=== PATIENT | female | born 1940 | race Caucasian/White ===

== ENCOUNTER 2021-05-19 07:39 | Inpatient (IN) | payer MEDICARE ==
[~2021-05-19] VITALS: Ht 170 cm; Wt 86.3 kg
[2021-05-19] MEDS ORDERED: RT-ALBUTEROL HFA 8.5 GM INHALER IH PRN (07:45)
[2021-05-19] MEDS ORDERED: diphenhydrAMINE 25 MG TAB (BENADRYL) PO PRN (07:45)
[2021-05-19] MEDS ORDERED: LOPERAMIDE 2 MG (IMODIUM) TABLET PO PRN (07:45)
[2021-05-19] MEDS ORDERED: CALCIUM CARBONATE 500 MG (TUMS) TAB.CHEW PO PRN (07:45)
[2021-05-19] MEDS ORDERED: DOCUSATE SODIUM 100 MG (COLACE) CAP PO PRN (07:45)
[2021-05-19] MEDS ORDERED: ACETAMINOPHEN 500 MG TAB (TYLENOL) PO PRN (07:45)
[2021-05-19] MEDS ORDERED: FUROSEMIDE 40 MG/4 ML INJ (LASIX) IVP NR (07:45)
--- OUTSIDE RECORDS SUMMARY | 2021-05-19 11:06 | XMS REPORT ---
Author Anneliese Oro Organization [facility] Address [address] [place], [place] [id number] Care Team Providers Care Hydraulic Governor Assembler Name Role Phone Diane Osuna PCP Allergies and Adverse Reactions Name Reaction Notes Lidocaine Neosporin Contrast media allergy Plan of Treatment Planned Activity Comments Planned Date Planned Time Plan/Goal General health panel (comprehensive metabolic panel, CBC, TSH) 09/11/2018 12:00 AM HEMOGLOBIN A1C 09/11/2018 12:00 AM evaluation of worsening plaque psorasis [id number], PVD , worsening Plaque Psorasis, PVD and Venous statis of bilat lower leg s CBC W/ AUTO DIFF (RFLX MAN DIFF IF IND). 09/05/2019 12:00 AM CMP 09/05/2019 12:00 AM TSH 09/05/2019 12:00 AM T4 FREE 09/05/2019 12:00 AM B12 binding protein measurement 09/05/2019 12:00 AM VITAMIN D (25 HYDROXY) 09/05/2019 12:00 AM Mammogram, screening, digital with avery 01/23/2021 1 2:00 AM Medications Active Name Start Date Estimated Completion Date SIG Co mments Metamucil 3.4 gram/5.4 gram oral powder use as directed by oral route 2 times a day Stool Softener oral amlodipine 5 mg oral tablet take 1 tablet (5 mg) by oral route once daily losartan-hydrochlorothiazide 50-12.5 mg oral tablet take 1 tablet by oral route once daily Eliquis 5 mg oral tablet 01/27/2020 TAKE ONE/HALF TA BLET BY MOUTH TWICE DAILY amiodarone oral tablet 200 mg 12/06/2020 12/01/2021 TAKE 1 TABL ET ONCE DAILY rosuvastatin 20 mg oral tablet t penny 1 tablet (20 mg) by oral route once daily Tremfya 100 mg/mL subcutaneous auto-injector inject 1 milliliter (100 mg) by subcutaneous route every 4 weeks for 2 doses then every 8 weeks sertraline 50 mg oral tablet 03/14/2021 03/09/2022 bernabe e 1 tablet (50 mg) by oral route once daily for 90 days omeprazole 20 mg capsule,delayed release 04/09/2021 022 TAKE 1 CAPSULE DAILY Name Start Date Expiration Date SIG Comments furosemide 20 mg oral tablet 06/05/2019 01/01/2020 bernabe e 1 tablet (20 mg) by oral route once daily prn for 30 days Macrobid 100 mg oral capsule 09/05/2019 09/12/2019 bernabe e 1 capsule (100 mg) by oral route every 12 hours with food for 7 days Lipitor 40 mg oral tablet 09/19/2019 10/19/2019 take 1 tablet by oral route every other day for 30 days Keflex 500 mg oral capsule 09/29/2019 10/13/2019 take 2 capsules (1,000 mg) by oral route every 12 hours for 14 days Eliquis 5 mg oral tablet 01/27/2020 07/25/2020 2 times per day for 30 days as directed takes 1/2 tab to save $ and bleeding iss ues doxycycline hyclate 100 mg oral tablet 04/05/2020 0 take 1 tablet (100 mg) by oral route every 12 hours for 14 days mupirocin 2 % topical ointment 06/09/2020 08/18/2020 A PPLY A SMALL AMOUNT TO THE AFFECTED AREA BY TOPICAL ROUTE 3 TIMES PER DAY FOR 30 DAYS for 14 days losartan 50 mg tablet 10/25/2020 11/01/2020 TAKE 1 TABLET DAILY FOR 7 DAYS. Macrobid oral capsule 100 mg 10/28/2020 11/04/2020 bernabe e 1 capsule (100 mg) by oral route 2 times per day with food for 7 days Macrobid 100 mg oral capsule 02/20/2021 02/27/2021 bernabe e 1 capsule (100 mg) by oral route every 12 hours with food for 7 days Discontinued Name Start Date Discontinued Date SIG Comments tramadol 50 mg oral tablet 03/14/2021 take 1 tablet (50 mg) by oral route every 6 hours as needed prednisone 20 mg oral tablet 03/14/2021 bernabe e 1 tablet (20 mg) by oral route 2 times per day Xanax 0.25 mg oral tablet 02/20/2021 cephalexin 500 mg oral capsule 09/19/2019 take one t ab PO TID nystatin topical 03/14/2021 Humira 20 mg/0.4 mL subcutaneous syringe kit 03/14/2021 inject 1 milliliter by subcutaneous route every 2 weeks hydrocortisone 2.5 % topical cream 09/17/2019 03/14/2021 APPLY A THIN LAYER TO AFFECTED AREA(S) TWICE DAILY Zoloft 25 mg oral tablet 02/20/2021 02/28/2021 take 1 tablet (25 mg) by oral route once daily for 30 days alprazolam 0.25 mg oral tablet 02/20/2021 03/14/2021 t penny 1 tablet by oral route once a day (at bedtime) as needed for 30 days Problem List Description Status Onset CAD (coronary artery disease) Active Essential Hypertension Active History of SD (myocardial infarction) Active Pedal edema Active Situational anxiety Active PVD (peripheral vascular disease) Active Dysthymic syndrome Active Plaque psoriasis Active Situational depression Active Lower extremity venous stasis Active Atrial Fibrillation Active Mixed hyperlipidemia Active Chronic constipation Active GERD (gastroesophageal reflux disease) Active shelter use 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 Active Gait disturbance Active CVA, old, alterations of sensations Active Osteoarthritis knee Active Osteoarthritis of both hips Active Onychomycosis of toenail Active Polyarthralgia Active 03/15/2021 Vitamin B12 deficiency Active 03/15/2021 Vitamin D deficiency Active 03/15/2021 Iron deficiency anemia due to chronic blood loss Active 03/15/2021 Vital Signs Date Time BP-Sys(mm[Hg] BP-Karina(mm[Hg]) HR(bpm) RR(rpm) Temp WT HT HC BMI BSA BMI Percentile O2 Sat(%) 04/26/2021 9:57:00 AM 140 mm[Hg] 66 mm[Hg] 63 {beats}/min 20 rpm 98.1 F 197 lbs 67 in 30.8542 kg/m2 2.0553 m2 97 % 03/30/2021 9:17:00 AM 150 mm[Hg] 68 mm[Hg] 63 {beats}/min 20 rpm 97.2 F 197 lbs 67 in 30.85 kg/m2 2.06 m2 98 % 03/16/2021 8:51:00 AM 156 mm[Hg] 78 mm[Hg] 68 {beats}/min 20 rpm 97.3 F 196.312 lbs 67 in 30.7466 kg/m2 2.0517 m2 95 % 03/14/2021 9:12:00 AM 154 mm[Hg] 74 mm[Hg] 72 {beats}/min 18 rpm 97.3 F 196.312 lbs 67 in 30.75 kg/m2 2.05 m2 96 % 02/20/2021 9:19:00 AM 116 mm[Hg] 60 mm[Hg] 65 {beats}/min 18 rpm 97.9 F 67 in 95 % 01/25/2021 9:51:00 AM 128 mm[Hg] 80 mm[Hg] 101 {beats}/min 18 rpm 97.9 F 204 lbs 67 in 31.9506 kg/m2 2.0915 m2 97 % 12/06/2020 9:37:00 AM 140 mm[Hg] 60 mm[Hg] 57 {beats}/min 16 rpm 97.9 F 210 lbs 67 in 32.89 kg/m2 2.12 m2 96 % 11/29/2020 9:16:00 AM 124 mm[Hg] 66 mm[Hg] 63 {beats}/min 18 rpm 98.1 F 210 lbs 67 in 32.89 kg/m2 2.12 m2 97 % 10/28/2020 10:53:00 AM 104 mm[Hg] 70 mm[Hg] 113 {beats}/min 18 rpm 97.9 F 67 in 97 % 10/06/2020 8:59:00 AM 148 mm[Hg] 70 mm[Hg] 65 {beats}/min 24 rpm 97.7 F 215.312 lbs 67 in 33.7224 kg/m2 2.1487 m2 98 % 09/21/2020 9:30:00 AM 128 mm[Hg] 64 mm[Hg] 75 {beats}/min 18 rpm 98.6 F 217 lbs 67 in 33.99 kg/m2 2.16 m2 97 % 08/11/2020 1:13:00 PM 148 mm[Hg] 74 mm[Hg] 62 {beats}/min 18 rpm 97.2 F 209 lbs 67 in 32.7337 kg/m2 2.1169 m2 98 % 08/10/2020 3:33:00 PM 150 mm[Hg] 68 mm[Hg] 60 {beats}/min 06/16/2020 9:48:00 AM 130 mm[Hg] 70 mm[Hg] 118 {beats}/min 18 rpm 98.1 F 214.312 lbs 67 in 33.57 kg/m2 2.14 m2 98 % 03/24/2020 8:52:00 AM 142 mm[Hg] 66 mm[Hg] 66 {beats}/min 18 rpm 98.7 F 211 lbs 67 in 33.0469 kg/m2 2.1271 m2 97 % 09/18/2019 12:33:00 PM 100 mm[Hg] 78 mm[Hg] 63 {beats}/min 16 rpm 97.7 F 09/09/2019 4:20:00 PM 138 mm[Hg] 70 mm[Hg] 88 {beats}/min 16 rpm 07/20/2019 8:52:00 AM 140 mm[Hg] 64 mm[Hg] 76 {beats}/min 18 rpm 97.5 F 222 lbs 67 in 34.7698 kg/m2 2.1818 m2 98 % 07/04/2019 8:13:00 AM 150 mm[Hg] 60 mm[Hg] 84 {beats}/min 18 rpm 97.9 F 219.312 lbs 67 in 34.35 kg/m2 2.17 m2 98 % 06/12/2019 9:29:00 AM 140 mm[Hg] 68 mm[Hg] 69 {beats}/min 18 rpm 97.9 F 222 lbs 67 in 34.7698 kg/m2 2.1818 m2 96 % 03/30/2019 10:43:00 AM 150 mm[Hg] 64 mm[Hg] 62 {beats}/min 18 rpm 98.1 F 221 lbs 67 in 34.61 kg/m2 2.18 m2 96 % 02/16/2019 10:15:00 AM 130 mm[Hg] 66 mm[Hg] 65 {beats}/min 18 rpm 97.9 F 215 lbs 67 in 33.6734 kg/m2 2.1471 m2 97 % 02/02/2019 10:49:00 AM 126 mm[Hg] 68 mm[Hg] 78 {beats}/min 18 rpm 97.9 F 216 lbs 67 in 33.83 kg/m2 2.15 m2 95 % 11/14/2018 9:12:00 AM 122 mm[Hg] 78 mm[Hg] 65 {beats}/min 18 rpm 97.9 F 209.25 lbs 67 in 32.7728 kg/m2 2.1182 m2 97 % 09/09/2018 11:20:00 AM 140 mm[Hg] 70 mm[Hg] 62 {beats}/min 18 rpm 98.1 F 205 lbs 67 in 32.11 kg/m2 2.10 m2 98 % Social History Name Description Comments Tobacco Never smoker History of Procedures Date Ordered Description Order Status 09/10/2018 12:00 AM MAMMOGRAPHY SCREENING, BILATERAL Reviewe d 09/11/2018 12:00 AM ROUTINE VENIPUNCTURE Reviewed 09/16/2018 12:00 AM MAMMOGRAPHY BILATERAL DX DIGITAL Reviewe d 09/16/2018 12:00 AM US BREAST UNI REAL TIME WITH IMAGE COMPL ETE Reviewed 09/25/2018 12:00 AM BX BREAST 1ST LESION US IMAG Reviewed 03/11/2019 12:00 AM BREAST TOMOSYNTHESIS UNI Reviewed 03/30/2019 12:00 AM TDAP VACCINE 7 YRS/> IM Reviewed 03/01/2020 12:00 AM BREAST TOMOSYNTHESIS BI Reviewed 07/21/2020 12:00 AM Moderna Covid-19 Vaccine Reviewed 08/10/2020 12:00 AM NO CHARGE OV Reviewed 08/18/2020 12:00 AM Moderna Covid-19 Vaccine Reviewed 10/06/2020 9:05 AM URINALYSIS AUTO W/O SCOPE Reviewed 11/29/2020 12:00 AM COMPLETE CBC W/AUTO DIFF WBC Reviewed 11/29/2020 12:00 AM COMPREHEN METABOLIC PANEL Reviewed 11/29/2020 12:00 AM COLLECTION VENOUS BLOOD VENIPUNCTURE Rev iewed 02/20/2021 10:14 AM URINALYSIS AUTO W/O SCOPE Reviewed 02/20/2021 12:00 AM COMPLETE CBC W/AUTO DIFF WBC Reviewed 02/20/2021 12:00 AM COMPREHEN METABOLIC PANEL Reviewed 02/20/2021 12:00 AM ASSAY THYROID STIM HORMONE Reviewed 02/20/2021 12:00 AM ASSAY OF FREE THYROXINE Reviewed 02/20/2021 12:00 AM LIPID PANEL Reviewed 02/20/2021 12:00 AM VITAMIN D 25 HYDROXY Reviewed 02/20/2021 12:00 AM COLLECTION VENOUS BLOOD VENIPUNCTURE Rev iewed 03/18/2021 12:00 AM REMOVAL IMPACTED CERUMEN INSTRUMENTATION UNILAT Reviewed 03/18/2021 12:00 AM TRIM NAIL(S) ANY NUMBER Reviewed 03/30/2021 12:00 AM INFLUENZA VACCINE SPLT PRSRV FREE INC AN TIGEN IM Reviewed 03/30/2021 12:00 AM THER/PROPH/DIAG INJ SC/IM Reviewed Results Summary Date and Description Results 10/06/2020 9:28 AM Clarity Ur cloudy Urine-Edgard r straw yellow Glucose Ur-sCnc neg Bilirub Ur Ql neg Ketones Ur Ql Strip neg Sp Gr Ur Qn 1.010 Hgb Ur Ql Strip trace pH Ur-LsCnc 5.5 Prot Ur Ql Strip neg Urobilinogen Ur-mCnc 0.2 Nitrite Ur Ql Strip neg WBC # Ur small 11/29/2020 10:45 AM WBC 7.0 RBC 4.18 HGB 13.40 g /dLHCT 41.90 %MCV 100.0 fLMCH 32.10 pgMCHC 32.0 g/dLRDW SD 53 %RDW CV 14.40 %MPV 9.50 fLPLT 181 x10E3/uLNRBC# 0.00 NRBC% 0.0 %NEUT 68.2 %LYMP 13.5 %MONO 12.3 %EOS 4.6 %BASO 1.1 #NEUT 4.79 #LYMP 0.95 #MONO 0.86 #EOS 0.32 #BASO 0.08 MANUAL DIFF NOT IND GLUCOSE 115 SODIUM 140 POTASSIUM 4.2 CHLORIDE 98.0 mmol/LCO2 30 BUN 11.0 mg/dLCREATININE 0.70 mg/dLSGOT/AST 24 SGPT/ALT 15 ALK PHOS 90 TOTAL PROTEIN 7.4 ALBUMIN 4.3 TOTAL BILI 0.6 CALCIUM 9.30 mg/dLAGE 80 GFR NonAA 81 GFR AA 98 eGFR 81 mL/min/1.73meGFR AA* >60 mL/min/1.73m 02/20/2021 10:25 AM WBC 9.0 RBC 3.60 HGB 11.40 g /dLHCT 35.90 %MCV 100.0 fLMCH 31.70 pgMCHC 31.80 g/dLRDW SD 53 %RDW CV 14.50 %MPV 9.90 fLPLT 160 x10E3/uLNRBC# 0.00 NRBC% 0.0 %NEUT 76.7 %LYMP 9.6 %MONO 9.3 %EOS 3.0 %BASO 0.7 #NEUT 6.91 #LYMP 0.86 #MONO 0.84 #EOS 0.27 #BASO 0.06 MANUAL DIFF NOT IND GLUCOSE 128 SODIUM 135 POTASSIUM 3.9 CHLORIDE 100.0 mmol/LCO2 28 BUN 13.0 mg/dLCREATININE 0.70 mg/dLSGOT/AST 30 SGPT/ALT 21 ALK PHOS 87 TOTAL PROTEIN 6.9 ALBUMIN 3.5 TOTAL BILI 0.6 CALCIUM 9.10 mg/dLAGE 80 GFR NonAA 81 GFR AA 98 eGFR 81 mL/min/1.73meGFR AA* >60 mL/min/1.73mTSH 0.92 VITAMIN D 32.2 TRIGLYCERIDES 74 CHOLESTEROL 110.0 mg/dLHDL 55 TOT CHOL/HDL 2.0 LDL (CALC) 40 FREE T4 1.96 02/20/2021 10:26 AM Clarity Ur cl Urine-Color ye llow Glucose Ur-sCnc neg Bilirub Ur Ql neg Ketones Ur Ql Strip neg Sp Gr Ur Qn 1.010 Hgb Ur Ql Strip sm pH Ur- LsCnc 6.0 Prot Ur Ql Strip neg Urobilinogen Ur-mCnc 0.2 Nitrite Ur Ql Strip neg WBC # Ur sm History Of Immunizations Name Date Admin Mfg Name Mfg Code Trade Name Lot# Route Inj Vis Given Vis Pub CVX Tdap 03/30/2019 GlaxoSmithKline SKB BOOSTRIX [id number] Intramuscula r Right Upper Arm 03/30/2019 06/10/2021 115 Covid-19 07/21/2020 [employer] MOD Moderna COVID-19 Vaccin e [id number] Intramuscular Left Upper Arm 07/21/2020 05/10/2020 207 Covid-19 08/18/2020 Moderna [employer] MOD Moderna COVID-19 Vaccin e [id number] Intramuscular Left Deltoid 08/18/2020 05/10/2020 207 Influenza 03/30/2021 sanofi pasteur PMC FLUZONE-HIGH DOSE [id number] In tramuscular Left Deltoid 03/30/2021 01/13/2021 135 History of Past Illness Name Date of Onset Comments Essential Hypertension History of SD (myocardial infarction) CAD (coronary artery disease) Pedal edema Situational anxiety PVD (peripheral vascular disease) Dysthymic syndrome Plaque psoriasis Situational depression Lower extremity venous stasis Atrial Fibrillation Mixed hyperlipidemia Chronic constipation GERD (gastroesophageal reflux disease) 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 use 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 Gait disturbance CVA, old, alterations of sensations Osteoarthritis knee Osteoarthritis of both hips Onychomycosis of toenail Polyarthralgia 03/15/2021 Vitamin B12 deficiency 03/15/2021 Vitamin D deficiency 03/15/2021 Iron deficiency anemia due to chronic blood loss 03/15/2021 Right hip pain Sep 09 2018 11:25AM Lumbar back pain Sep 09 2018 11:25AM Psoriasis (a type of skin inflammation) Sep 09 2018 11:25AM Encounter for screening mammogram for breast cancer Sep 10 4:35PM Lumbar back pain Sep 11 2018 8:22AM Right hip pain Sep 11 2018 8:22AM CAD (coronary artery disease) Sep 11 2018 9:37PM Hypertension Sep 11 2018 9:37PM Hypothyroidism Sep 11 2018 9:37PM CAD (coronary artery disease) Sep 11 2018 9:54PM Screening Mammogram For High Risk Patient Sep 16 2018 10:30A M Breast mass, right Sep 19 2018 11:56AM Breast cyst, right Sep 25 2018 10:35AM PVD (peripheral vascular disease) Nov 14 2018 9:12AM Varicosities of leg Nov 14 2018 9:12AM shelter (current) use 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 Nov 14 2018 9:12A M CVD (cardiovascular disease) Nov 14 2018 9:12AM CVD (cardiovascular disease) Feb 02 2019 10:53AM Varicosities of leg Feb 02 2019 10:53AM Anticoagulant long-term use Feb 02 2019 10:53AM Diabetes Feb 02 2019 10:53AM Dermatitis Feb 16 2019 10:19AM Acute Left Bitten or stung by nonvenomou s insect and other nonvenomous arthropods, initial encounter Improving Feb 16 2019 10:19AM Breast mass, right Mar 11 2019 12:23PM Immunization due Mar 30 2019 10:47AM CVD (cardiovascular disease) Mar 30 2019 10:47AM HTN (hypertension) Mar 30 2019 10:47AM Throat Pain Jun 12 2019 9:31AM Cough Jun 12 2019 9:31AM Viral illness Jun 12 2019 9:31AM CAD (coronary artery disease) Jul 04 2019 8:18AM Essential Hypertension Jul 04 2019 8:18AM History of SD (myocardial infarction) Jul 04 2019 8:18AM Situational anxiety Jul 04 2019 8:18AM Chest pain Jul 04 2019 8:18AM PVD (peripheral vascular disease) Jul 29 2019 9:01AM Toenail fungus Jul 29 2019 9:01AM CAD (coronary artery disease) Jul 29 2019 9:01AM Varicosities of leg Jul 29 2019 9:01AM Neuropathy Jul 29 2019 9:01AM PVD (peripheral vascular disease) Jul 20 2019 8:56AM CAD (coronary artery disease) Jul 20 2019 8:56AM Varicosities of leg Jul 20 2019 8:56AM Neuropathy Jul 20 2019 8:56AM Toenail fungus Jul 20 2019 8:56AM Fatigue Sep 05 2019 11:04AM Weakness Sep 05 2019 11:04AM Anemia Sep 05 2019 11:04AM CVD (cardiovascular disease) Sep 05 2019 11:04AM HTN (hypertension) Sep 05 2019 11:04AM Hypothyroid Sep 05 2019 11:04AM B12 deficiency Sep 05 2019 11:04AM Vitamin D deficiency Sep 05 2019 11:04AM CVD (cardiovascular disease) Sep 09 2019 4:02PM CVA (cerebral vascular accident) Sep 09 2019 4:02PM Anxiety Sep 09 2019 4:02PM Varicosities of leg Sep 09 2019 4:02PM HTN (hypertension) Sep 18 2019 11:24AM CVA (cerebral vascular accident) Sep 18 2019 11:24AM CVD (cardiovascular disease) Sep 18 2019 11:24AM Breast cancer screening by mammogram Mar 01 2020 9:00AM CVD (cardiovascular disease) Mar 24 2020 8:58AM CVA (cerebral vascular accident) Mar 24 2020 8:58AM Varicosities of leg Mar 24 2020 8:58AM Fungal toenail infection Mar 24 2020 8:58AM CVD (cardiovascular disease) Mar 24 2020 12:14PM CAD (coronary artery disease) Mar 24 2020 12:14PM Varicose veins of both lower extremities Mar 24 2020 12:14PM PVD (peripheral vascular disease) Mar 24 2020 12:14PM Fungal toenail infection Mar 24 2020 12:14PM Anxiety May 19 2020 9:43AM 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) use 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 May 19 2020 9:43A M CVD (cardiovascular disease) Jun 16 2020 10:03AM Varicose veins of both lower extremities Jun 16 2020 10:03AM PVD (peripheral vascular disease) Jun 16 2020 10:03AM CVD (cardiovascular disease) Jun 17 2020 8:02PM PVD (peripheral vascular disease) Jun 17 2020 8:02PM Varicosities of leg Jun 17 2020 8:02PM Fungal nail infection Jun 17 2020 8:02PM Encounter for administration of COVID-19 vaccine Jul 19 2020 7:23PM Encounter for administration of COVID-19 vaccine Aug 15 2020 3:18PM CVD (cardiovascular disease) Aug 11 2020 1:19PM HTN (hypertension) Aug 11 2020 1:19PM Anxiety Aug 11 2020 1:19PM CAD (coronary artery disease) Aug 11 2020 1:19PM Chronic PVD (peripheral vascular disease) Sep 21 2020 2:23P M Bilateral Lower Fungal toenail infection Sep 21 2020 2:23PM Varicose veins of right lower extremity with inflammation Ap r 2020 2:23PM Varicose veins of left lower extremity with inflammation Sep 21 2020 2:23PM CVD (cardiovascular disease) Sep 21 2020 9:38AM Varicose veins of right lower extremity with inflammation Ap r 2020 9:38AM Varicose veins of left lower extremity with inflammation Sep 21 2020 9:38AM Bilateral Fungal toenail infection Sep 21 2020 9:38AM UTI (Urinary Tract Infection) Oct 06 2020 9:05AM Tachycardia Oct 28 2020 10:51AM Atrial fibrillation Oct 28 2020 10:51AM Anxiety Oct 28 2020 10:51AM HTN (hypertension) Oct 28 2020 10:51AM HTN (hypertension) Nov 29 2020 10:23AM Afib Nov 29 2020 10:23AM Atrial fibrillation Nov 29 2020 9:16AM Anxiety Nov 29 2020 9:16AM PVD (peripheral vascular disease) Dec 06 2020 6:07PM CAD (coronary artery disease) Dec 06 2020 6:07PM Varicose veins of both lower extremities Dec 06 2020 6:07PM Pedal edema Dec 06 2020 6:07PM Toenail deformity Dec 06 2020 9:36AM PVD (peripheral vascular disease) Dec 06 2020 9:36AM Varicose veins of both lower extremities Dec 06 2020 9:36AM CAD (coronary artery disease) Dec 06 2020 9:36AM Screening for breast cancer Jan 23 2021 11:27AM CAD (coronary artery disease) Jan 25 2021 9:50AM Essential Hypertension Jan 25 2021 9:50AM Situational anxiety Jan 25 2021 9:50AM Edema Jan 25 2021 9:50AM HTN (hypertension) Sep 2020 10:13AM PAD (peripheral artery disease) Sep 2020 10:13AM Hyperlipidemia Sep 2020 10:13AM Fatigue Sep 2020 10:13AM Vitamin D deficiency Sep 2020 10:13AM Hypothyroid Sep 2020 10:13AM UTI (urinary tract infection) Sep 2020 10:13AM Anxiety Sep 2020 9:19AM Contusion Sep 2020 9:19AM CAD (coronary artery disease) Sep 2020 9:19AM Essential Hypertension Sep 2020 9:19AM Pedal edema Sep 2020 9:19AM CAD (coronary artery disease) Mar 15 2021 10:55AM Plaque psoriasis Mar 15 2021 10:55AM Osteoarthritis of both hips Mar 15 2021 10:55AM Polyarthralgia Mar 15 2021 10:55AM Vitamin B12 deficiency Mar 15 2021 10:55AM Vitamin D deficiency Mar 15 2021 10:55AM Iron deficiency anemia due to chronic blood loss Mar 15 2021 10:55AM Bitten or stung by nonvenomous insect an d other nonvenomous arthropods, initial encounter Mar 15 2021 10:55AM Lumbar stenosis with neurogenic claudication Mar 15 2021 10: 55AM CAD (coronary artery disease) Mar 14 2021 9:22AM PVD (peripheral vascular disease) Mar 14 2021 9:22AM Plaque psoriasis Mar 14 2021 9:22AM Situational depression Mar 14 2021 9:22AM Lower extremity venous stasis Mar 14 2021 9:22AM Onychomycosis of toenail Mar 14 2021 9:22AM Cerumen debris on tympanic membrane of both ears Mar 14 2021 9:22AM Cerumen debris on tympanic membrane of both ears Mar 16 2021 8:54AM Bilateral Onychomycosis Mar 16 2021 8:54AM Tremors of nervous system Mar 30 2021 9:17AM CAD (coronary artery disease) Mar 30 2021 9:17AM Essential Hypertension Mar 30 2021 9:17AM Situational anxiety Mar 30 2021 9:17AM Plaque psoriasis Mar 30 2021 9:17AM Gait disturbance Mar 30 2021 9:17AM Osteoarthritis knee Mar 30 2021 9:17AM Osteoarthritis of both hips Mar 30 2021 9:17AM Need for vaccination Mar 30 2021 9:17AM Payers Insurance Name Company Name Plan Name Plan Number Policy Number Raj cy Group Number Start Date Medicare RHC Medicare RHC [id number] N/ A [id number] N/ A Medicare Part B Medicare Of [place] [id number] N/A Medicare Part A Medicare - Lab/Xray [id number] N/A History of Encounters Visit Date Visit Type Provider 04/26/2021 Office visit Diane A. Major PLANT CARE WORKER 03/30/2021 Office visit Diane A. Major PLANT CARE WORKER 03/16/2021 Office visit Hanane Ojeda PLANT CARE WORKER 03/14/2021 Office visit Hanane Ojeda PLANT CARE WORKER 02/20/2021 Office visit Diane A. Major PLANT CARE WORKER 01/25/2021 Office visit Diane A. Major PLANT CARE WORKER 12/30/2020 Voided Diane A. Major PLANT CARE WORKER 12/06/2020 Office visit Diane A. Major PLANT CARE WORKER 11/29/2020 Office visit Diane A. Major PLANT CARE WORKER 11/24/2020 Hospital Sarai Juarez MD 10/28/2020 Office visit Diane A. Major PLANT CARE WORKER 10/06/2020 Office visit Diane A. Major PLANT CARE WORKER 09/21/2020 Office visit Diane A. Major PLANT CARE WORKER 08/18/2020 Nurse visit Hanane Ojeda PLANT CARE WORKER 08/11/2020 Office visit Diane A. Major PLANT CARE WORKER 08/10/2020 Nurse visit Jordana Silva APR N 07/21/2020 Nurse visit Hanane Ojeda PLANT CARE WORKER 06/16/2020 Office visit Diane A. Major PLANT CARE WORKER 06/16/2020 Voided Susana FLANAGAN RN 05/19/2020 Office visit Diane A. Major PLANT CARE WORKER 03/24/2020 Office visit Diane A. Major PLANT CARE WORKER 02/02/2020 Laboratory Susana FLANAGAN RN 11/03/2019 Laboratory Kathy FLANAGAN RN 09/18/2019 Office visit Diane A. Major PLANT CARE WORKER 09/09/2019 Office visit Diane A. Major PLANT CARE WORKER 09/07/2019 Hospital Sarai Juarez MD 09/07/2019 [facility] Anthony Harley MD 07/20/2019 Office visit Diane A. Major PLANT CARE WORKER 07/04/2019 Office visit Hanane Ojeda PLANT CARE WORKER 06/12/2019 Office visit Diane A. Major PLANT CARE WORKER 03/30/2019 Office visit Diane A. Major PLANT CARE WORKER 02/16/2019 Office visit Diane A. Major PLANT CARE WORKER 02/02/2019 Office visit Diane A. Major PLANT CARE WORKER 11/14/2018 Office visit Diane A. Major PLANT CARE WORKER 09/09/2018 Office visit Diane A. Major PLANT CARE WORKER 10/23/2017 Hospital Sarai Juarez MD 05/07/2017 [facility] Sarai Juarez MD 11/22/2016 [facility] Anthony Harley MD 11/01/2016 [facility] Anthony Harley MD 11/01/2016 [facility] Sarai Juarez MD 10/29/2016 [facility] Sarai Juarez MD 10/24/2016 [facility] Sarai Juarez MD 05/31/2016 [facility] Emerson Siddiqui MD 05/31/2016 [facility] 05/30/2016 [facility] Emerson Siddiqui MD 05/29/2016 [facility] 05/29/2016 [facility] Sarai Juarez MD 05/13/2015 [facility] Sarai Juarez MD 10/29/2014 Hospital Sarai Juarez MD
--- OUTSIDE RECORDS SUMMARY | 2021-05-19 11:06 | XMS REPORT ---
Author Anneliese Oro Organization [facility] Address [address] [place], [place] [id number] Care Team Providers Care Truck Packer Name Role Phone Diane Osuna PCP Allergies [...] release 04/09/2021 022 TAKE 1 CAPSULE DAILY Zithromax 500 mg oral tablet 05/15/2021 05/22/2021 bernabe e 1 tablet (500 mg) by oral route once daily for 7 days prednisone 10 mg oral tablet 05/15/2021 05/20/2021 bernabe e 1 by oral route QD for 5 days albuterol sulfate 2.5 mg /3 mL (0.083 %) inhalation so lution for nebulization 05/17/2021 09/14/2021 inhale 3 milliliters (2.5 mg ) by nebulization route 4 times per day for 30 days promethazine-codeine 6.25-10 mg/5 mL oral syrup 05/17/2021 06/10/2021 take 5-10 milliliters by oral route once a day (at bedtime) as needed for 24 days Name Start Date Expiration Date SIG Comments [...] disease) Active Essential Hypertension Active History of [place] (myocardial infarction) Active Pedal edema Active Situational anxiety Active PVD (peripheral vascular disease) Active Dysthymic syndrome Active Plaque psoriasis Active Situational depression Active Lower extremity venous stasis Active Atrial Fibrillation Active Mixed hyperlipidemia Active Chronic constipation Active GERD (gastroesophageal reflux disease) Active prison use 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 Active Gait disturbance Active [...] Results 10/06/2020 9:28 AM Clarity Ur cloudy Urine-[place] r straw yellow Glucose Ur-sCnc neg Bilirub [...] Vis Given Vis Pub CVX Tdap 03/30/2019 Tidy [id number] SKB BOOSTRIX [id number] Intramuscula r Right Upper Arm 03/30/2019 06/10/2021 115 Covid-19 07/21/2020 Moderna [employer] MOD Moderna COVID-19 Vaccin e [id number] Intramuscular Left Upper Arm 07/21/2020 05/10/2020 207 Covid-19 08/18/2020 [employer] MOD Moderna COVID-19 Vaccin e [id number] Intramuscular Left Deltoid 08/18/2020 05/10/2020 207 Influenza 03/30/2021 [facility] FLUZONE-HIGH DOSE [id number] In tramuscular Left Deltoid 03/30/2021 01/13/2021 135 History of Past Illness Name Date of Onset Comments Essential Hypertension History of [place] (myocardial infarction) CAD (coronary artery disease) Pedal edema Situational anxiety PVD (peripheral vascular disease) Dysthymic syndrome Plaque psoriasis Situational depression Lower extremity venous stasis Atrial Fibrillation Mixed hyperlipidemia Chronic constipation GERD (gastroesophageal reflux disease) 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 Gait disturbance CVA, old, [...] Varicosities of leg Nov 14 2018 9:12AM 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 Nov 14 2018 [...] Hypertension Jul 04 2019 8:18AM History of [place] (myocardial infarction) Jul 04 2019 8:18AM Situational [...] 2020 12:14PM Anxiety May 19 2020 9:43AM 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 May 19 2020 [...] Essential Hypertension Sep 2020 9:19AM Pedal edema Feb 20 2021 9:19AM CAD (coronary artery disease) Mar 15 [...] Need for vaccination Mar 30 2021 9:17AM Essential Hypertension Apr 26 2021 9:56AM Pedal edema Apr 26 2021 9:56AM Situational depression Apr 26 2021 9:56AM Gait disturbance Apr 26 2021 9:56AM Bursitis Apr 26 2021 9:56AM Encounter for laboratory testing for COVID-19 virus May 17 11:45AM Shortness of breath May 17 2021 11:45AM Diarrhea May 17 2021 11:45AM Congestion of nasal sinus May 17 2021 11:45AM Runny nose May 17 2021 11:45AM Body aches May 17 2021 11:45AM Cough May 17 2021 11:45AM COVID May 17 2021 12:02PM Payers Insurance Name Company Name Plan Name Plan Number Policy Number Raj cy Group Number Start Date Medicare RHC Medicare RHC [id number] N/ A [id number] N/ A Medicare Part B Medicare Of [place] [id number] N/A Medicare Part A Medicare - Lab/Xray [id number] N/A History of Encounters Visit Date Visit Type Provider 05/17/2021 Office visit Diane Osuna CHAIR CANER 04/26/2021 Office visit Diane Osuna CHAIR CANER 03/30/2021 Office visit Diane Osuna CHAIR CANER 03/16/2021 Office visit Hanane Ojeda CHAIR CANER 03/14/2021 Office visit Hanane Ojeda CHAIR CANER 02/20/2021 Office visit Diane A. Major CHAIR CANER 01/25/2021 Office visit Diane A. Major CHAIR CANER 12/30/2020 Voided Diane A. Major CHAIR CANER 12/06/2020 Office visit Diane A. Major CHAIR CANER 11/29/2020 Office visit Diane A. Major CHAIR CANER 11/24/2020 [facility] Sarai Juarez MD 10/28/2020 Office visit Diane A. Major CHAIR CANER 10/06/2020 Office visit Diane A. Major CHAIR CANER 09/21/2020 Office visit Diane A. Major CHAIR CANER 08/18/2020 Nurse visit Hanane Ojeda CHAIR CANER 08/11/2020 Office visit Diane A. Major CHAIR CANER 08/10/2020 Nurse visit Jordana MartinezNathalia Silva APR N 07/21/2020 Nurse visit Hanane Ojeda CHAIR CANER 06/16/2020 Office visit Diane A. Major CHAIR CANER 06/16/2020 Voided Susana FLANAGAN RN 05/19/2020 Office visit Diane A. Major CHAIR CANER 03/24/2020 Office visit Diane A. Major CHAIR CANER 02/02/2020 Laboratory Susana FLANAGAN RN 11/03/2019 Laboratory Kathy FLANAGAN RN 09/18/2019 Office visit Diane A. Major CHAIR CANER 09/09/2019 Office visit Diane A. Major CHAIR CANER 09/07/2019 [facility] Sarai Juarez MD 09/07/2019 [facility] Anthony Harley MD 07/20/2019 Office visit Diane A. Major CHAIR CANER 07/04/2019 Office visit Hanane Ojeda CHAIR CANER 06/12/2019 Office visit Diane A. Major CHAIR CANER 03/30/2019 Office visit Diane A. Major CHAIR CANER 02/16/2019 Office visit Diane A. Major CHAIR CANER 02/02/2019 Office visit Diane A. Major CHAIR CANER 11/14/2018 Office visit Diane A. Major CHAIR CANER 09/09/2018 Office visit Diane A. Major CHAIR CANER 10/23/2017 [facility] Sarai Juarez MD 05/07/2017 [facility] Sarai Juarez MD 11/22/2016 [facility] Anthony Harley MD 11/01/2016 [facility] Anthony Harley MD 11/01/2016 [facility] Sarai Juarez MD 10/29/2016 [facility] Sarai Juarez MD 10/24/2016 [facility] Sarai Juarez MD 05/31/2016 [facility] Emerson Siddiqui MD 05/31/2016 [facility] 05/30/2016 [facility] Emerson Siddiqui MD 05/29/2016 [facility] 05/29/2016 [facility] Sarai Juarez MD 05/13/2015 [facility] Sarai Juarez MD 10/29/2014 [facility] Sarai Juarez MD
--- OUTSIDE RECORDS SUMMARY | 2021-05-19 11:06 | XMS REPORT ---
Author Anneliese Oro Organization [facility] Address [address] [place], [place] [address] Care Team Providers Care Applications Engineer Manufacturing Name Role Phone Diane Osuna PCP Allergies [...] 4 times per day for 30 days Name Start Date Expiration Date SIG [...] disease) Active Essential Hypertension Active History of [place] (myocardial infarction) Active Pedal edema Active Situational anxiety Active PVD (peripheral vascular disease) Active Dysthymic syndrome Active Plaque psoriasis Active Situational depression Active Lower extremity venous stasis Active Atrial Fibrillation Active Mixed hyperlipidemia Active Chronic constipation Active GERD (gastroesophageal reflux disease) Active 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 MOD Moderna COVID-19 Vaccin e [id number] Intramuscular Left Upper Arm 07/21/2020 05/10/2020 207 Covid-19 08/18/2020 [employer] MOD Moderna COVID-19 Vaccin e [id number] Intramuscular Left Deltoid 08/18/2020 05/10/2020 207 Influenza 03/30/2021 [facility] FLUZONE-HIGH DOSE [id number] In tramuscular Left Deltoid 03/30/2021 01/13/2021 135 History of Past Illness Name Date of Onset Comments Essential Hypertension History of [place] (myocardial infarction) CAD (coronary artery disease) Pedal edema Situational anxiety PVD (peripheral vascular disease) Dysthymic syndrome Plaque psoriasis Situational depression Lower extremity venous stasis Atrial Fibrillation Mixed hyperlipidemia Chronic constipation GERD (gastroesophageal reflux disease) 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 Gait disturbance CVA, old, [...] Varicosities of leg Nov 14 2018 9:12AM 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 Nov 14 2018 [...] Hypertension Jul 04 2019 8:18AM History of [place] (myocardial infarction) Jul 04 2019 8:18AM Situational [...] 2020 12:14PM Anxiety May 19 2020 9:43AM USP (current) use 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 May 19 2020 [...] (peripheral artery disease) Sep 2020 10:13AM Hyperlipidemia Feb 20 2021 10:13AM Fatigue Sep 2020 10:13AM Vitamin D [...] 2021 11:45AM Cough May 17 2021 11:45AM Payers Insurance Name Company Name Plan Name Plan Number Policy Number Raj cy Group Number Start Date Medicare RHC Medicare RHC [id number] N/ A [facility] [id number] N/ A Medicare Part B Medicare Of [place] [id number] N/A Medicare Part A Medicare - Lab/Xray [id number] N/A History of Encounters Visit Date Visit Type Provider 05/17/2021 Office visit Diane Osuna SALES CORRESPONDENT 04/26/2021 Office visit Diane Osuna SALES CORRESPONDENT 03/30/2021 Office visit Diane Osuna SALES CORRESPONDENT 03/16/2021 Office visit Hanane Ojeda SALES CORRESPONDENT 03/14/2021 Office visit Hanane Ojeda SALES CORRESPONDENT 02/20/2021 Office visit Diane Osuna SALES CORRESPONDENT 01/25/2021 Office visit Diane Osuna SALES CORRESPONDENT 12/30/2020 Voided Diane Osuna SALES CORRESPONDENT 12/06/2020 Office visit Diane Osuna SALES CORRESPONDENT 11/29/2020 Office visit Diane A. Major SALES CORRESPONDENT 11/24/2020 [facility] Sarai Juarez MD 10/28/2020 Office visit Diane A. Major SALES CORRESPONDENT 10/06/2020 Office visit Diane A. Major SALES CORRESPONDENT 09/21/2020 Office visit Diane A. Major SALES CORRESPONDENT 08/18/2020 Nurse visit Hanane Ojeda SALES CORRESPONDENT 08/11/2020 Office visit Diane A. Major SALES CORRESPONDENT 08/10/2020 Nurse visit Jordana Silva APR N 07/21/2020 Nurse visit Hanane Ojeda SALES CORRESPONDENT 06/16/2020 Office visit Diane A. Major SALES CORRESPONDENT 06/16/2020 Voided Susana FLANAGAN RN 05/19/2020 Office visit Diane A. Major SALES CORRESPONDENT 03/24/2020 Office visit Diane A. Major SALES CORRESPONDENT 02/02/2020 Laboratory Susana FLANAGAN RN 11/03/2019 Laboratory Kathy FLANAGAN RN 09/18/2019 Office visit Diane A. Major SALES CORRESPONDENT 09/09/2019 Office visit Diane A. Major SALES CORRESPONDENT 09/07/2019 [facility] Sarai Juarez MD 09/07/2019 [facility] Anthony Harley MD 07/20/2019 Office visit Diane A. Major SALES CORRESPONDENT 07/04/2019 Office visit Hanane Ojeda SALES CORRESPONDENT 06/12/2019 Office visit Diane A. Major SALES CORRESPONDENT 03/30/2019 Office visit Diane A. Major SALES CORRESPONDENT 02/16/2019 Office visit Diane A. Major SALES CORRESPONDENT 02/02/2019 Office visit Diane A. Major SALES CORRESPONDENT 11/14/2018 Office visit Diane A. Major SALES CORRESPONDENT 09/09/2018 Office visit Diane A. Major SALES CORRESPONDENT 10/23/2017 [facility] Sarai Juarez MD 05/07/2017 [facility] Sarai Juarez MD 11/22/2016 [facility] Anthony Harley MD 11/01/2016 [facility] Anthony Harley MD 11/01/2016 [facility] Sarai Juarez MD 10/29/2016 [facility] Sarai Juarez MD 10/24/2016 [facility] Sarai Juarez MD 05/31/2016 [facility] Emerson Siddiqui MD 05/31/2016 [facility] Otoniel DO 05/30/2016 [facility] Emerson Siddiqui MD 05/29/2016 [facility] DO 05/29/2016 [facility] Sarai Juarez MD 05/13/2015 [facility] Sarai Juarez MD 10/29/2014 [facility] Sarai Juarez MD
--- OUTSIDE RECORDS SUMMARY | 2021-05-19 11:06 | XMS REPORT ---
Author Anneliese Oro Organization [facility] Address [address] [place], [place] [address] Care Team Providers Care Clinical Nursing Coordinator Name Role Phone Diane Osuna PCP Allergies [...] disease) Active Essential Hypertension Active History of [place] (myocardial infarction) Active Pedal edema Active Situational anxiety Active PVD (peripheral vascular disease) Active Dysthymic syndrome Active Plaque psoriasis Active Situational depression Active Lower extremity venous stasis Active Atrial Fibrillation Active Mixed hyperlipidemia Active Chronic constipation Active GERD (gastroesophageal reflux disease) Active [facility] use 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 Active Gait disturbance Active [...] Results 10/06/2020 9:28 AM Clarity Ur cloudy Urine-[place] r straw yellow Glucose Ur-sCnc neg Bilirub [...] Upper Arm 03/30/2019 06/10/2021 115 Covid-19 07/21/2020 [employer] MOD Moderna COVID-19 Vaccin e [id number] Intramuscular Left Upper Arm 07/21/2020 05/10/2020 207 Covid-19 08/18/2020 Moderna [employer] MOD Moderna COVID-19 Vaccin e [id number] Intramuscular Left Deltoid 08/18/2020 05/10/2020 207 Influenza 03/30/2021 [employer] FLUZONE-HIGH DOSE [id number] In tramuscular Left Deltoid 03/30/2021 01/13/2021 135 History of Past Illness Name Date of Onset Comments Essential Hypertension History of [place] (myocardial infarction) CAD (coronary artery disease) Pedal edema Situational anxiety PVD (peripheral vascular disease) Dysthymic syndrome Plaque psoriasis Situational depression Lower extremity venous stasis Atrial Fibrillation Mixed hyperlipidemia Chronic constipation GERD (gastroesophageal reflux disease) 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 use 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 [id number] N/ A Medicare Part B Medicare Of [place] [id number] N/A Medicare Part A Medicare - Lab/Xray [id number] N/A History of Encounters Visit Date Visit Type Provider 04/26/2021 Office visit Diane ANathalia Major PSYCHOLOGIST EXPERIMENTAL 03/30/2021 Office visit Diane ANathalia Major PSYCHOLOGIST EXPERIMENTAL 03/16/2021 Office visit Hanane Ojeda PSYCHOLOGIST EXPERIMENTAL 03/14/2021 Office visit Hanane Ojeda PSYCHOLOGIST EXPERIMENTAL 02/20/2021 Office visit Diane ANathalia Major PSYCHOLOGIST EXPERIMENTAL 01/25/2021 Office visit Diane A. Major PSYCHOLOGIST EXPERIMENTAL 12/30/2020 Voided Diane A. Major PSYCHOLOGIST EXPERIMENTAL 12/06/2020 Office visit Diane A. Major PSYCHOLOGIST EXPERIMENTAL 11/29/2020 Office visit Diane A. Major PSYCHOLOGIST EXPERIMENTAL 11/24/2020 [facility] Sarai Juarez MD 10/28/2020 Office visit Diane A. Major PSYCHOLOGIST EXPERIMENTAL 10/06/2020 Office visit Diane ANathalia Major PSYCHOLOGIST EXPERIMENTAL 09/21/2020 Office visit Diane ANathalia Major PSYCHOLOGIST EXPERIMENTAL 08/18/2020 Nurse visit Hanane Ojeda PSYCHOLOGIST EXPERIMENTAL 08/11/2020 Office visit Diane ANathalia Major PSYCHOLOGIST EXPERIMENTAL 08/10/2020 Nurse visit Jordana Silva APR N 07/21/2020 Nurse visit Hanane Ojeda PSYCHOLOGIST EXPERIMENTAL 06/16/2020 Office visit Diane ANathalia Major PSYCHOLOGIST EXPERIMENTAL 06/16/2020 Voided Susana FLANAGAN RN 05/19/2020 Office visit Diane ANathalia Osuna PSYCHOLOGIST EXPERIMENTAL 03/24/2020 Office visit Diane ANathalia Major PSYCHOLOGIST EXPERIMENTAL 02/02/2020 Laboratory Susana FLANAGAN RN 11/03/2019 Laboratory Kathy FLANAGAN RN 09/18/2019 Office visit Diane ANathalia Major PSYCHOLOGIST EXPERIMENTAL 09/09/2019 Office visit Diane A. Major PSYCHOLOGIST EXPERIMENTAL 09/07/2019 [facility] Sarai Juarez MD 09/07/2019 [facility] Anthony Harley MD 07/20/2019 Office visit Diane A. Major PSYCHOLOGIST EXPERIMENTAL 07/04/2019 Office visit Hanane Ojeda PSYCHOLOGIST EXPERIMENTAL 06/12/2019 Office visit Diane A. Major PSYCHOLOGIST EXPERIMENTAL 03/30/2019 Office visit Diane A. Major PSYCHOLOGIST EXPERIMENTAL 02/16/2019 Office visit Diane A. Major PSYCHOLOGIST EXPERIMENTAL 02/02/2019 Office visit Diane A. Major PSYCHOLOGIST EXPERIMENTAL 11/14/2018 Office visit Diane A. Major PSYCHOLOGIST EXPERIMENTAL 09/09/2018 Office visit Diane A. Major PSYCHOLOGIST EXPERIMENTAL 10/23/2017 [facility] Sarai Juarez MD 05/07/2017 [facility] Sarai Juarez MD 11/22/2016 [facility] Anthony Harley MD 11/01/2016 [facility] Anthony Harley MD 11/01/2016 [facility] Sarai Juarez MD 10/29/2016 [facility] Sarai Juarez MD 10/24/2016 [facility] Sarai Juarez MD 05/31/2016 [facility] Emerson Siddiqui MD 05/31/2016 [facility] Maynor Frederick DO 05/30/2016 [facility] Emerson Siddiqui MD 05/29/2016 [facility] Otoniel DO 05/29/2016 [facility] Sarai Juarez MD 05/13/2015 [facility] Sarai Juarez MD 10/29/2014 [facility] Sarai Juarez MD
--- OUTSIDE RECORDS SUMMARY | 2021-05-19 11:06 | XMS REPORT ---
Author Anneliese Oro Organization [facility] Address [address] [place], [place] [id number] Care Team Providers Care Resistance Welding Machine Operator Name Role Phone Diane Osuna PCP Allergies [...] digital with avery 01/23/2021 1 2:00 AM CBC W/ AUTO DIFF (RFLX MAN DIFF IF IND). 03/15/2021 12:00 AM KIARA W/REFLEX 03/15/2021 12:00 AM RA FACTOR 03/15/2021 12:00 AM Tick-borne disease panel 03/15/2021 12:00 AM Tick-borne disease panel 03/15/2021 12:00 AM Tick-borne disease panel 03/15/2021 12:00 AM VITAMIN B12 03/15/2021 12:00 AM VITAMIN D (25 HYDROXY) 03/15/2021 12:00 AM CRP 03/15/2021 12:00 AM IRON PANEL 03/15/2021 12:00 AM IRON PANEL 03/15/2021 12:00 AM IRON PANEL 03/15/2021 12:00 AM HLA B 27 03/15/2021 12:00 AM Medications Active Name Start Date Estimated [...] ONE/HALF TA BLET BY MOUTH TWICE DAILY omeprazole 20 mg oral capsule,delayed release(DR/EC) 06/09/2020 06/04/2021 TAKE 1 CAPSULE BY MOUTH DAILY amiodarone oral tablet 200 mg 12/06/2020 [...] oral route once daily for 90 days Name Start Date Expiration Date SIG [...] disease) Active Essential Hypertension Active History of SC (myocardial infarction) Active Pedal edema Active Situational anxiety Active PVD (peripheral vascular disease) Active Dysthymic syndrome Active Plaque psoriasis Active Situational depression Active Lower extremity venous stasis Active Atrial Fibrillation Active Mixed hyperlipidemia Active Chronic constipation Active GERD (gastroesophageal reflux disease) Active nursing home use 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 Active Gait disturbance Active [...] HC BMI BSA BMI Percentile O2 Sat(%) 03/30/2021 9:17:00 AM 150 mm[Hg] 68 mm[Hg] 63 {beats}/min 20 rpm 97.2 F 197 lbs 67 in 30.8542 kg/m2 2.0553 m2 98 % 03/16/2021 8:51:00 AM 156 mm[Hg] 78 mm[Hg] 68 {beats}/min 20 rpm 97.3 F 196.312 lbs 67 in 30.75 kg/m2 2.05 m2 95 % 03/14/2021 9:12:00 AM 154 mm[Hg] 74 mm[Hg] 72 {beats}/min 18 rpm 97.3 F 196.312 lbs 67 in 30.7466 kg/m2 2.0517 m2 96 % 02/20/2021 9:19:00 AM 116 mm[Hg] 60 mm[Hg] 65 {beats}/min 18 rpm 97.9 F 67 in 95 % 01/25/2021 9:51:00 AM 128 mm[Hg] 80 mm[Hg] 101 {beats}/min 18 rpm 97.9 F 204 lbs 67 in 31.9506 kg/m2 2.0915 m2 97 % 12/06/2020 9:37:00 AM 140 mm[Hg] 60 mm[Hg] 57 {beats}/min 16 rpm 97.9 F 210 lbs 67 in 32.8903 kg/m2 2.12 m2 96 % 11/29/2020 9:16:00 [...] 12:00 AM TRIM NAIL(S) ANY NUMBER Reviewed Results Summary Date and Description Results 10/06/2020 9:28 AM Clarity Ur cloudy Urine-Blackey r straw yellow Glucose Ur-sCnc neg Bilirub [...] Upper Arm 03/30/2019 06/10/2021 115 Covid-19 07/21/2020 [employer] MOD Moderna COVID-19 Vaccin e [id number] Intramuscular Left Upper Arm 07/21/2020 05/10/2020 207 Covid-19 08/18/2020 [employer] 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 Nov 14 2018 [...] Hypertension Jul 04 2019 8:18AM History of SC (myocardial infarction) Jul 04 2019 8:18AM Situational [...] 2020 12:14PM Anxiety May 19 2020 9:43AM 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) use 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 May 19 2020 [...] of both hips Mar 30 2021 9:17AM Payers Insurance Name Company Name Plan Name Plan Number Policy Number Raj cy Group Number Start Date Medicare [facility] Medicare [facility] [id number] N/ A BCBS Bcbs [facility] [id number] N/ A Medicare Part B Medicare Of [place] [id number] N/A Medicare Part A Medicare - Lab/Xray [id number] N/A History of Encounters Visit Date Visit Type Provider 03/30/2021 Office visit Diane Osuna ZINC PLATING MACHINE OPERATOR 03/16/2021 Office visit Hanane Ojeda ZINC PLATING MACHINE OPERATOR 03/14/2021 Office visit Hanane Ojeda ZINC PLATING MACHINE OPERATOR 02/20/2021 Office visit Diane A. Major ZINC PLATING MACHINE OPERATOR 01/25/2021 Office visit Diane A. Major ZINC PLATING MACHINE OPERATOR 12/30/2020 Voided Diane A. Major ZINC PLATING MACHINE OPERATOR 12/06/2020 Office visit Diane A. Major ZINC PLATING MACHINE OPERATOR 11/29/2020 Office visit Diane A. Major ZINC PLATING MACHINE OPERATOR 11/24/2020 [facility] Sarai Juarez MD 10/28/2020 Office visit Diane A. Major ZINC PLATING MACHINE OPERATOR 10/06/2020 Office visit Diane A. Major ZINC PLATING MACHINE OPERATOR 09/21/2020 Office visit Diane A. Major ZINC PLATING MACHINE OPERATOR 08/18/2020 Nurse visit Hanane Ojeda ZINC PLATING MACHINE OPERATOR 08/11/2020 Office visit Diane ANathalia Major ZINC PLATING MACHINE OPERATOR 08/10/2020 Nurse visit Jordana Silva APR N 07/21/2020 Nurse visit Hanane Ojeda ZINC PLATING MACHINE OPERATOR 06/16/2020 Office visit Diane A. Major ZINC PLATING MACHINE OPERATOR 06/16/2020 Voided Susana FLANAGAN RN 05/19/2020 Office visit Diane A. Major ZINC PLATING MACHINE OPERATOR 03/24/2020 Office visit Diane A. Major ZINC PLATING MACHINE OPERATOR 02/02/2020 Laboratory Susana FLANAGAN RN 11/03/2019 Laboratory Kathy FLANAGAN RN 09/18/2019 Office visit Diane A. Major ZINC PLATING MACHINE OPERATOR 09/09/2019 Office visit Diane A. Major ZINC PLATING MACHINE OPERATOR 09/07/2019 [facility] Sarai Juraez MD 09/07/2019 [facility] Anthony Harley MD 07/20/2019 Office visit Diane A. Major ZINC PLATING MACHINE OPERATOR 07/04/2019 Office visit Hanane Ojeda ZINC PLATING MACHINE OPERATOR 06/12/2019 Office visit Diane A. Major ZINC PLATING MACHINE OPERATOR 03/30/2019 Office visit Diane A. Major ZINC PLATING MACHINE OPERATOR 02/16/2019 Office visit Diane A. Major ZINC PLATING MACHINE OPERATOR 02/02/2019 Office visit Diane A. Major ZINC PLATING MACHINE OPERATOR 11/14/2018 Office visit Diane A. Major ZINC PLATING MACHINE OPERATOR 09/09/2018 Office visit Diane A. Major ZINC PLATING MACHINE OPERATOR 10/23/2017 [facility] Sarai Juarez MD 05/07/2017 [facility] Sarai Juarez MD 11/22/2016 [facility] Anthony Harley MD 11/01/2016 [facility] Anthony Harley MD 11/01/2016 [facility] Sarai Juarez MD 10/29/2016 [facility] Sarai Juarez MD 10/24/2016 [facility] Sarai Juarez MD 05/31/2016 [facility] Emerson Siddiqui MD 05/31/2016 [facility] 05/30/2016 [facility]29[facility] Sarai Juarez MD 05/13/2015 [facility] Sarai Juarez MD 10/29/2014 [facility] Sarai Juarez MD
--- OUTSIDE RECORDS SUMMARY | 2021-05-19 11:06 | XMS REPORT ---
Author Anneliese Oro Organization [facility] Address [address] [place], [place] [id number] Care Team Providers Care Clip And Hanger Attacher Name Role Phone Diane Osuna PCP Allergies [...] disease) Active Essential Hypertension Active History of UT (myocardial infarction) Active Pedal edema Active Situational anxiety Active PVD (peripheral vascular disease) Active Dysthymic syndrome Active Plaque psoriasis Active Situational depression Active Lower extremity venous stasis Active Atrial Fibrillation Active Mixed hyperlipidemia Active Chronic constipation Active GERD (gastroesophageal reflux disease) Active skilled nursing use 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 Active Gait disturbance Active [...] Results 10/06/2020 9:28 AM Clarity Ur cloudy Urine-Eckerty r straw yellow Glucose Ur-sCnc neg Bilirub [...] Arm 03/30/2019 06/10/2021 115 Covid-19 07/21/2020 [employer] MOD Moderna COVID-19 Vaccin e [id number] Intramuscular Left Upper Arm 07/21/2020 05/10/2020 207 Covid-19 08/18/2020 [employer] MOD Moderna COVID-19 Vaccin e [id number] Intramuscular Left Deltoid 08/18/2020 05/10/2020 207 Influenza 03/30/2021 sanofi [facility] FLUZONE-HIGH DOSE [id number] In tramuscular Left Deltoid 03/30/2021 01/13/2021 135 History of Past Illness Name Date of Onset Comments Essential Hypertension History of UT (myocardial infarction) CAD (coronary artery disease) Pedal edema Situational anxiety PVD (peripheral vascular disease) Dysthymic syndrome Plaque psoriasis Situational depression Lower extremity venous stasis Atrial Fibrillation Mixed hyperlipidemia Chronic constipation GERD (gastroesophageal reflux disease) skilled nursing use 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 Gait disturbance CVA, old, [...] Varicosities of leg 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 Nov 14 2018 [...] Hypertension Jul 04 2019 8:18AM History of UT (myocardial infarction) Jul 04 2019 8:18AM Situational [...] 2020 12:14PM Anxiety May 19 2020 9:43AM skilled nursing (current) use 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 May 19 2020 [...] Number Start Date Medicare RHC Medicare RHC [id number] N/ A [id number] N/ A Medicare Part B Medicare Of [place] [id number] N/A Medicare Part A Medicare - Lab/Xray [id number] N/A History of Encounters Visit Date Visit Type Provider 03/30/2021 Office visit Diane ANathalia Osuna TEA TREE FARM WORKER 03/16/2021 Office visit Hanane Ojeda TEA TREE FARM WORKER 03/14/2021 Office visit Hanane Ojeda TEA TREE FARM WORKER 02/20/2021 Office visit Diane ANathalia Major TEA TREE FARM WORKER 01/25/2021 Office visit Diane ANathalia Major TEA TREE FARM WORKER 12/30/2020 Voided Diane ANathalia Major TEA TREE FARM WORKER 12/06/2020 Office visit Diane ANathalia Major TEA TREE FARM WORKER 11/29/2020 Office visit Diane ANathalia Major TEA TREE FARM WORKER 11/24/2020 [facility] Sarai Juarez MD 10/28/2020 Office visit Diaen ANathalia Major TEA TREE FARM WORKER 10/06/2020 Office visit Diane ANathalia Major TEA TREE FARM WORKER 09/21/2020 Office visit Diane ANathalia Major TEA TREE FARM WORKER 08/18/2020 Nurse visit Hanane Ojeda TEA TREE FARM WORKER 08/11/2020 Office visit Diane ANathalia Major TEA TREE FARM WORKER 08/10/2020 Nurse visit Jordana Silva APR N 07/21/2020 Nurse visit Hanane Ojeda TEA TREE FARM WORKER 06/16/2020 Office visit Diane Osuna TEA TREE FARM WORKER 06/16/2020 Voided Susana FLANAGAN RN 05/19/2020 Office visit Diane A. Major TEA TREE FARM WORKER 03/24/2020 Office visit Diane A. Major TEA TREE FARM WORKER 02/02/2020 Laboratory Susana Castañeda AP RN 11/03/2019 Laboratory Kathy Salamanca AP RN 09/18/2019 Office visit Diane A. Major TEA TREE FARM WORKER 09/09/2019 Office visit Diane A. Major TEA TREE FARM WORKER 09/07/2019 Hospital Sarai Juarez MD 09/07/2019 [facility] Anthony Harley MD 07/20/2019 Office visit Diane A. Major TEA TREE FARM WORKER 07/04/2019 Office visit Hanane Ojeda TEA TREE FARM WORKER 06/12/2019 Office visit Diane A. Major TEA TREE FARM WORKER 03/30/2019 Office visit Diane A. Major TEA TREE FARM WORKER 02/16/2019 Office visit Diane A. Major TEA TREE FARM WORKER 02/02/2019 Office visit Diane A. Major TEA TREE FARM WORKER 11/14/2018 Office visit Diane A. Major TEA TREE FARM WORKER 09/09/2018 Office visit Diane A. Major TEA TREE FARM WORKER 10/23/2017 Hospital Sarai Juarez MD 05/07/2017 [facility] Sarai Juarez MD 11/22/2016 [facility] Anthony Harley MD 11/01/2016 [facility] Anthony Harley MD 11/01/2016 [facility] Sarai Juarez MD 10/29/2016 [facility] Sarai Juarez MD 10/24/2016 [facility] Sarai Juarez MD 05/31/2016 [facility] 05/31/[facility] Emerson Siddiqui MD 05/29/[facility] Sarai Juarez MD 05/13/2015 [facility] Sarai Juarez MD 10/29/2014 Hospital Sarai Juarez MD
[2021-05-19] MEDS: dilTIAZem DRIP PRE-MIX 125 ML IV SCH ×2 (11:14→18:33)
[2021-05-19] MEDS ORDERED: CEFEPIME INJECTION 1,000 MG in NS (IVPB) 50 ML IV SCH (11:30)
[2021-05-19 12:05] LABS: BASOPHILS % (AUTO) 0 % (0-10); EOSINOPHILS % (AUTO) 0 % (0-10); HEMATOCRIT 36 % (35-52); HEMOGLOBIN 11.7 g/dL (11.5-16.0); LYMPHOCYTES # (AUTO) 0.4 10^3/uL (1.0-4.0); LYMPHOCYTES % (AUTO) 3 % (12-44); MEAN CORPUSCULAR HEMOGLOBIN 31 pg (25-34); MEAN CORPUSCULAR HGB CONC 33 g/dL (32-36); MEAN CORPUSCULAR VOLUME 93 fL (80-99); MEAN PLATELET VOLUME 8.6 fL (9.0-12.2); MONOCYTES # (AUTO) 0.9 10^3/uL (0.0-1.0); MONOCYTES % (AUTO) 7 % (0-12); NEUTROPHILS # (AUTO) 12.6 10^3/uL (1.8-7.8); NEUTROPHILS % (AUTO) 89 % (42-75); PLATELET COUNT 280 10^3/uL (130-400); WHITE BLOOD COUNT 14.2 10^3/uL (4.3-11.0)
[2021-05-19] MEDS: NS IV 1000 ML 1,000 ML IV SCH (12:06)
[2021-05-19] MEDS: AZITHROMYCIN INJECTION 500 MG in NS (IVPB) 250 ML IV SCH (12:06)
[2021-05-19] MEDS: ALPRAZolam 0.25 MG (XANAX) TAB PO PRN (12:07)
[2021-05-19] MEDS: APIXABAN 5 MG (ELIQUIS) TABLET PO SCH ×2 (12:07→20:08)
[2021-05-19] MEDS: inSUlin ASPART (NovoLOG) 1 UNIT/0.01 ML (CHARGE PER UNIT) SC SCH ×3 (12:08→21:13)
[2021-05-19] MEDS: SENNA W/DOCUSATE (SENOKOT S) TABLET PO SCH ×2 (12:09→20:13)
[2021-05-19 12:22] LABS: ALBUMIN 3.2 GM/DL (3.2-4.5); BILIRUBIN,TOTAL 0.5 MG/DL (0.1-1.0); CREATININE SERUM 0.78 MG/DL (0.60-1.30); POTASSIUM 4.2 MMOL/L (3.6-5.0); TOTAL PROTEIN 7.3 GM/DL (6.4-8.2)
[2021-05-19 12:41] LABS: ANISOCYTOSIS SLIGHT; BAND NEUTROPHILS 2 %; BASOPHILS % (MANUAL) 0 %; EOSINOPHILS % (MANUAL) 0 %; LYMPHOCYTES % (MANUAL) 5 %; MONOCYTES % (MANUAL) 5 %; NEUTROPHILS % (MANUAL) 88 %
--- NOTE | 2021-05-19 13:07 | Tele-ICU Consult ---
History of Present Illness History of Present Illness Date Seen by Provider: May 19, 2021 Time Seen by Provider: 13:01 Date of Admission 05/19/21 History of Present Illness She is a 80-year-old female with past medical history of hypertension and chronic atrial fibrillation on oral anticoagulant therapy apparently was diagnosed with to have a Covid19 pneumonia about 10-12 days ago and being treated at home. Reportedly she was vaccinated. However her shortness of breath is worsening hence she was taken to the emergency room at [facility] where she was found to have a hypoxia requiring oxygen with Vapotherm also atrial fibrillation with rapid ventricular rate requiring Cardizem drip. She is transferred to this institution for ICU management. Primary care physician call ed me and gave me some details about this patient. I have made a video visit and interview of the patient with telemetry ICU camera and also discussed with the ACCOUNT ADMINISTRATOR. She denies any history of fever but reportedly patient has a mild dementia and story is somewhat unreliable from the patient. Currently she is a full code per patient's daughter. Further details of her history and medications are inviting. Chest x-ray and other labs are awaiting also. Allergies and Home Medications Allergies Coded Allergies: Sksqicz-SXX-[id number] Reductase Inhibitor (Verified Allergy, Unknown, 05/19/21) bacitracin (Verified Allergy, Unknown, 05/19/21) hydrogen peroxide (Verified Allergy, Unknown, 05/19/21) iodine (Verified Allergy, Unknown, 05/19/21) lidocaine (Verified Allergy, Unknown, 05/19/21) neomycin (Verified Allergy, Unknown, 05/19/21) polymyxin B (Verified Allergy, Unknown, 05/19/21) Past Medical/Social/Family Hx Patient Social History Tobacco Use?: No Smoking Status: Never a Smoker Smokeless Tobacco Frequency: Never a User Use of E-Cig and/or Vaping dev: No E-Cig and/or Vaping Freq: Never a User Substance use?: No Alcohol Use?: No Pt stated abuse/neglect: No Immunizations Up To Date Influenza Vaccine Up-to-Date: Yes; Up-to-Date First/Initial COVID19 Vaccinat: SEP 28 Second COVID19 Vaccination Jun: OCTOBER 28 Tetanus Booster (TDap): Unknown Hepatitis A: No Hepatitis B: No TB Skin Test: None Current Status status: No status: No Advance Directives: No Communicates: Verbally Primary Language: Liberian Preferred Spoken Language: Liberian Is interpretation needed?: No Implanted or Applied Medical D: Stents Review of Systems Constitutional: see HPI Other ros per rn Sepsis Event Evaluation Height, Weight, BMI Height: '" Weight: lbs. oz. kg; 33.46 BMI Method: Exam Exam Patient acknowledged, consented, and participated in this virtual visit which was conducted using real time audio/video Vital Signs Date Time Temp Pulse Resp B/P (MAP) Pulse Ox O2 Delivery O2 Flow Rate FiO2 05/19/21 12:45 111 05/19/21 11:42 36.3 05/19/21 11:00 123 05/19/21 10:45 36.3 126 22 126/85 95 Vapotherm 20.00 35.00 Height & Weight Height: '" Weight: lbs. oz. kg; 33.46 BMI Method: General Appearance: Chronically ill Capillary Refill: Less Than 3 Seconds Other comments pe per rn Results Lab Laboratory Tests 05/19/21 11:50 Meds reviewed Radiology awaiting cxr Assessment/Plan Assessment/Plan 1. Covid-19 viral pneumonia 2.Hypoxic acute respiratory failure. 3.Afib. with RVR 4.History of hypertension 5. ? hx of dementia Recommendations 1. IV dexamethasone 2. Vapotherm for oxygenation and wean o2 as tolerated 3.monitor blood sugars and keep between 100-200 with ISS 4. check cxr and ECHO 5. OAC for stroke prophylaxis and dvt prophylaxis Critical Care: Critically Ill Patient Time spent with patient (mins): 45 ERNIE LAWS MD May 19, 2021 13:07
--- NOTE | 2021-05-19 13:43 | Consultation-Cardiology ---
HPI-Cardiology Cardiology Consultation Date of Consultation 05/19/21 Date of Admission Time Seen by Provider: 13:40 Indication: Atrial fibrillation HPI 80 years old lady with history of paroxysmal atrial fibrillation, coronary artery disease, hypertension, she was diagnosed with COVID-19 pneumonia recently and was treated at home then at [facility]. She was noted to be in atrial fibrillation with rapid ventricular response started on Cardizem drip, has been maintained on Vapotherm. She was transferred to [facility]. Home Medications & Allergies Allergies: Coded Allergies: Vcbosgf-[id number] Reductase Inhibitor (Verified Allergy, Unknown, 05/19/21) bacitracin (Verified Allergy, Unknown, 05/19/21) hydrogen peroxide (Verified Allergy, Unknown, 05/19/21) iodine (Verified Allergy, Unknown, 05/19/21) lidocaine (Verified Allergy, Unknown, 05/19/21) neomycin (Verified Allergy, Unknown, 05/19/21) polymyxin B (Verified Allergy, Unknown, 05/19/21) Home Medication List Reviewed: Yes [id number]-Jjrnba Hx Patient Social History Smoking Status: Never a Smoker Have you traveled recently?: No Alcohol Use?: No Past Medical History Coronary artery disease Paroxysmal atrial fibrillation Hypertension Family Medical History Family Medical Hx Noncontributory Review of Systems-General Review of Systems Constitutional: see HPI, malaise Respiratory: see HPI, dyspnea on exertion Cardiovascular: see HPI Gastrointestinal: see HPI Genitourinary: see HPI Reviewed Test Results Reviewed Test Results Lab Laboratory Tests Test 05/19/21 11:17 05/19/21 11:50 Range/Units Glucometer 227 H 70-110 MG/DL White Blood Count 14.2 H 4.3-11.0 10^3/uL Red Blood Count 3.82 3.80-5.11 10^6/uL Hemoglobin 11.7 11.5-16.0 g/dL Hematocrit 36 35-52 % Mean Corpuscular Volume 93 80-99 fL Mean Corpuscular Hemoglobin 31 25-34 pg Mean Corpuscular Hemoglobin Concent 33 32-36 g/dL Red Cell Distribution Width 15.6 H 10.0-14.5 % Platelet Count 280 130-400 10^3/uL Mean Platelet Volume 8.6 L 9.0-12.2 fL Immature Granulocyte % (Auto) 1 % Neutrophils (%) (Auto) 89 H 42-75 % Lymphocytes (%) (Auto) 3 L 12-44 % Monocytes (%) (Auto) 7 0-12 % Eosinophils (%) (Auto) 0 0-10 % Basophils (%) (Auto) 0 0-10 % Neutrophils # (Auto) 12.6 H 1.8-7.8 10^3/uL Lymphocytes # (Auto) 0.4 L 1.0-4.0 10^3/uL Monocytes # (Auto) 0.9 0.0-1.0 10^3/uL Eosinophils # (Auto) 0.0 0.0-0.3 10^3/uL Basophils # (Auto) 0.0 0.0-0.1 10^3/uL Immature Granulocyte # (Auto) 0.2 H 0.0-0.1 10^3/uL Neutrophils % (Manual) 88 % Lymphocytes % (Manual) 5 % Monocytes % (Manual) 5 % Eosinophils % (Manual) 0 % Basophils % (Manual) 0 % Band Neutrophils 2 % Anisocytosis SLIGHT Sodium Level 127 L 135-145 MMOL/L Potassium Level 4.2 3.6-5.0 MMOL/L Chloride Level 93 L 98-107 MMOL/L Carbon Dioxide Level 22 21-32 MMOL/L Anion Gap 12 5-14 MMOL/L Blood Urea Nitrogen 19 H 7-18 MG/DL Creatinine 0.78 0.60-1.30 MG/DL Estimat Glomerular Filtration Rate 71 BUN/Creatinine Ratio 24 Glucose Level 228 H 70-105 MG/DL Calcium Level 9.0 8.5-10.1 MG/DL Corrected Calcium 9.6 8.5-10.1 MG/DL Total Bilirubin 0.5 0.1-1.0 MG/DL Aspartate Amino Transf (AST/SGOT) 31 5-34 U/L Alanine Aminotransferase (ALT/SGPT) 46 0-55 U/L Alkaline Phosphatase 67 40-136 U/L Total Protein 7.3 6.4-8.2 GM/DL Albumin 3.2 3.2-4.5 GM/DL Physical Exam Physical Exam Vital Signs Vital Signs - First Documented 05/19/21 10:45 Temp 36.3 Pulse 126 Resp 22 B/P (MAP) 126/85 Pulse Ox 95 O2 Delivery Vapotherm O2 Flow Rate 20.00 35.00 FiO2 35 Capillary Refill : Less Than 3 Seconds Height, Weight, BMI Height: '" Weight: lbs. oz. kg; 33.46 BMI Method: General Appearance: No Apparent Distress, Chronically ill Cardiovascular: Irregularly Irregular, Tachycardia A/P-Cardiology Admission Diagnosis Paroxysmal atrial fibrillation Tachycardia Acute respiratory insufficiency COVID-19 pneumonia Assessment/Plan Paroxysmal atrial fibrillation, currently in atrial fibrillation with a ventricular response, started on Cardizem drip, being titrated upward, I gave her additional bolus of Cardizem and will monitor her tolerance and response. Maintained on Eliquis as an outpatient which was continued during this admission Coronary artery disease, reporting history of multiple stents in the past, clinically stable at this time. Continue to monitor Hypertension, currently borderline hypotensive, monitor blood pressure COVID-19 pneumonia, acute respiratory insufficiency, maintained on Vapotherm, managed by primary care team. Diabetes mellitus, followed and managed by primary care physician MAO WRIGHT MD May 19, 2021 13:43
[2021-05-19] MEDS: RT-ALBUTEROL HFA 8.5 GM INHALER IH SCH ×3 (13:56→21:33)
--- NOTE | 2021-05-19 14:31 | Diagnostic Imaging Report ---
INDICATION: Low oxygen saturation. TIME OF EXAM: 1:55 PM No prior studies are available for comparison. The heart is enlarged. There is central congestion. Appears to be some mild right perihilar infiltrate present. No effusion or pneumothorax is identified. IMPRESSION: Cardiomegaly and central congestion with moderate perihilar infiltrate. Dictated by: Dictated on workstation # [id number]
[2021-05-19] MEDS ORDERED: APIX2.5T PO (15:31)
[2021-05-19] MEDS ORDERED: GUSE100S SQ (15:31)
[2021-05-19] MEDS ORDERED: FURO20TA4 PO (15:31)
[2021-05-19] MEDS ORDERED: SERT-412 PO (15:31)
[2021-05-19] MEDS ORDERED: AMLO-250 PO (15:31)
[2021-05-19] MEDS ORDERED: AMIO200T65 PO (15:31)
[2021-05-19] MEDS ORDERED: LOSA50TA63 PO (15:31)
[2021-05-19] MEDS ORDERED: OMEP20CA18 PO (15:31)
[2021-05-19] MEDS ORDERED: HYDR50TA6 PO (15:31)
[2021-05-19] MEDS ORDERED: PSYL3.4P5 PO (15:31)
[2021-05-19] MEDS ORDERED: ROSU20TA32 PO (15:31)
[2021-05-19] MEDS ORDERED: SERTRALINE 50 MG (ZOLOFT) TABLET PO NR (16:00)
--- NOTE | 2021-05-19 16:57 | History & Physical ---
OTIS LEÓN 05/19/21 8827: History of Present Illness History of Present Illness Reason for visit/HPI Patient is an 80 year old female that presents to [facility] from [facility] ICU with a diagnosis of COVID pneumonia. This was diagnosed 10-12 days ago and was initially treated at home. Patient had worsening symptoms and went to the ER at [facility] where she was found to have hypoxia that required oxygen with vapotherm. Patient was also found to atrial fibrillation with RVR that required cardizem drip. Her status continued to decline and patient was transferred to [facility] ICU for management. Patient suffers from dementia and is a poor historian. Patient is COVID vaccinated. Patient has a medical history of hypertension and chronic atrial fibrillation. Patient is on oral anticoagulation therapy. . Date of Admission May 19, 2021 at 10:43 Date Seen by a Provider: May 19, 2021 Time Seen by a Provider: 12:30 I consulted on this patient on 05/19/21 16:51 Attending Physician Tiffanie Pham DO Admitting Physician Consult Allergies and Home Medications Allergies Coded Allergies: Hbtpldp-LMN-YzI Reductase Inhibitor (Verified Allergy, Unknown, 05/19/21) bacitracin (Verified Allergy, Unknown, 05/19/21) hydrogen peroxide (Verified Allergy, Unknown, 05/19/21) iodine (Verified Allergy, Unknown, 05/19/21) lidocaine (Verified Allergy, Unknown, 05/19/21) neomycin (Verified Allergy, Unknown, 05/19/21) polymyxin B (Verified Allergy, Unknown, 05/19/21) Patient Home Medication List Home Medication List Reviewed: Yes Amiodarone HCl (Amiodarone HCl) 200 Mg Tablet, 200 MG PO DAILY, (Reported) Entered as Reported by: NIURKA QUINONEZ on 05/19/211530 Last Action: Continued Amlodipine Besylate (Amlodipine Besylate) 5 Mg Tablet, 5 MG PO DAILY, (Reported) Entered as Reported by: NIURKA QUINONEZ on 05/19/211530 Last Action: Continued Apixaban (Eliquis) 2.5 Mg Tablet, 2.5 MG PO BID, (Reported) Entered as Reported by: NIURKA QUINONEZ on 05/19/211530 Last Action: Held Furosemide (Furosemide) 20 Mg Tablet, 20 MG PO DAILY, (Reported) Entered as Reported by: NIURKA QUINONEZ on 05/19/211530 Last Action: Continued Guselkumab (Tremfya) 100 Mg/1 Ml Syringe, 100 MG SQ, (Reported) Entered as Reported by: NIURKA QUINONEZ on 05/19/211530 Last Action: Held Hydrochlorothiazide (Hydrochlorothiazide) 50 Mg Tablet, 50 MG PO DAILY, (Reported) Entered as Reported by: NIURKA QUINONEZ on 05/19/211530 Last Action: Held Losartan Potassium (Losartan Potassium) 50 Mg Tablet, 50 MG PO DAILY, (Reported) Entered as Reported by: NIURKA QUINONEZ on 05/19/211530 Last Action: Continued Omeprazole (Omeprazole) 20 Mg Capsule.dr, 20 MG PO DAILY, (Reported) Entered as Reported by: NIURKA QUINONEZ on 05/19/211530 Last Action: Continued Psyllium Husk/Aspartame (Metamucil Fiber Singles Packet) 3.4 Gm Powd.pack, 3.4 GM PO, (Reported) Entered as Reported by: NIURKA QUINONEZ on 05/19/211530 Last Action: Continued Rosuvastatin Calcium (Rosuvastatin Calcium) 20 Mg Tablet, 20 MG PO DAILY, (Reported) Entered as Reported by: NIURKA QUINONEZ on 05/19/211530 Last Action: Continued Sertraline HCl (Sertraline HCl) 25 Mg Tablet, 25 MG PO DAILY, (Reported) Entered as Reported by: NIURKA QUINONEZ on 05/19/211530 Last Action: Converted Past Jtmchxc-Hvvohl-Wrozlr Hx Patient Social History Tobacco Use?: No Smoking Status: Never a Smoker Smokeless Tobacco Frequency: Never a User Use of E-Cig and/or Vaping dev: No Use of E-Cig and/or Vaping Archie: Never a User Substance use?: No Alcohol Use?: No Pt feels they are or have been: No Immunizations Up To Date First/Initial COVID19 Vaccinat: SEP 28 Second COVID19 Vaccination Jun: OCTOBER 28 Tetanus Booster (TDap): Unknown Hepatitis A: No Hepatitis B: No Current Status status: No status: No Advance Directives: No Communicates: Verbally Primary Language: Salvadorean Preferred Spoken Language: Salvadorean Is interpretation needed?: No Implanted or Applied Medical D: Stents Review of Systems Constitutional: see HPI Respiratory: see HPI Cardiovascular: see HPI Physical Exam Vital Signs Vital Signs - First Documented 05/19/21 10:45 Temp 36.3 Pulse 126 Resp 22 B/P (MAP) 126/85 Pulse Ox 95 O2 Delivery Vapotherm O2 Flow Rate 20.00 35.00 FiO2 35 Capillary Refill : Less Than 3 Seconds Height, Weight, BMI Height: '" Weight: lbs. oz. kg; 33.46 BMI Method: General Appearance: Chronically ill Assessment/Plan Assessment and Plan Assessment Covid-19 pneumonia Acute respiratory failure Afib. with RVR History of hypertension Dementia CAD Diabetes Mellitus Hyponatremia Hyperglycemia Plan IV dexamethasone Continue Vapotherm IV Insulin Continue oral anticoagulation Monitor glucose Repeat and monitor labs Consult cardiology Consult EICU Start home medications Monitor blood pressure Admission Diagnosis Covid Pneumonia Admission Status: Inpatient Order (span 2 midnights) Reason for Inpatient Admission: Covid Pneumonia TIFFANIE PHAM 05/20/21 0621: History of Present Illness History of Present Illness Reason for visit/HPI Chief complaint: Atrial fibrillation with rapid ventricular response and Covid positive pneumonia patient History of present illness: This is an 80-year-old white female who presented to ICU From [facility] due to need of higher level of care due to atrial fibrillation with rapid ventricular response. She has chronic atrial fibrillation and maintained on Eliquis. She is on day #12 of COVID-19 when she was admitted 2 days prior from [facility] due to diversion status there. She is fully vaccinated. Cardizem drip was started. Cardiology was notified and eICU. IV antibiotics maintained. She was able to tolerate BiPAP in short intervals and was maintained on Vapotherm at [facility]. Dementia was reported by daughter consistent with some of patient's statements Allergies and Home Medications Allergies Coded Allergies: Taaetaz-CIT-ElL Reductase Inhibitor (Verified Allergy, Unknown, 05/19/21) bacitracin (Verified Allergy, Unknown, 05/19/21) hydrogen peroxide (Verified Allergy, Unknown, 05/19/21) iodine (Verified Allergy, Unknown, 05/19/21) lidocaine (Verified Allergy, Unknown, 05/19/21) neomycin (Verified Allergy, Unknown, 05/19/21) polymyxin B (Verified Allergy, Unknown, 05/19/21) Patient Home Medication List Home Medication List Reviewed: Yes Amiodarone HCl (Amiodarone HCl) 200 Mg Tablet, 200 MG PO DAILY, (Reported) Entered as Reported by: NIURKA QUINONEZ on 05/19/211530 Last Action: Continued Amlodipine Besylate (Amlodipine Besylate) 5 Mg Tablet, 5 MG PO DAILY, (Reported) Entered as Reported by: NIURKA QUINONEZ on 05/19/211530 Last Action: Continued Apixaban (Eliquis) 2.5 Mg Tablet, 2.5 MG PO BID, (Reported) Entered as Reported by: NIURKA QUINONEZ on 05/19/211530 Last Action: Held Furosemide (Furosemide) 20 Mg Tablet, 20 MG PO DAILY, (Reported) Entered as Reported by: NIURKA QUINONEZ on 05/19/211530 Last Action: Continued Guselkumab (Tremfya) 100 Mg/1 Ml Syringe, 100 MG SQ, (Reported) Entered as Reported by: NIURKA QUINONZE on 05/19/211530 Last Action: Held Hydrochlorothiazide (Hydrochlorothiazide) 50 Mg Tablet, 50 MG PO DAILY, (Reported) Entered as Reported by: NIURKA QUINONEZ on 05/19/211530 Last Action: Held Losartan Potassium (Losartan Potassium) 50 Mg Tablet, 50 MG PO DAILY, (Reported) Entered as Reported by: NIURKA QUINONEZ on 05/19/211530 Last Action: Continued Omeprazole (Omeprazole) 20 Mg Capsule.dr, 20 MG PO DAILY, (Reported) Entered as Reported by: NIURKA QUINONEZ on 05/19/211530 Last Action: Continued Psyllium Husk/Aspartame (Metamucil Fiber Singles Packet) 3.4 Gm Powd.pack, 3.4 GM PO, (Reported) Entered as Reported by: NIURAK QUINONEZ on 05/19/211530 Last Action: Continued Rosuvastatin Calcium (Rosuvastatin Calcium) 20 Mg Tablet, 20 MG PO DAILY, (Reported) Entered as Reported by: NIURKA QUINONEZ on 05/19/211530 Last Action: Continued Sertraline HCl (Sertraline HCl) 25 Mg Tablet, 25 MG PO DAILY, (Reported) Entered as Reported by: NIURKA QUINONEZ on 05/19/211530 Last Action: Converted Past Eivndji-Mgdlja-Wvfiqm Hx Patient Social History Marrital Status: Employed/Student: retired Smoking Status: Never a Smoker Past Medical History Atrial Fibrillation, High Cholesterol, Hypertension Dementia Gastroesophageal Reflux Arthritis Hypothyroidsim Anxiety, Depression Review of Systems ROS-Unable to Obtain: Critically ill Constitutional: see HPI, malaise, weakness Physical Exam General Appearance: WD/WN, Anxious, Chronically ill, Mild Distress, Thin Eyes: Bilateral Eye Normal Inspection, Bilateral Eye PERRL, Bilateral Eye EOMI HEENT: PERRL/EOMI, Normal ENT Inspection, Pharynx Normal Neck: Full Range of Motion, Normal Inspection, Non Tender, Supple, Carotid Bru it Respiratory: Chest Non Tender, Lungs Clear, No Accessory Muscle Use, No Respiratory Distress, Decreased Breath Sounds Cardiovascular: No Edema, No Gallop, No JVD, No Murmur, Normal Peripheral Pulses, Irregularly Irregular, Tachycardia Gastrointestinal: Normal Bowel Sounds, No Organomegaly, No Pulsatile Mass, Non Tender, Soft Back: Normal Inspection, No CVA Tenderness, No Vertebral Tenderness Extremity: Normal Capillary Refill, Normal Inspection, Normal Range of Motion, Non Tender, No Calf Tenderness, No Pedal Edema Neurologic/Psychiatric: Alert, Oriented x3, No Motor/Sensory Deficits, Normal Mood/Affect, Depressed Affect, Disoriented Skin: Normal Color, Warm/Dry Lymphatic: No Adenopathy Assessment/Plan Assessment and Plan Assessment: Atrial fibrillation with rapid ventricular response Chronic atrial fibrillation maintained on Eliquis for stroke prophylaxis COVID-19 pneumonia 12 days out in a fully vaccinated individual Acute hypoxic respiratory failure Bacterial pneumonia Dementia Hypothyroidism Hypertension Hyperlipidemia Plan: Cardiology consult eICU IV antibiotics Oxygen BiPAP Supportive care Oral anticoagulation Problems: (1) Atrial fibrillation with rapid ventricular response Admission Diagnosis Admission Status: Inpatient Order (span 2 midnights) Reason for Inpatient Admission: A. fib with RVR with COVID-19 pneumonia Supervisory-Addendum Brief Verification & Attestation Participated in pt care: history, MDM, physical Personally performed: exam, history, MDM, supervision of care Care discussed with: Medical Student Procedures: n/a Results interpretation: Verified all documentation Verification and Attestation of Medical Student E/M Service A medical student performed and documented this service in my presence. I reviewed and verified all information documented by the medical student and made modifications to such information, when appropriate. I personally performed the physical exam and medical decision making. Tiffanie Pham May 20, 2021,06:14 OTIS LEÓN May 19, 2021 16:57 TIFFANIE PHAM DO May 20, 2021 06:21
[2021-05-19] MEDS: CEFEPIME INJECTION 1,000 MG in NS (IVPB) 50 ML IV SCH (18:28)
[2021-05-19] MEDS: ACETAMINOPHEN 325 MG TABLET PO PRN (18:33)
[2021-05-20] MEDS: CEFEPIME INJECTION 1,000 MG in NS (IVPB) 50 ML IV SCH ×5 (00:10→23:11)
[2021-05-20] MEDS: ACETAMINOPHEN 325 MG TABLET PO PRN ×4 (01:45→23:10)
[2021-05-20] MEDS: dilTIAZem DRIP PRE-MIX 125 ML IV SCH ×3 (01:45→18:15)
[2021-05-20] MEDS: RT-ALBUTEROL HFA 8.5 GM INHALER IH SCH ×3 (02:22→14:03)
[2021-05-20] MEDS: SENNA W/DOCUSATE (SENOKOT S) TABLET PO SCH ×3 (02:35→21:12)
[2021-05-20] MEDS: NS IV 1000 ML 1,000 ML IV SCH ×3 (03:46→18:15)
[2021-05-20 05:00] LABS: BASOPHILS % (AUTO) 0 % (0-10); EOSINOPHILS % (AUTO) 0 % (0-10); HEMATOCRIT 34 % (35-52); HEMOGLOBIN 11.2 g/dL (11.5-16.0); LYMPHOCYTES # (AUTO) 0.5 10^3/uL (1.0-4.0); LYMPHOCYTES % (AUTO) 3 % (12-44); MEAN CORPUSCULAR HEMOGLOBIN 30 pg (25-34); MEAN CORPUSCULAR HGB CONC 33 g/dL (32-36); MEAN CORPUSCULAR VOLUME 92 fL (80-99); MEAN PLATELET VOLUME 8.3 fL (9.0-12.2); MONOCYTES # (AUTO) 0.7 10^3/uL (0.0-1.0); MONOCYTES % (AUTO) 5 % (0-12); NEUTROPHILS # (AUTO) 14.6 10^3/uL (1.8-7.8); NEUTROPHILS % (AUTO) 91 % (42-75); PLATELET COUNT 286 10^3/uL (130-400)
[2021-05-20 05:08] LABS: ALBUMIN 2.9 GM/DL (3.2-4.5); POTASSIUM 4.4 MMOL/L (3.6-5.0)
[2021-05-20 05:09] LABS: CALCIUM 8.5 MG/DL (8.5-10.1)
[2021-05-20 05:11] LABS: TOTAL PROTEIN 6.4 GM/DL (6.4-8.2)
[2021-05-20 05:13] LABS: BILIRUBIN,TOTAL 0.5 MG/DL (0.1-1.0)
[2021-05-20 05:14] LABS: CREATININE SERUM 0.76 MG/DL (0.60-1.30)
[2021-05-20] MEDS: inSUlin ASPART (NovoLOG) 1 UNIT/0.01 ML (CHARGE PER UNIT) SC SCH ×4 (05:29→21:12)
[2021-05-20] MEDS: POTASSIUM CL 10MEQ/50ML IVPB 50 ML IV SCH (05:31)
[2021-05-20] MEDS: MAGNESIUM 1 GM/100 ML IVPB 100 ML IV SCH (05:32)
[2021-05-20] MEDS: KCL 20 MEQ TAB (K-DUR) PO SCH (05:32)
[2021-05-20] MEDS: LOSARTAN 50 MG (COZAAR) TAB PO SCH (08:32)
[2021-05-20] MEDS: AMIODARONE 200 MG (CORDARONE) TAB PO SCH (08:32)
[2021-05-20] MEDS: APIXABAN 5 MG (ELIQUIS) TABLET PO SCH ×2 (08:33→21:12)
[2021-05-20] MEDS: amLODIPine 5 MG (NORVASC) TAB PO SCH (08:33)
[2021-05-20] MEDS: FUROSEMIDE 20 MG (LASIX) TAB PO SCH (08:33)
[2021-05-20] MEDS: PANTOPRAZOLE 20 MG TABLET (PROTONIX) PO SCH (08:33)
[2021-05-20] MEDS: SERTRALINE 50 MG (ZOLOFT) TABLET PO SCH (08:34)
[2021-05-20] MEDS: ROSUVASTATIN 20 MG (CRESTOR) TABLET PO SCH (08:36)
[2021-05-20] MEDS: AZITHROMYCIN INJECTION 500 MG in NS (IVPB) 250 ML IV SCH (08:49)
[2021-05-20] MEDS ORDERED: NON-FORMULARY MEDICATION 1 EA EA (Sertraline HCl 25 MG) PO SCH (09:00)
[2021-05-20] MEDS ORDERED: OMEPRAZOLE 20 MG (PriLOSEC) CAP NON-FORMULARY PO SCH (09:00)
--- NOTE | 2021-05-20 09:42 | Cardiology Progress Note ---
Subjective Date Seen by Provider: May 20, 2021 Time Seen by Provider: 09:41 Subjective/Events-last exam Patient was seen at bedside, laying down comfortably, still having shortness of breath and cough Review of Systems General: No Chills, No Night Sweats; Fatigue, Malaise; No Appetite, No Other HEENT: No Head Aches, No Visual Changes, No Eye Pain, No Ear Pain, No Dy sphasia, No Sinus Congestion, No Post Nasal Drip, No Sore Throat, No Other Pulmonary: Dyspnea, Cough; No Pleuritic Chest Pain, No Other Cardiovascular: No: Chest Pain, Palpitations, Orthopnea, Paroxysmal Noc. Dyspnea, Edema, Lt Headedness, Other Objective-Cardiology Exam Last Set of Vital Signs Vital Signs 05/20/21 05/20/21 05/20/21 05/20/21 05/20/21 00:00 08:00 08:30 08:31 09:00 Temp 36.0 Pulse 124 Resp 25 B/P (MAP) 122/86 Pulse Ox 95 O2 Delivery Vapotherm O2 Flow Rate 20.00 40.00 FiO2 50 I&O Intake and Output 05/20/21 00:00 Intake Total 400 ml Output Total 900 ml Balance -500 ml Intake Oral 400 ml Output Urine Total 900 ml Daily Weight Change No General: Alert, Oriented X3, Cooperative HEENT: Atraumatic Neck: No JVD, No Thyromegaly Lungs: Other (Bilateral rhonchi) Heart: Normal S1, Normal S2, No Murmurs, Other (Irregular rhythm) Abdomen: No Tenderness, No Hepatosplenomegaly Extremities: No Clubbing, No Cyanosis, No Tenderness/Swelling Skin: No Rashes, No Breakdown, No Significant Lesion Neuro: Normal Speech Psych/Mental Status: Mental Status NL, Mood NL Results Lab Laboratory Tests 05/19/21 11:50 05/20/21 04:50 A/P-Cardiology Admission Diagnosis Paroxysmal atrial fibrillation Tachycardia Acute respiratory insufficiency COVID-19 pneumonia Assessment/Plan Paroxysmal atrial fibrillation, still tachycardic maintained on Cardizem drip and oral amiodarone. Continue to titrate Cardizem to achieve adequate heart rate control [id number] score of 4, yearly risk of stroke without oral anticoagulation is 4%. Maintained on Eliquis Coronary artery disease, reporting history of multiple stents in the past, clinically stable at this time. Continue to monitor Hypertension, currently borderline hypotensive, monitor blood pressure COVID-19 pneumonia, acute respiratory insufficiency, maintained on Vapotherm, managed by primary care team. Diabetes mellitus, followed and managed by primary care physician MAO WRIGHT MD May 20, 2021 09:42
--- NOTE | 2021-05-20 11:08 | Tele-ICU Progress Note ---
Subjective Date Seen by a Provider: May 20, 2021 Time Seen by a Provider: 11:01 Subjective/Events-last exam Patient today is awake alert and states her breathing is better however her heart rate is running in the [id number] range despite being on a Cardizem drip. Afebrile. She is on Vapotherm at 20 L and 50%. Blood pressure is stable. Afebrile. Video visit made and d/w patient and engine turner of Systems ros per RN Sepsis Event Evaluation Height, Weight, BMI Height: '" Weight: lbs. oz. kg; 33.46 BMI Method: Exam Exam Patient acknowledged, consented, and participated in this virtual visit which was conducted using real time audio/video Vital Signs Date Time Temp Pulse Resp B/P (MAP) Pulse Ox O2 Delivery O2 Flow Rate FiO2 05/20/21 10:00 123 111/74 95 Vapotherm 20.00 40.00 05/20/21 09:00 122/86 95 Vapotherm 20.00 40.00 05/20/21 08:45 133/94 95 Vapotherm 20.00 40.00 05/20/21 08:31 36.0 05/20/21 08:30 124 146/105 95 Vapotherm 20.00 40.00 05/20/21 08:15 108 135/99 96 Vapotherm 20.00 40.00 05/20/21 08:00 130 125/89 95 Vapotherm 20.00 40.00 05/20/21 08:00 Vapotherm 20.00 50 05/20/21 07:45 129 125/91 96 Vapotherm 20.00 40.00 05/20/21 07:32 90 Vapotherm 20.00 50 05/20/21 07:30 117 137/82 99 Vapotherm 20.00 40.00 05/20/21 07:15 128 146/79 95 Vapotherm 20.00 40.00 05/20/21 07:00 121 05/20/21 07:00 126 127/92 94 Vapotherm 20.00 40.00 05/20/21 06:45 111 135/103 93 Vapotherm 20.00 40.00 05/20/21 06:30 124 129/90 95 Vapotherm 20.00 40.00 05/20/21 06:15 126 130/54 94 Vapotherm 20.00 40.00 05/20/21 06:00 120 130/54 91 Vapotherm 20.00 40.00 05/20/21 05:45 123 137/95 91 Vapotherm 20.00 40.00 05/20/21 05:30 115 143/84 89 Vapotherm 20.00 40.00 05/20/21 05:15 126 154/103 94 Vapotherm 20.00 40.00 05/20/21 05:00 141/99 Vapotherm 20.00 40.00 05/20/21 04:45 118 115/81 96 Vapotherm 20.00 40.00 05/20/21 04:30 114 120/84 95 Vapotherm 20.00 40.00 05/20/21 04:15 123/74 Vapotherm 20.00 40.00 05/20/21 04:00 122/77 Vapotherm 20.00 40.00 05/20/21 04:00 Vapotherm 20.00 40 05/20/21 03:45 128 113/77 96 Vapotherm 20.00 40.00 05/20/21 03:30 121 120/76 96 Vapotherm 20.00 40.00 05/20/21 03:15 123 135/85 94 Vapotherm 20.00 40.00 05/20/21 03:00 133/64 Vapotherm 20.00 40.00 05/20/21 02:45 118 146/91 93 Vapotherm 20.00 40.00 05/20/21 02:30 124 148/90 95 Vapotherm 20.00 40.00 05/20/21 02:22 95 Vapotherm 20.00 50 05/20/21 02:15 128 153/95 97 Vapotherm 20.00 40.00 05/20/21 02:00 149/97 Vapotherm 20.00 40.00 05/20/21 01:45 162/108 Vapotherm 20.00 40.00 05/20/21 01:30 142/89 Vapotherm 20.00 40.00 05/20/21 01:15 121 133/91 93 Vapotherm 20.00 40.00 05/20/21 01:02 Vapotherm 20.00 40.00 05/20/21 01:00 145/83 Vapotherm 20.00 35.00 05/20/21 01:00 130 05/20/21 00:00 125 25 142/99 91 Vapotherm 20.00 35.00 05/20/21 00:00 Vapotherm 20.00 40 05/19/21 23:18 36.8 05/19/21 23:00 118 142/91 92 Vapotherm 20.00 35.00 05/19/21 22:45 139/87 88 Vapotherm 20.00 35.00 05/19/21 22:30 126 129/81 93 Vapotherm 20.00 35.00 05/19/21 22:15 135/99 90 Vapotherm 20.00 35.00 05/19/21 22:00 118 135/99 94 Vapotherm 20.00 35.00 05/19/21 21:45 128 131/116 93 Vapotherm 20.00 35.00 05/19/21 21:33 94 Vapotherm 20.00 35 05/19/21 21:30 117 130/80 94 Vapotherm 20.00 35.00 05/19/21 21:15 117 146/86 92 Vapotherm 20.00 35.00 05/19/21 21:00 110 146/86 94 Vapotherm 20.00 35.00 05/19/21 20:45 122 131/85 95 Vapotherm 20.00 35.00 05/19/21 20:30 114 142/83 94 Vapotherm 20.00 35.00 05/19/21 20:15 118 130/95 93 Vapotherm 20.00 35.00 05/19/21 20:00 118 130/95 94 Vapotherm 20.00 35.00 05/19/21 20:00 35.7 05/19/21 20:00 Vapotherm 25.00 35 05/19/21 19:45 121 147/89 86 Vapotherm 20.00 35.00 05/19/21 19:30 123 135/88 94 Vapotherm 20.00 35.00 05/19/21 19:15 118 152/82 94 Vapotherm 20.00 35.00 05/19/21 19:00 116 05/19/21 19:00 121 152/82 94 Vapotherm 20.00 35.00 05/19/21 18:00 86 16 128/62 97 Vapotherm 20.00 35.00 05/19/21 17:45 Vapotherm 20.00 35.00 05/19/21 17:30 89 22 128/63 92 Vapotherm 20.00 35.00 05/19/21 17:15 90 8 122/54 89 Vapotherm 20.00 35.00 05/19/21 17:00 88 20 119/60 88 Vapotherm 20.00 35.00 05/19/21 16:45 88 20 119/60 88 Vapotherm 20.00 35.00 05/19/21 16:30 91 23 119/55 88 Vapotherm 20.00 35.00 05/19/21 16:15 86 16 113/55 90 Vapotherm 20.00 35.00 05/19/21 16:00 90 21 109/52 95 Vapotherm 20.00 35.00 05/19/21 16:00 36.2 05/19/21 15:57 Vapotherm 25.00 35 05/19/21 15:45 93 88 121/30 88 Vapotherm 20.00 35.00 05/19/21 15:30 118 42 138/92 95 Vapotherm 20.00 35.00 05/19/21 15:20 121 93 05/19/21 15:15 125 55 140/92 92 Vapotherm 20.00 35.00 05/19/21 15:00 130 25 136/94 93 Vapotherm 20.00 35.00 05/19/21 14:45 115 128/82 94 Vapotherm 20.00 35.00 05/19/21 14:30 120 141/96 95 Vapotherm 20.00 35.00 05/19/21 14:15 124 25 124/85 95 Vapotherm 20.00 35.00 05/19/21 14:00 116 53 125/71 96 Vapotherm 20.00 35.00 05/19/21 13:57 94 Vapotherm 20.00 35 05/19/21 13:45 110 25 137/88 94 Vapotherm 20.00 35.00 05/19/21 13:30 116 37 129/90 94 Vapotherm 20.00 35.00 05/19/21 13:15 112 39 115/98 94 Vapotherm 20.00 35.00 05/19/21 13:00 123 28 129/87 94 Vapotherm 20.00 35.00 05/19/21 12:45 111 05/19/21 12:45 123 37 128/89 90 Vapotherm 20.00 35.00 05/19/21 12:30 124 48 136/88 90 Vapotherm 20.00 35.00 05/19/21 12:15 118 44 135/97 94 Vapotherm 20.00 35.00 05/19/21 12:00 124 27 132/81 94 Vapotherm 20.00 35.00 05/19/21 12:00 Vapotherm 25.00 35 05/19/21 11:48 121 29 107/76 95 Vapotherm 20.00 35.00 05/19/21 11:45 121 29 95 Vapotherm 20.00 35.00 05/19/21 11:42 36.3 05/19/21 11:30 121 21 126/97 93 Vapotherm 20.00 35.00 05/19/21 11:15 126 21 126/104 93 Vapotherm 20.00 35.00 I & O 05/20/21 07:00 Intake Total 700 ml Output Total 1600 ml Balance -900 ml Height & Weight Height: '" Weight: lbs. oz. kg; 33.46 BMI Method: General Appearance: WD/WN, Anxious, Chronically ill, Mild Distress, Thin HEENT: PERRL/EOMI, Normal ENT Inspection, Pharynx Normal Neck: Full Range of Motion, Normal Inspection, Non Tender, Supple, Carotid Bruit Respiratory: Chest Non Tender, Lungs Clear, No Accessory Muscle Use, No Respiratory Distress, Decreased Breath Sounds Cardiovascular: No Edema, No Gallop, No JVD, No Murmur, Normal Peripheral Pulses, Irregularly Irregular, Tachycardia Capillary Refill: Less Than 3 Seconds Extremity: Normal Capillary Refill, Normal Inspection, Normal Range of Motion, Non Tender, No Calf Tenderness, No Pedal Edema Neurologic/Psychiatric: Alert, Oriented x3, No Motor/Sensory Deficits, Normal Mood/Affect, Depressed Affect, Disoriented Skin: Normal Color, Warm/Dry Lymphatic: No Adenopathy Other comments PE per RN Results Lab Laboratory Tests 05/19/21 11:50 05/20/21 04:50 Assessment/Plan Assessment/Plan 1. Covid-19 viral pneumonia 2.Hypoxic acute respiratory failure. 3.Afib. with RVR 4.History of hypertension 5. ? hx of dementia Recommendations 1. IV dexamethasone 2. Vapotherm for oxygenation and wean o2 as tolerated 3.monitor blood sugars and keep between 100-200 with ISS 4.Decrease ivf to kvo. 5. OAC for stroke prophylaxis and dvt prophylaxis. 6. continue ivcardiazem and add iv lopressor prn Critical Care: Critically Ill Patient Time spent with patient (mins): 25 ERNIE LAWS MD May 20, 2021 11:07
--- NOTE | 2021-05-20 11:28 | Progress Note ---
Subjective Date Seen by a Provider: May 20, 2021 Time Seen by a Provider: 11:30 Subjective/Events-last exam Patient doing the same Requiring high doses of Vapotherm No pain reported Updated daughter Wendi Checked meds and labs IV abx tolerated Still critical Lungs are very coarse Review of Systems General: Fatigue Pulmonary: Dyspnea, Cough Objective Exam Last Set of Vital Signs Vital Signs Date Time Temp Pulse Resp B/P (MAP) Pulse Ox O2 Delivery O2 Flow Rate FiO2 05/20/21 10:00 123 111/74 95 Vapotherm 20.00 40.00 05/20/21 08:31 36.0 05/20/21 08:00 50 05/20/21 00:00 25 Capillary Refill : Less Than 3 Seconds I&O Intake and Output 05/20/21 00:00 Intake Total 400 ml Output Total 900 ml Balance -500 ml Intake Oral 400 ml Output Urine Total 900 ml Daily Weight Change No General: Alert, Oriented X3, Cooperative, No Acute Distress Lungs: Other (coarse all BS) Heart: Other (Irr Irr tachy) Abdomen: Normal Bowel Sounds Psych/Mental Status: Mental Status NL, Other (poor recall) Results Lab Laboratory Tests 05/19/21 11:50: White Blood Count 14.2H, Red Blood Count 3.82, Hemoglobin 11.7, Hematocrit 36, Mean Corpuscular Volume 93, Mean Corpuscular Hemoglobin 31, Mean Corpuscular Hemoglobin Concent 33, Red Cell Distribution Width 15.6H, Platelet Count 280, Mean Platelet Volume 8.6L, Immature Granulocyte % (Auto) 1, Neutrophils (%) (Auto) 89H, Lymphocytes (%) (Auto) 3L, Monocytes (%) (Auto) 7, Eosinophils (%) (Auto) 0, Basophils (%) (Auto) 0, Neutrophils # (Auto) 12.6H, Lymphocytes # (Auto) 0.4L, Monocytes # (Auto) 0.9, Eosinophils # (Auto) 0.0, Basophils # (Auto) 0.0, Immature Granulocyte # (Auto) 0.2H, Neutrophils % (Manual) 88, Lymphocytes % (Manual) 5, Monocytes % (Manual) 5, Eosinophils % (Manual) 0, Basophils % (Manual) 0, Band Neutrophils 2, Anisocytosis SLIGHT, Sodium Level 127L, Potassium Level 4.2, Chloride Level 93L, Carbon Dioxide Level 22, Anion Gap 12, Blood Urea Nitrogen 19H, Creatinine 0.78, Estimat Glomerular Filtration Rate 71, BUN/Creatinine Ratio 24, Glucose Level 228H, Calcium Level 9.0, Corrected Calcium 9.6, Total Bilirubin 0.5, Aspartate Amino Transf (AST/SGOT) 31, Alanine Aminotransferase (ALT/SGPT) 46, Alkaline Phosphatase 67, Total Protein 7.3, Albumin 3.2 05/19/21 16:00: Glucometer 188H 05/19/21 20:24: Glucometer 209H 05/20/21 04:50: White Blood Count 16.0H, Red Blood Count 3.70L, Hemoglobin 11.2L, Hematocrit 34L , Mean Corpuscular Volume 92, Mean Corpuscular Hemoglobin 30, Mean Corpuscular Hemoglobin Concent 33, Red Cell Distribution Width 15.7H, Platelet Count 286, Mean Platelet Volume 8.3L, Immature Granulocyte % (Auto) 1, Neutrophils (%) (Auto) 91H, Lymphocytes (%) (Auto) 3L, Monocytes (%) (Auto) 5, Eosinophils (%) (Auto) 0, Basophils (%) (Auto) 0, Neutrophils # (Auto) 14.6H, Lymphocytes # (Auto) 0.5L, Monocytes # (Auto) 0.7, Eosinophils # (Auto) 0.0, Basophils # (Auto) 0.0, Immature Granulocyte # (Auto) 0.1, Sodium Level 128L, Potassium Level 4.4, Chloride Level 96L, Carbon Dioxide Level 22, Anion Gap 10, Blood Urea Nitrogen 18, Creatinine 0.76, Estimat Glomerular Filtration Rate 73, BUN/Creatinine Ratio 24, Glucose Level 229H, Calcium Level 8.5, Corrected Calcium 9.4, Total Bilirubin 0.5, Aspartate Amino Transf (AST/SGOT) 19, Alanine Aminotransferase (ALT/SGPT) 35, Alkaline Phosphatase 56, Total Protein 6.4, Albumin 2.9L 05/20/21 10:54: Glucometer 236H Assessment/Plan Assessment/Plan Assess & Plan/Chief Complaint Assessment: Atrial fibrillation with rapid ventricular response on Cardizem drip with Cardiology consultation Chronic atrial fibrillation maintained on Eliquis for stroke prophylaxis COVID-19 pneumonia 12 days out in a fully vaccinated individual Acute hypoxic respiratory failure on Vapotherm Bacterial pneumonia Dementia Hypothyroidism Hypertension Hyperlipidemia Plan: Cardiology consult eICU IV antibiotics Oxygen BiPAP Supportive care Oral anticoagulation 12/11/21: Supportive care ICU Kaylah hermelindo Cardiology and EICU appreciated Eliquis Diagnosis/Problems Diagnosis/Problems (1) Atrial fibrillation with rapid ventricular response Clinical Quality Measures Admission Status Admission Dx Assessment: Atrial fibrillation with rapid ventricular response Chronic atrial fibrillation maintained on Eliquis for stroke prophylaxis COVID-19 pneumonia 12 days out in a fully vaccinated individual Acute hypoxic respiratory failure Bacterial pneumonia Dementia Hypothyroidism Hypertension Hyperlipidemia Plan: Cardiology consult eICU IV antibiotics Oxygen BiPAP Supportive care Oral anticoagulation PAOLA HINDS DO May 20, 2021 11:28
[2021-05-20] MEDS: meTOprolol 5 MG/5 ML (LOPRESSOR) VIAL IV PRN ×2 (11:51→23:11)
[2021-05-20] MEDS: PSYLLIUM POWDER (METAMUCIL) 5.8 GM PACKET PO SCH (18:15)
[2021-05-21] MEDS: dilTIAZem DRIP PRE-MIX 125 ML IV SCH (02:35)
[2021-05-21] MEDS: RT-ALBUTEROL HFA 8.5 GM INHALER IH SCH ×4 (02:59→21:14)
[2021-05-21] MEDS ORDERED: DIGOXIN 0.25 MG/ML (LANOXIN) 2 ML AMP IV ONE (04:30)
--- NOTE | 2021-05-21 05:37 | Cardiology Progress Note ---
Subjective Date Seen by Provider: May 21, 2021 Time Seen by Provider: 05:36 Subjective/Events-last exam Patient was seen at bedside, laying down, still on Vapotherm. I did not examine the patient, I evaluated her and visited with the nurse and reviewed her lab results. Review of Systems General: Fatigue, Malaise Pulmonary: Dyspnea Objective-Cardiology Exam Last Set of Vital Signs Vital Signs 05/20/21 05/20/21 05/20/21 05/21/21 05/21/21 05/21/21 00:00 20:10 23:00 01:00 02:59 04:00 Temp 36.4 Pulse 114 Resp 25 B/P (MAP) 121/73 Pulse Ox 94 O2 Delivery Vapotherm O2 Flow Rate 20.00 FiO2 50 I&O Intake and Output 05/21/21 00:00 Intake Total 1995 ml Output Total 1850 ml Balance 145 ml Intake Oral 1995 ml Output Urine Total 1850 ml General: Alert, Cooperative, No Acute Distress HEENT: Atraumatic Neck: No Thyromegaly Heart: Other (Irr Irr tachy) Abdomen: Normal Bowel Sounds Extremities: No Clubbing, No Cyanosis, No Tenderness/Swelling Skin: No Breakdown, No Significant Lesion Neuro: Normal Speech Psych/Mental Status: Mental Status NL, Other (poor recall) Results Lab Laboratory Tests Test 05/20/21 10:54 05/20/21 15:53 05/20/21 20:28 Range/Units Glucometer 236 H 282 H 233 H 70-110 MG/DL A/P-Cardiology Admission Diagnosis Paroxysmal atrial fibrillation Tachycardia Acute respiratory insufficiency COVID-19 pneumonia Assessment/Plan Paroxysmal atrial fibrillation, rapid ventricular response, difficult to control, maintained on Cardizem drip 15 mg and amiodarone oral. I will switch the Cardizem to oral, adding digoxin, has been receiving metoprolol as needed IV. Continue to monitor tolerance and response. [id number] score of 4, yearly risk of stroke without oral anticoagulation is 4%. Maintained on Eliquis Coronary artery disease, reporting history of multiple stents in the past, clinically stable at this time. Continue to monitor Hypertension, currently borderline hypotensive, monitor blood pressure COVID-19 pneumonia, acute respiratory insufficiency, maintained on Vapotherm, managed by primary care team. Diabetes mellitus, followed and managed by primary care physician MAO WRIGHT MD May 21, 2021 05:37
[2021-05-21 05:40] LABS: BASOPHILS % (AUTO) 0 % (0-10); EOSINOPHILS % (AUTO) 0 % (0-10); HEMATOCRIT 38 % (35-52); HEMOGLOBIN 12.4 g/dL (11.5-16.0); LYMPHOCYTES # (AUTO) 0.6 10^3/uL (1.0-4.0); LYMPHOCYTES % (AUTO) 2 % (12-44); MEAN CORPUSCULAR HEMOGLOBIN 30 pg (25-34); MEAN CORPUSCULAR HGB CONC 33 g/dL (32-36); MEAN CORPUSCULAR VOLUME 92 fL (80-99); MEAN PLATELET VOLUME 8.3 fL (9.0-12.2); MONOCYTES # (AUTO) 1.3 10^3/uL (0.0-1.0); MONOCYTES % (AUTO) 5 % (0-12); NEUTROPHILS # (AUTO) 22.9 10^3/uL (1.8-7.8); NEUTROPHILS % (AUTO) 91 % (42-75); PLATELET COUNT 371 10^3/uL (130-400); WHITE BLOOD COUNT 25.1 10^3/uL (4.3-11.0)
[2021-05-21 05:54] LABS: ALBUMIN 3.2 GM/DL (3.2-4.5); POTASSIUM 4.4 MMOL/L (3.6-5.0)
[2021-05-21 05:55] LABS: CALCIUM 8.9 MG/DL (8.5-10.1)
[2021-05-21 05:56] LABS: TOTAL PROTEIN 7.1 GM/DL (6.4-8.2)
[2021-05-21 05:58] LABS: BILIRUBIN,TOTAL 0.6 MG/DL (0.1-1.0)
[2021-05-21 06:00] LABS: CREATININE SERUM 0.81 MG/DL (0.60-1.30)
[2021-05-21] MEDS: MAGNESIUM 1 GM/100 ML IVPB 100 ML IV SCH (06:09)
[2021-05-21] MEDS: POTASSIUM CL 10MEQ/50ML IVPB 50 ML IV SCH (06:09)
[2021-05-21] MEDS: KCL 20 MEQ TAB (K-DUR) PO SCH (06:09)
--- NOTE | 2021-05-21 06:12 | Progress Note ---
Subjective Date Seen by a Provider: May 21, 2021 Time Seen by a Provider: 11:00 Subjective/Events-last exam Patient having a very slow recovery Coarse breath sounds noted Appears to be fatigued No pain reported Eating a bit Vasquez cath in place Cardizem drip DC Vapotherm maintained Review of Systems General: Fatigue, Malaise Pulmonary: Dyspnea, Cough Objective Exam Last Set of Vital Signs Vital Signs Date Time Temp Pulse Resp B/P (MAP) Pulse Ox O2 Delivery O2 Flow Rate FiO2 05/21/21 06:00 135/71 Vapotherm 20.00 40.00 05/21/21 05:45 110 94 05/21/21 04:00 50 05/20/21 20:10 36.4 05/20/21 00:00 25 Capillary Refill : Less Than 3 Seconds I&O Intake and Output 05/21/21 00:00 Intake Total 1995 ml Output Total 1850 ml Balance 145 ml Intake Oral 1995 ml Output Urine Total 1850 ml General: Alert, Oriented X3, Cooperative, No Acute Distress Lungs: Other (coarse breath sounds) Abdomen: Normal Bowel Sounds Psych/Mental Status: Mental Status NL, Other (scared) Results Lab Laboratory Tests 05/20/21 10:54: Glucometer 236H 05/20/21 15:53: Glucometer 282H 05/20/21 20:28: Glucometer 233H 05/21/21 05:28: White Blood Count 25.1H, Red Blood Count 4.09, Hemoglobin 12.4, Hematocrit 38, Mean Corpuscular Volume 92, Mean Corpuscular Hemoglobin 30, Mean Corpuscular Hemoglobin Concent 33, Red Cell Distribution Width 15.8H, Platelet Count 371, Mean Platelet Volume 8.3L, Immature Granulocyte % (Auto) 1, Neutrophils (%) (Auto) 91H, Lymphocytes (%) (Auto) 2L, Monocytes (%) (Auto) 5, Eosinophils (%) (Auto) 0, Basophils (%) (Auto) 0, Neutrophils # (Auto) 22.9H, Lymphocytes # (Auto) 0.6L, Monocytes # (Auto) 1.3H, Eosinophils # (Auto) 0.0, Basophils # (Auto) 0.0, Immature Granulocyte # (Auto) 0.3H, Sodium Level 125*L, Potassium Level 4.4, Chloride Level 93L, Carbon Dioxide Level 21, Anion Gap 11, Blood Urea Nitrogen 22H, Creatinine 0.81, Estimat Glomerular Filtration Rate 68, BUN/Creatinine Ratio 27, Glucose Level 206H, Calcium Level 8.9, Corrected Calcium 9.5, Total Bilirubin 0.6, Aspartate Amino Transf (AST/SGOT) 18, Alanine Aminotransferase (ALT/SGPT) 32, Alkaline Phosphatase 74, Total Protein 7.1, Albumin 3.2 Assessment/Plan Assessment/Plan Assess & Plan/Chief Complaint Assessment: Atrial fibrillation with rapid ventricular response on Cardizem drip with Cardiology consultation Chronic atrial fibrillation maintained on Eliquis for stroke prophylaxis COVID-19 pneumonia 12 days out in a fully vaccinated individual Acute hypoxic respiratory failure on Vapotherm Bacterial pneumonia Dementia Hypothyroidism Hypertension Hyperlipidemia Plan: Cardiology consult eICU IV antibiotics Oxygen BiPAP Supportive care Oral anticoagulation 05/20/21: Supportive care ICU Cardizem drip Cardiology and EICU appreciated Eliquis 05/21/21: Eliquis Cardizem Cardiology appreciated Slow recovery Prognosis fair Diagnosis/Problems Diagnosis/Problems (1) Atrial fibrillation with rapid ventricular response Clinical Quality Measures Admission Status Admission Dx Assessment: Atrial fibrillation with rapid ventricular response Chronic atrial fibrillation maintained on Eliquis for stroke prophylaxis COVID-19 pneumonia 12 days out in a fully vaccinated individual Acute hypoxic respiratory failure Bacterial pneumonia Dementia Hypothyroidism Hypertension Hyperlipidemia Plan: Cardiology consult eICU IV antibiotics Oxygen BiPAP Supportive care Oral anticoagulation PAOLA HINDS DO May 21, 2021 06:12
[2021-05-21] MEDS ORDERED: DIGOXIN 0.25 MG/ML (LANOXIN) 2 ML AMP ONE (06:16)
[2021-05-21] MEDS: inSUlin ASPART (NovoLOG) 1 UNIT/0.01 ML (CHARGE PER UNIT) SC SCH ×4 (06:24→20:43)
[2021-05-21] MEDS: CEFEPIME INJECTION 1,000 MG in NS (IVPB) 50 ML IV SCH ×4 (06:24→23:40)
[2021-05-21] MEDS: APIXABAN 5 MG (ELIQUIS) TABLET PO SCH ×2 (08:31→20:26)
[2021-05-21] MEDS: ROSUVASTATIN 20 MG (CRESTOR) TABLET PO SCH (08:31)
[2021-05-21] MEDS: AMIODARONE 200 MG (CORDARONE) TAB PO SCH (08:31)
[2021-05-21] MEDS: AZITHROMYCIN INJECTION 500 MG in NS (IVPB) 250 ML IV SCH (08:31)
[2021-05-21] MEDS: LOSARTAN 50 MG (COZAAR) TAB PO SCH (08:31)
[2021-05-21] MEDS: FUROSEMIDE 20 MG (LASIX) TAB PO SCH (08:32)
[2021-05-21] MEDS: amLODIPine 5 MG (NORVASC) TAB PO SCH (08:32)
[2021-05-21] MEDS: SERTRALINE 50 MG (ZOLOFT) TABLET PO SCH (08:32)
[2021-05-21] MEDS: DIGOXIN 0.125 MG (LANOXIN) TAB PO SCH (08:32)
[2021-05-21] MEDS: PANTOPRAZOLE 20 MG TABLET (PROTONIX) PO SCH (08:32)
[2021-05-21] MEDS: PSYLLIUM POWDER (METAMUCIL) 5.8 GM PACKET PO SCH (08:33)
[2021-05-21] MEDS: SENNA W/DOCUSATE (SENOKOT S) TABLET PO SCH ×2 (08:33→20:26)
--- NOTE | 2021-05-21 10:27 | Tele-ICU Progress Note ---
Subjective Date Seen by a Provider: May 21, 2021 Time Seen by a Provider: 09:00 Subjective/Events-last exam This virtual visit was conducted using real time audio/video. Thank you for asking us to see this patient for respiratory insufficiency due to covid pna. Also afib w RVR. Recent events: None overnight. PE: HR 110-120s. O2 sat 94% on VT 20/50% HEENT: No obvious masses, adenopathy or JVD. Chest: clear to auscultation. CV: Irreg. S1 S2 No murmur or added sounds. Abd: Non-tender. Bowel sounds Y. : Unremarkable. Vasquez Y. X [employer]/psychiatric: Grossly intact. No obvious focal findings. Extremities: 1+ edema. Capillary refill < 3 seconds. Skin: unremarkable. Results: Elevated WCC 25.1 (?Dex). Decreased Na 125. CXR: Cardiomeg., congested, hyperinflated. Available chart/ vitals / labs / images reviewed. Video assessment done using teleICU camera, rest of exam as per RN. A/P: Respiratory insufficiency: Continue present management with VT, Albuterol Monitor for increasing oxygenation needs and/or need for intubation. Critical Care: critically ill patient. Cont. Dilt., Dig., eliquis, AZT, Dex., Cefipime, SSI. Urine osm pending. Fluid restricted. Discussed with PRANAY Patel. Asked RN to reach out to eICU if any questions or concerns later. Time spent with patient/coordination of care with other health professionals (mins): Sepsis Event Evaluation Height, Weight, BMI Height: '" Weight: lbs. oz. kg; 33.46 BMI Method: Exam Exam Patient acknowledged, consented, and participated in this virtual visit which was conducted using real time audio/video Vital Signs Date Time Temp Pulse Resp B/P (MAP) Pulse Ox O2 Delivery O2 Flow Rate FiO2 05/21/21 09:55 93 Vapotherm 20.00 50 05/21/21 09:00 117 24 91 Vapotherm 20.00 40.00 05/21/21 08:51 120 93 123/86 92 Vapotherm 20.00 40.00 05/21/21 08:30 130 93 Vapotherm 20.00 40.00 05/21/21 08:15 124 93 Vapotherm 20.00 40.00 05/21/21 08:00 36.7 05/21/21 08:00 Vapotherm 20.00 50 05/21/21 08:00 131 91 Vapotherm 20.00 40.00 05/21/21 07:45 120 122/89 92 Vapotherm 20.00 40.00 05/21/21 07:15 122 135/89 91 Vapotherm 20.00 40.00 05/21/21 07:00 112 128/82 95 Vapotherm 20.00 40.00 05/21/21 07:00 117 05/21/21 06:00 135/71 Vapotherm 20.00 40.00 05/21/21 05:45 110 134/90 94 Vapotherm 20.00 40.00 05/21/21 05:30 122 120/82 86 Vapotherm 20.00 40.00 05/21/21 05:15 127/93 84 Vapotherm 20.00 40.00 05/21/21 05:00 114 133/91 96 Vapotherm 20.00 40.00 05/21/21 04:45 116 132/75 96 Vapotherm 20.00 40.00 05/21/21 04:30 131/80 Vapotherm 20.00 40.00 05/21/21 04:15 124 90 Vapotherm 20.00 40.00 05/21/21 04:00 120 157/107 93 Vapotherm 20.00 40.00 05/21/21 04:00 Vapotherm 20.00 50 05/21/21 03:45 121 150/87 96 Vapotherm 20.00 40.00 05/21/21 03:30 153/92 Vapotherm 20.00 40.00 05/21/21 03:15 146/111 Vapotherm 20.00 40.00 05/21/21 03:00 123 145/90 96 Vapotherm 20.00 40.00 05/21/21 02:59 94 Vapotherm 20.00 50 05/21/21 02:45 145/92 88 Vapotherm 20.00 40.00 05/21/21 02:30 129/94 Vapotherm 20.00 40.00 05/21/21 02:15 115 134/91 94 Vapotherm 20.00 40.00 05/21/21 02:00 125 147/105 94 Vapotherm 20.00 40.00 05/21/21 01:45 124 132/88 88 Vapotherm 20.00 40.00 05/21/21 01:30 108 168/101 91 Vapotherm 20.00 40.00 05/21/21 01:15 160/103 Vapotherm 20.00 40.00 05/21/21 01:00 111 146/80 93 Vapotherm 20.00 40.00 05/21/21 01:00 114 05/21/21 00:45 114 132/85 94 Vapotherm 20.00 40.00 05/21/21 00:30 112 125/70 94 Vapotherm 20.00 40.00 05/21/21 00:15 123 124/86 93 Vapotherm 20.00 40.00 05/21/21 00:00 Vapotherm 20.00 50 05/21/21 00:00 138/79 Vapotherm 20.00 40.00 05/20/21 23:45 110 122/80 94 Vapotherm 20.00 40.00 05/20/21 23:30 106 103/83 94 Vapotherm 20.00 40.00 05/20/21 23:15 121 136/94 92 Vapotherm 20.00 40.00 05/20/21 23:00 124 121/73 93 Vapotherm 20.00 40.00 05/20/21 22:45 121 149/93 93 Vapotherm 20.00 40.00 05/20/21 22:30 114 128/88 94 Vapotherm 20.00 40.00 05/20/21 22:22 95 Vapotherm 20.00 50 05/20/21 22:15 102 144/94 92 Vapotherm 20.00 40.00 05/20/21 22:00 128 136/96 92 Vapotherm 20.00 40.00 05/20/21 21:45 117 149/75 92 Vapotherm 20.00 40.00 05/20/21 21:30 112 146/110 91 Vapotherm 20.00 40.00 05/20/21 21:15 117 143/91 92 Vapotherm 20.00 40.00 05/20/21 21:00 111 146/89 94 Vapotherm 20.00 40.00 05/20/21 20:45 110 134/84 94 Vapotherm 20.00 40.00 05/20/21 20:30 116 122/89 94 Vapotherm 20.00 40.00 05/20/21 20:15 110 147/85 93 Vapotherm 20.00 40.00 05/20/21 20:10 36.4 05/20/21 20:00 116 155/86 89 Vapotherm 20.00 40.00 05/20/21 20:00 Vapotherm 20.00 50 05/20/21 19:45 112 160/102 94 Vapotherm 20.00 40.00 05/20/21 19:30 112 140/88 94 Vapotherm 20.00 40.00 05/20/21 19:15 112 134/65 90 Vapotherm 20.00 40.00 05/20/21 19:00 110 05/20/21 19:00 114 143/90 95 Vapotherm 20.00 40.00 05/20/21 17:00 110 132/89 95 Vapotherm 20.00 40.00 05/20/21 16:45 105 123/96 96 Vapotherm 20.00 40.00 05/20/21 16:30 117 136/100 91 Vapotherm 20.00 40.00 05/20/21 16:15 115 124/83 90 Vapotherm 20.00 40.00 05/20/21 16:00 Vapotherm 20.00 50 05/20/21 16:00 111 123/90 93 Vapotherm 20.00 40.00 05/20/21 15:45 122 138/98 95 Vapotherm 20.00 40.00 05/20/21 15:30 112 131/84 93 Vapotherm 20.00 40.00 05/20/21 15:15 112 143/79 94 Vapotherm 20.00 40.00 05/20/21 15:00 113 132/100 95 Vapotherm 20.00 40.00 05/20/21 14:45 118 143/87 95 Vapotherm 20.00 40.00 05/20/21 14:30 112 151/89 94 Vapotherm 20.00 40.00 05/20/21 14:15 120 156/82 90 Vapotherm 20.00 40.00 05/20/21 14:03 93 Vapotherm 20.00 50 05/20/21 14:00 117 124/113 Vapotherm 20.00 40.00 05/20/21 13:45 124 157/91 93 Vapotherm 20.00 40.00 05/20/21 13:30 115 106/72 96 Vapotherm 20.00 40.00 05/20/21 13:15 114 109/69 94 Vapotherm 20.00 40.00 05/20/21 13:00 112 103/82 95 Vapotherm 20.00 40.00 05/20/21 13:00 110 05/20/21 12:45 112 114/68 95 Vapotherm 20.00 40.00 05/20/21 12:30 109 108/86 95 Vapotherm 20.00 40.00 05/20/21 12:22 36.1 05/20/21 12:15 112 121/86 95 Vapotherm 20.00 40.00 05/20/21 12:00 Vapotherm 20.00 50 05/20/21 12:00 70 132/90 94 Vapotherm 20.00 40.00 05/20/21 11:45 114 122/97 91 Vapotherm 20.00 40.00 05/20/21 11:45 93 Vapotherm 20.00 50 05/20/21 11:30 120 120/78 95 Vapotherm 20.00 40.00 05/20/21 11:15 123 116/81 96 Vapotherm 20.00 40.00 05/20/21 11:00 121 116/84 95 Vapotherm 20.00 40.00 I & O 05/21/21 07:00 Intake Total 2145 ml Output Total 1650 ml Balance 495 ml Height & Weight Height: '" Weight: lbs. oz. kg; 33.46 BMI Method: General Appearance: No Apparent Distress, WD/WN, Anxious, Chronically ill, Mild Distress, Thin HEENT: PERRL/EOMI, Normal ENT Inspection, Pharynx Normal Neck: Full Range of Motion, Normal Inspection, Non Tender, Supple, Carotid Bruit Respiratory: Chest Non Tender, Lungs Clear, No Accessory Muscle Use, No Respiratory Distress, Decreased Breath Sounds Cardiovascular: No Edema, No Gallop, No JVD, No Murmur, Normal Peripheral Pulses, Irregularly Irregular, Tachycardia Capillary Refill: Less Than 3 Seconds Peripheral Pulses: 1+ Dorsalis Pedis (R), 1+ Left Dors-Pedis (L) (See free text) Extremity: Normal Capillary Refill, Normal Inspection, Normal Range of Motion, Non Tender, No Calf Tenderness, No Pedal Edema Neurologic/Psychiatric: Alert, Oriented x3, No Motor/Sensory Deficits, Normal Mood/Affect, Depressed Affect, Disoriented Skin: Normal Color, Warm/Dry Lymphatic: No Adenopathy Results Lab Laboratory Tests 05/19/21 11:50 05/20/21 04:50 05/21/21 05:28 Assessment/Plan Assessment/Plan See free text Critical Care: Critically Ill Patient BERTIN PAULINO MD May 21, 2021 10:27
[2021-05-21] MEDS: ACETAMINOPHEN 325 MG TABLET PO PRN ×2 (11:37→20:58)
[2021-05-21] MEDS: SODIUM CHLORIDE 1 GM TABLET PO SCH ×2 (14:32→20:54)
[2021-05-21] MEDS: NS IV 1000 ML 1,000 ML IV SCH (14:51)
[2021-05-22] MEDS: RT-ALBUTEROL HFA 8.5 GM INHALER IH SCH ×4 (03:03→21:43)
[2021-05-22 05:57] LABS: BASOPHILS % (AUTO) 0 % (0-10); EOSINOPHILS % (AUTO) 0 % (0-10); HEMATOCRIT 35 % (35-52); HEMOGLOBIN 11.4 g/dL (11.5-16.0); LYMPHOCYTES # (AUTO) 0.4 10^3/uL (1.0-4.0); LYMPHOCYTES % (AUTO) 2 % (12-44); MEAN CORPUSCULAR HEMOGLOBIN 30 pg (25-34); MEAN CORPUSCULAR HGB CONC 33 g/dL (32-36); MEAN CORPUSCULAR VOLUME 92 fL (80-99); MEAN PLATELET VOLUME 8.5 fL (9.0-12.2); MONOCYTES # (AUTO) 0.9 10^3/uL (0.0-1.0); MONOCYTES % (AUTO) 4 % (0-12); NEUTROPHILS % (AUTO) 93 % (42-75); PLATELET COUNT 314 10^3/uL (130-400); WHITE BLOOD COUNT 20.4 10^3/uL (4.3-11.0)
[2021-05-22 06:16] LABS: ALBUMIN 2.7 GM/DL (3.2-4.5)
[2021-05-22 06:17] LABS: POTASSIUM 4.7 MMOL/L (3.6-5.0)
[2021-05-22 06:18] LABS: CALCIUM 8.5 MG/DL (8.5-10.1)
[2021-05-22 06:19] LABS: TOTAL PROTEIN 5.9 GM/DL (6.4-8.2)
[2021-05-22 06:21] LABS: BILIRUBIN,TOTAL 0.6 MG/DL (0.1-1.0)
[2021-05-22 06:23] LABS: CREATININE SERUM 0.72 MG/DL (0.60-1.30); LYMPHOCYTES % (MANUAL) 1 %; MONOCYTES % (MANUAL) 2 %; MYELOCYTES % 1 %; NEUTROPHILS % (MANUAL) 96 %
[2021-05-22 06:24] LABS: ANISOCYTOSIS SLIGHT
[2021-05-22] MEDS: POTASSIUM CL 10MEQ/50ML IVPB 50 ML IV SCH (06:35)
[2021-05-22] MEDS: KCL 20 MEQ TAB (K-DUR) PO SCH (06:35)
[2021-05-22 06:36] LABS: PHOSPHORUS 3.4 MG/DL (2.3-4.7)
[2021-05-22 06:38] LABS: MAGNESIUM 2.3 MG/DL (1.6-2.4)
[2021-05-22] MEDS: CEFEPIME INJECTION 1,000 MG in NS (IVPB) 50 ML IV SCH ×3 (06:52→18:40)
[2021-05-22] MEDS: inSUlin ASPART (NovoLOG) 1 UNIT/0.01 ML (CHARGE PER UNIT) SC SCH ×4 (06:52→21:36)
[2021-05-22] MEDS: MAGNESIUM 1 GM/100 ML IVPB 100 ML IV SCH (06:56)
[2021-05-22] MEDS: PSYLLIUM POWDER (METAMUCIL) 5.8 GM PACKET PO SCH (08:33)
[2021-05-22] MEDS: ACETAMINOPHEN 325 MG TABLET PO PRN ×3 (08:34→21:36)
[2021-05-22] MEDS: LOSARTAN 50 MG (COZAAR) TAB PO SCH (08:35)
[2021-05-22] MEDS: ROSUVASTATIN 20 MG (CRESTOR) TABLET PO SCH (08:35)
[2021-05-22] MEDS: APIXABAN 5 MG (ELIQUIS) TABLET PO SCH ×2 (08:35→21:36)
[2021-05-22] MEDS: FUROSEMIDE 20 MG (LASIX) TAB PO SCH (08:35)
[2021-05-22] MEDS: PANTOPRAZOLE 20 MG TABLET (PROTONIX) PO SCH (08:35)
[2021-05-22] MEDS: SERTRALINE 50 MG (ZOLOFT) TABLET PO SCH (08:35)
[2021-05-22] MEDS: SODIUM CHLORIDE 1 GM TABLET PO SCH ×2 (08:36→21:36)
[2021-05-22] MEDS: SENNA W/DOCUSATE (SENOKOT S) TABLET PO SCH ×2 (08:36→21:40)
[2021-05-22] MEDS: AMIODARONE 200 MG (CORDARONE) TAB PO SCH (08:37)
[2021-05-22] MEDS: amLODIPine 5 MG (NORVASC) TAB PO SCH (08:37)
[2021-05-22] MEDS: NS IV 1000 ML 1,000 ML IV SCH (08:38)
[2021-05-22] MEDS: DIGOXIN 0.125 MG (LANOXIN) TAB PO SCH (08:38)
[2021-05-22] MEDS: AZITHROMYCIN 250 MG TAB (ZITHROMAX) PO SCH (08:51)
--- NOTE | 2021-05-22 08:52 | Cardiology Progress Note ---
Subjective Date Seen by Provider: May 22, 2021 Time Seen by Provider: 08:51 Subjective/Events-last exam Patient is in bed, still having episodes of tachycardia with borderline hypotension I visited with her nurse, reviewed the chart and her medications. Objective-Cardiology Exam Last Set of Vital Signs Vital Signs 05/21/21 05/22/21 05/22/21 16:00 08:00 08:30 Temp 36.8 Pulse 112 Resp 20 B/P (MAP) 162/63 Pulse Ox 95 O2 Delivery High Flow N/C O2 Flow Rate 5.00 FiO2 50 I&O Intake and Output 05/22/21 00:00 Intake Total 2459 ml Output Total 2575 ml Balance -116 ml Intake Oral 2459 ml Output Urine Total 2575 ml General: Alert, Oriented X3, Cooperative, No Acute Distress HEENT: Atraumatic Neck: No Thyromegaly Lungs: Other (coarse breath sounds) Heart: Other (Irr Irr tachy) Extremities: No Clubbing, No Cyanosis, No Tenderness/Swelling Skin: No Breakdown, No Significant Lesion Neuro: Normal Speech Psych/Mental Status: Mental Status NL, Other (scared) Results Lab Laboratory Tests 05/22/21 05:20 A/P-Cardiology Admission Diagnosis Paroxysmal atrial fibrillation Tachycardia Acute respiratory insufficiency COVID-19 pneumonia Assessment/Plan Paroxysmal atrial fibrillation, rapid ventricular response, currently on Cardizem 90 mg every 6 hours, I will add Toprol-XL 50 mg daily and monitor tolerance and response [id number] score of 4, yearly risk of stroke without oral anticoagulation is 4%. Maintained on Eliquis Coronary artery disease, reporting history of multiple stents in the past, clinically stable at this time. Continue to monitor Hypertension, currently borderline hypotensive, I will stop amlodipine and losartan and use Toprol-XL 50 mg daily in addition to Cardizem and monitor tolerance and response COVID-19 pneumonia, acute respiratory insufficiency, maintained on Vapotherm, managed by primary care team. Diabetes mellitus, followed and managed by primary care physician MAO WRIGHT MD May 22, 2021 08:52
[2021-05-22] MEDS: meTOproloL SUCCINATE 50 MG (TOPROL XL) TAB PO SCH (09:25)
--- NOTE | 2021-05-22 09:58 | Progress Note ---
Subjective Date Seen by a Provider: May 22, 2021 Time Seen by a Provider: 11:00 Subjective/Events-last exam Pt doing well Confusion continues Will need a senior care at NH after she talked to the nurse Transferring to 4th floor Off Vapotherm Lungs are still coarse but doing a lot better Checked meds and labs Review of Systems General: Fatigue, Malaise Pulmonary: Dyspnea, Cough Objective Exam Last Set of Vital Signs Vital Signs Date Time Temp Pulse Resp B/P (MAP) Pulse Ox O2 Delivery O2 Flow Rate FiO2 05/22/21 08:30 112 20 95 High Flow N/C 5.00 05/22/21 08:00 36.8 05/22/21 08:00 162/63 05/21/21 16:00 50 Capillary Refill : Less Than 3 Seconds I&O Intake and Output 05/22/21 00:00 Intake Total 2459 ml Output Total 2575 ml Balance -116 ml Intake Oral 2459 ml Output Urine Total 2575 ml General: Alert, Oriented X3, Cooperative, No Acute Distress Lungs: Other (Wheezing and rhonchi) Heart: Regular Rate Psych/Mental Status: Mental Status NL, Other (Poor memory recall) Results Lab Laboratory Tests 05/21/21 10:38: Glucometer 198H 05/21/21 16:25: Glucometer 235H 05/22/21 05:20: White Blood Count 20.4H, Red Blood Count 3.79L, Hemoglobin 11.4L, Hematocrit 35, Mean Corpuscular Volume 92, Mean Corpuscular Hemoglobin 30, Mean Corpuscular Hemoglobin Concent 33, Red Cell Distribution Width 15.8H, Platelet Count 314, Mean Platelet Volume 8.5L, Immature Granulocyte % (Auto) 1, Neutrophils (%) (Au to) 93H, Lymphocytes (%) (Auto) 2L, Monocytes (%) (Auto) 4, Eosinophils (%) (Auto) 0, Basophils (%) (Auto) 0, Neutrophils # (Auto) 19.0H, Lymphocytes # (Auto) 0.4L, Monocytes # (Auto) 0.9, Eosinophils # (Auto) 0.0, Basophils # (Auto) 0.0, Immature Granulocyte # (Auto) 0.2H, Neutrophils % (Manual) 96, Lymphocytes % (Manual) 1, Monocytes % (Manual) 2, Myelocytes % 1, Anisocytosis SLIGHT, Sodium Level 131L, Potassium Level 4.7, Chloride Level 99, Carbon Dioxide Level 22, Anion Gap 10, Blood Urea Nitrogen 18, Creatinine 0.72, Estimat Glomerular Filtration Rate 78, BUN/Creatinine Ratio 25, Glucose Level 205H, Calcium Level 8.5, Corrected Calcium 9.5, Phosphorus Level 3.4, Magnesium Level 2.3, Total Bilirubin 0.6, Aspartate Amino Transf (AST/SGOT) 13, Alanine Aminotransferase (ALT/SGPT) 23, Alkaline Phosphatase 55, Total Protein 5.9L, Albumin 2.7L, Digoxin Level 0.63L Assessment/Plan Assessment/Plan Assess & Plan/Chief Complaint Assessment: Atrial fibrillation with rapid ventricular response status post Cardizem drip with Cardiology consultation Chronic atrial fibrillation maintained on Eliquis for stroke prophylaxis COVID-19 pneumonia 12 days out in a fully vaccinated individual Acute hypoxic respiratory failure on Vapotherm Bacterial pneumonia Dementia Hypothyroidism Hypertension Hyperlipidemia Plan: Cardiology consult eICU IV antibiotics Oxygen BiPAP Supportive care Oral anticoagulation 05/20/21: Supportive care ICU Cardizem drip Cardiology and EICU appreciated Eliquis 05/21/21: Eliquis Cardizem Cardiology appreciated Slow recovery Prognosis fair 05/22/2021: Transfer to fourth floor Supportive care Diagnosis/Problems Diagnosis/Problems (1) Atrial fibrillation with rapid ventricular response Clinical Quality Measures Admission Status Admission Dx Assessment: Atrial fibrillation with rapid ventricular response Chronic atrial fibrillation maintained on Eliquis for stroke prophylaxis COVID-19 pneumonia 12 days out in a fully vaccinated individual Acute hypoxic respiratory failure Bacterial pneumonia Dementia Hypothyroidism Hypertension Hyperlipidemia Plan: Cardiology consult eICU IV antibiotics Oxygen BiPAP Supportive care Oral anticoagulation PAOLA HINDS DO May 22, 2021 09:58
--- NOTE | 2021-05-22 11:45 | Physical Therapy Evaluation ---
PT Evaluation-General Medical Diagnosis Admission Date May 19, 2021 at 10:43 Medical Diagnosis: A-Fib with RVR, Covid Onset Date: May 19, 2021 Therapy Diagnosis Therapy Diagnosis: Gait deficit, strength deficit Precautions Precautions/Isolations: Airborne Isolation, Droplet Isolation Referral Physician: Dr. Pham Reason for Referral: Evaluation/Treatment Medical History Pertinent Medical History: Atrial Fib, Dementia Social History Home: Single Level Current Living Status: Spouse Entry Into Home: Level Entry PT Steps Into Home: 0 Prior Prior Level of Function SCALE: Activities may be completed with or without assistive devices. 5-Doqsxhebdo-zbowzuz completes the activity by him/herself with no assistance from a helper. 5-Set-up or Clean-up Assistance-helper sets up or cleans up; patient completes activity. [place] assists only prior to or following the activity. 4-Supervision or Touching Assistance-helper provides verbal cues and/or touching/steadying and/or contact guard assistance as patient completes activity. Assistance may be provided throughout the activity or intermittently. 3-Partial/Moderate Assistance-helper does LESS THAN HALF the effort. [place] lifts, holds or supports trunk or limbs, but provides less than half the effort. 2-Substantial/Maximal Assistance-helper does MORE THAN HALF the effort. [place] lifts or holds trunk or limbs and provides more than half the effort. 2-Wwwyosdoo-hwkxbu does ALL the effort. Patient does none of the effort to complete the activity. Or, the assistance of 2 or more helpers is required for the patient to complete the activity. If activity was not attempted, code reason: 7-Patient Refused. 9-Not Applicable-not attempted and the patient did not perform the activity before the current illness, exacerbation or injury. 10-Not Attempted due to Environmental Limitations-(lack of equipment, weather restraints, etc.). 88-Not Attempted due to Medical Conditions or Safety Concerns. Bed Mobility: 6 Transfers (B,C,W/C): 6 Gait: 6 Stairs: 6 Indoor Mobility (Ambulation): Independent Stairs: Independent Prior Devices Use: Walker PT Evaluation-Current Subjective Patient rates pain at 0/10. States "I can't get up because of my back pain." Patient becomes very tearful when discussing returning home and indicates she had thought she would be going home today. Objective Patient Orientation: Person Attachments: Oxygen, Vasquez Catheter, IV ROM/Strength ROM Lower Extremities WFLs bilaterally through all planes AROM Strength Lower Extremities 3+/5 bilaterally all planes Sensory Vision: Wears Glasses Hearing: Functional Sensation Right Lower Extremit: Intact Sensation Left Lower Extremity: Intact Transfers Roll Left to Right (QC): 2 Sit to Lying (QC): 2 Lying to Sitting/Side of Bed(Q: 3 Sit to Stand (QC): 3 Gait Does the Patient Walk?: No and Walking Goal IS indicated Mode of Locomotion: Walk Anticipated Mode of Locomotion: Walk Walk 10 feet (QC): 88 Balance Sitting Static: Fair Sitting Dynamic: Fair Standing Static: Poor Standing Dynamic: Poor Assessment/Needs Patient tolerated treatment fair. She demonstrates fair overall O2 response to activity in taht her O2 sats never went below 88% with activity. Patient performed all observed bed mobility and transfers with max/mod A. She was able to tolerate sitting at the edge of the bed with CGA at times once she maintained a sitting posture. Patient performed sit to stand with mod A and was able to sidestep minimally higher in the bed. Performed sit to supine with CGA and required total A for sliding higher in bed. Patient in bed post treatment with all needs met, nursing notified, call light in hand. Rehab Potential: Fair Post Rehab Potential-Barriers: Cognition Equipment Needs Unsure at this time PT Short Term Goals Short Term Goals Time Frame: May 29, 2021 Roll Left & Right: 4 Sit to lyin Lying to sitting on side of be: 4 Sit to stand: 4 Chair/jbb-wk-bvjma transfer: 4 Toilet transfer: 4 Walk 10 feet: 3 Walk 50 feet with two turns: 3 PT Patrol Conductor Goals Fdc Goals PT Patrol Conductor Goals Time Frame: Jun 09, 2021 Roll Left & Right (QC): 5 Sit to Lying (QC): 5 Lying-Sitting on Side/Bed(QC): 5 Sit to Stand (QC): 5 Chair/Nwm-zx-Ylyfq Xfer(QC): 5 Toilet Transfer (QC): 5 Car Transfer (QC): 5 Does the Patient Walk: Yes Walk 10 feet (QC): 4 Walk 50ft with 2 Turns (QC): 4 Walk 150 ft (QC): 4 PT Plan Problem List Problem List: Activity Tolerance, Functional Strength, Safety, Balance, Gait, Transfer, Bed Mobility, ROM Treatment/Plan Treatment Plan: Continue Plan of Care Treatment Plan: Bed Mobility, Education, Functional Activity Tiffany, Functional Strength, Group Therapy, Gait, Safety, Therapeutic Exercise, Transfers Treatment Duration: Jul 07, 2021 Frequency: 6 times per week Estimated Hrs Per Day: .25 hour per day Patient and/or Family Agrees t: Yes Safety Risks/Education Patient Education: Transfer Techniques, Safety Issues Teaching Recipient: Patient Teaching Methods: Demonstration, Discussion Response to Teaching: Reinforcement Needed Discharge Recommendations Target Placement Post Acute placement Time/GCodes Time In: 925 Time Out: 950 Total Billed Treatment Time: 25 Total Billed Treatment Visit, BONNIE Elliott JOHN A PT May 22, 2021 11:45
--- NOTE | 2021-05-22 13:14 | Occupational Therapy Eval ---
OT Evaluation-General/PLF Medical Diagnosis Admission Date May 19, 2021 at 10:43 Medical Diagnosis: A-Fib with RVR, Covid Onset Date: May 19, 2021 Therapy Diagnosis Therapy Diagnosis: Impaired endurance, adls, strength, cognition Precautions Precautions/Isolations: Airborne Isolation, Droplet Isolation Referral Physician: Dr. Pham Referral Reason: Evaluation/Treatment Medical History Pertinent Medical History: Atrial Fib, CAD, Dementia, HTN Current History Pt with worsening Covid pneumonia. She reports living with her spouse in a multilevel home. All needs can be met on main level. She verbalizes indep with all adls and iadls prior to admission. According to pt's RN (who spoke with pt's daughter), pt has been experiencing increased difficulty with all self cares and home management. She was using a walker prior to admission. Reviewed History: Yes Social History Home: Multilevel Current Living Status: Spouse Entry Into Home: Level Entry Steps Into Home: 0 ADL-Prior Level of Function SCALE: Activities may be completed with or without assistive devices. 2-Cdxvylvcii-vohakfy completes the activity by him/herself with no assistance from a helper. 5-Set-up or Clean-up Assistance-helper sets up or cleans up; patient completes activity. [place] assists only prior to or following the activity. 4-Supervision or Touching Assistance-helper provides verbal cues and/or touching/steadying and/or contact guard assistance as patient completes activity. Assistance may be provided throughout the activity or intermittently. 3-Partial/Moderate Assistance-helper does LESS THAN HALF the effort. [place] lift s, holds or supports trunk or limbs, but provides less than half the effort. 2-Substantial/Maximal Assistance-helper does MORE THAN HALF the effort. [place] lifts or holds trunk or limbs and provides more than half the effort. 9-Kxnmgfvde-lewfhk does ALL the effort. Patient does none of the effort to complete the activity. Or, the assistance of 2 or more helpers is required for the patient to complete the activity. If activity was not attempted, code reason: 7-Patient Refused. 9-Not Applicable-not attempted and the patient did not perform the activity before the current illness, exacerbation or injury. 10-Not Attempted due to Environmental Limitations-(lack of equipment, weather restraints, etc.). 88-Not Attempted due to Medical Conditions or Safety Concerns. Self Care: Independent Functional Cognition: Unknown DME/Equipment: Bath Chair, Tub/Shower OT Current Status Subjective Pt tearful at OT arrival. Reports being upset that the other therapist (PT) told her that she was too weak to go home today. Still agreeable to OT eval. Appearance Returned to supine in bed, all needs within reach. Mental Status/Objective Patient Orientation: Person, Confused Attachments: Vasquez Catheter, IV, Oxygen, Telemetry Current Glasses/Contacts: Yes Hearing Aids: No Dentures/Partials: Yes Hand Dominance: Right Upper Extremity ROM 3/4 AROM: bernabe shoulders ADL-Treatment Eating (QC): 4 Lower Body Dressing (QC): 1 On/Off Footwear (QC): 1 Toileting Hygiene (QC): 1 Pt supine at OT arrival, Oxygen 94%. Mod-max a to sit EOB. Intermittent CGA for sitting balance. Desat to 76% sitting EOB, >1 minute to recover. Reports feelings of lightheadedness. Unable to tolerate sitting to perform ADLs. Max a to return to supine. Assist x2 to supine scoot to HOB. Mod a to roll R/L to ad just multiple lines/tubes. Education OT Patient Education: Correct positioning, Modified ADL techniques, Progress toward Goal/Update tx plan, Purpose of tx/functional activities, Safety issues, Transfer techniques Teaching Recipient: Patient Teaching Methods: Discussion Response to Teaching: Verbalize Understanding, Reinforcement Needed OT Senior Care Goals Edge Roller Goals Time Frame: Jun 16, 2021 Oral Hygiene (QC): 5 Toileting Hygiene (QC): 4 Shower/Bathe Self (QC): 4 Upper Body Dressing (QC): 4 Lower Body Dressing (QC): 4 On/Off Footwear (QC): 4 1=Demonstrate adherence to instructed precautions during ADL tasks. 2=Patient will verbalize/demonstrate understanding of assistive devices/modifications for ADL. 3=Patient will improve strength/tolerance for activity to enable patient to perform ADL's. OT Education/Plan Problem List/Assessment Assessment: Decreased Activ Tolerance, Decreased UE Strength, Dependent Transfers, Impaired Bed Mobility, Impaired Cognition, Impaired Funct Balance, Impaired I ADL's, Impaired Self-Care Skills, Restricted Funct UE ROM Discharge Recommendations Plan/Recommendations: Continue POC Therapy Discharge Recommendati: Post Acute OT Treatment Plan/Plan of Care Treatment,Training & Education: Yes Patient would benefit from OT for education, treatment and training to promote independence in ADL's, mobility, safety and/or upper extremity function for ADL's. Plan of Care: ADL Retraining, Functional Mobility, Group Exercise/Act as Ind, UE Funct Exercise/Act Treatment Duration: Jun 16, 2021 Frequency: 3 times per week Estimated Hrs Per Day: .25 hour per day Agreement: Yes Rehab Potential: Fair 3-5x/week Time/GCodes Start Time: 10:21 Stop Time: 10:45 Total Time Billed (hr/min): 24 Billed Treatment Time 1 visit EVM (10 min) ADL (14 min) Angi Coronado OT May 22, 2021 13:14
[2021-05-23] MEDS: CEFEPIME INJECTION 1,000 MG in NS (IVPB) 50 ML IV SCH ×5 (01:00→23:38)
[2021-05-23] MEDS: RT-ALBUTEROL HFA 8.5 GM INHALER IH SCH ×3 (02:26→15:12)
[2021-05-23 05:50] LABS: BASOPHILS % (AUTO) 0 % (0-10); EOSINOPHILS % (AUTO) 0 % (0-10); HEMATOCRIT 37 % (35-52); HEMOGLOBIN 11.9 g/dL (11.5-16.0); LYMPHOCYTES # (AUTO) 0.4 10^3/uL (1.0-4.0); LYMPHOCYTES % (AUTO) 2 % (12-44); MEAN CORPUSCULAR HEMOGLOBIN 30 pg (25-34); MEAN CORPUSCULAR HGB CONC 32 g/dL (32-36); MEAN CORPUSCULAR VOLUME 93 fL (80-99); MEAN PLATELET VOLUME 8.4 fL (9.0-12.2); MONOCYTES % (AUTO) 5 % (0-12); NEUTROPHILS % (AUTO) 92 % (42-75); PLATELET COUNT 327 10^3/uL (130-400); WHITE BLOOD COUNT 21.6 10^3/uL (4.3-11.0)
[2021-05-23 06:01] LABS: ALBUMIN 2.8 GM/DL (3.2-4.5)
[2021-05-23 06:02] LABS: CALCIUM 8.6 MG/DL (8.5-10.1)
[2021-05-23 06:04] LABS: TOTAL PROTEIN 6.4 GM/DL (6.4-8.2)
[2021-05-23 06:05] LABS: BILIRUBIN,TOTAL 0.5 MG/DL (0.1-1.0)
[2021-05-23 06:07] LABS: CREATININE SERUM 0.76 MG/DL (0.60-1.30)
[2021-05-23] MEDS: inSUlin ASPART (NovoLOG) 1 UNIT/0.01 ML (CHARGE PER UNIT) SC SCH ×5 (06:09→21:13)
--- NOTE | 2021-05-23 07:08 | Progress Note ---
Subjective Date Seen by a Provider: May 23, 2021 Time Seen by a Provider: 10:30 Subjective/Events-last exam Pt doing a lot better Transferring to fourth floor No major issues She is really angry since she doesn't get to go home I tried to reassure her but it doesn't really make a difference Review of Systems General: Fatigue, Malaise Neurological: Confusion Objective Exam Last Set of Vital Signs Vital Signs Date Time Temp Pulse Resp B/P (MAP) Pulse Ox O2 Delivery O2 Flow Rate FiO2 05/23/21 06:52 95 High Flow N/C 5.00 05/23/21 06:00 107 16 147/93 05/23/21 04:17 35.7 05/21/21 16:00 50 Capillary Refill : Less Than 3 Seconds I&O Intake and Output 05/22/21 23:59 Intake Total 325 ml Output Total 1600 ml Balance -1275 ml Intake Oral 325 ml Output Urine Total 1600 ml General: Alert, Oriented X3 (Poor recall), Cooperative, No Acute Distress Lungs: Other (Crackles and wheezes) Heart: Regular Rate Psych/Mental Status: Mental Status NL Results Lab Laboratory Tests 05/22/21 10:44: Glucometer 241H 05/22/21 15:43: Glucometer 210H 05/22/21 20:23: Glucometer 255H 05/23/21 05:19: White Blood Count 21.6H, Red Blood Count 3.97, Hemoglobin 11.9, Hematocrit 37, Mean Corpuscular Volume 93, Mean Corpuscular Hemoglobin 30, Mean Corpuscular Hemoglobin Concent 32, Red Cell Distribution Width 15.9H, Platelet Count 327, Mean Platelet Volume 8.4L, Immature Granulocyte % (Auto) 1, Neutrophils (%) (Auto) 92H, Lymphocytes (%) (Auto) 2L, Monocytes (%) (Auto) 5, Eosinophils (%) (Auto) 0, Basophils (%) (Auto) 0, Neutrophils # (Auto) 20.0H, Lymphocytes # (Auto) 0.4L, Monocytes # (Auto) 1.0, Eosinophils # (Auto) 0.0, Basophils # (Auto) 0.0, Immature Granulocyte # (Auto) 0.2H, Sodium Level 131L, Potassium Level 5.0, Chloride Level 97L, Carbon Dioxide Level 24, Anion Gap 10, Blood Urea Nitrogen 21H, Creatinine 0.76, Estimat Glomerular Filtration Rate 73, BUN/Creatinine Ratio 28, Glucose Level 209H, Calcium Level 8.6, Corrected Calcium 9.6, Total Bilirubin 0.5, Aspartate Amino Transf (AST/SGOT) 17, Alanine Aminotransferase (ALT/SGPT) 24, Alkaline Phosphatase 64, Total Protein 6.4, Albumin 2.8L 05/23/21 05:56: Glucometer 209H Assessment/Plan Assessment/Plan Assess & Plan/Chief Complaint Assessment: Atrial fibrillation with rapid ventricular response status post Cardizem drip with Cardiology consultation Chronic atrial fibrillation maintained on Eliquis for stroke prophylaxis COVID-19 pneumonia 12 days out in a fully vaccinated individual Acute hypoxic respiratory failure on Vapotherm Bacterial pneumonia Dementia Hypothyroidism Hypertension Hyperlipidemia Plan: Cardiology consult eICU IV antibiotics Oxygen BiPAP Supportive care Oral anticoagulation 05/20/21: Supportive care ICU Cardizem drip Cardiology and EICU appreciated Eliquis 05/21/21: Eliquis Cardizem Cardiology appreciated Slow recovery Prognosis fair 05/22/2021: Transfer to fourth floor Supportive care 05/23/2021: Supportive care Confusion precludes good recovery Diagnosis/Problems Diagnosis/Problems (1) Atrial fibrillation with rapid ventricular response Clinical Quality Measures Admission Status Admission Dx Assessment: Atrial fibrillation with rapid ventricular response Chronic atrial fibrillation maintained on Eliquis for stroke prophylaxis COVID-19 pneumonia 12 days out in a fully vaccinated individual Acute hypoxic respiratory failure Bacterial pneumonia Dementia Hypothyroidism Hypertension Hyperlipidemia Plan: Cardiology consult eICU IV antibiotics Oxygen BiPAP Supportive care Oral anticoagulation PAOLA HINDS DO May 23, 2021 07:08
[2021-05-23] MEDS: SODIUM CHLORIDE 1 GM TABLET PO SCH ×2 (08:02→20:21)
[2021-05-23] MEDS: PANTOPRAZOLE 20 MG TABLET (PROTONIX) PO SCH (08:03)
[2021-05-23] MEDS: ROSUVASTATIN 20 MG (CRESTOR) TABLET PO SCH (08:03)
[2021-05-23] MEDS: meTOproloL SUCCINATE 50 MG (TOPROL XL) TAB PO SCH (08:03)
[2021-05-23] MEDS: AZITHROMYCIN 250 MG TAB (ZITHROMAX) PO SCH (08:03)
[2021-05-23] MEDS: DIGOXIN 0.125 MG (LANOXIN) TAB PO SCH (08:04)
[2021-05-23] MEDS: SERTRALINE 50 MG (ZOLOFT) TABLET PO SCH (08:04)
[2021-05-23] MEDS: AMIODARONE 200 MG (CORDARONE) TAB PO SCH (08:04)
[2021-05-23] MEDS: SENNA W/DOCUSATE (SENOKOT S) TABLET PO SCH ×2 (08:04→20:16)
[2021-05-23] MEDS: FUROSEMIDE 20 MG (LASIX) TAB PO SCH (08:04)
[2021-05-23] MEDS: APIXABAN 5 MG (ELIQUIS) TABLET PO SCH ×2 (08:05→20:16)
[2021-05-23] MEDS: PSYLLIUM POWDER (METAMUCIL) 5.8 GM PACKET PO SCH (08:05)
--- NOTE | 2021-05-23 08:48 | Cardiology Progress Note ---
Subjective Date Seen by Provider: May 23, 2021 Time Seen by Provider: 08:47 Subjective/Events-last exam Patient is laying down in bed, borderline tachycardic. Objective-Cardiology Exam Last Set of Vital Signs Vital Signs 05/21/21 05/23/21 05/23/21 05/23/21 16:00 06:00 06:52 07:55 Temp 36.5 Pulse 107 Resp 16 B/P (MAP) 147/93 Pulse Ox 95 O2 Delivery High Flow N/C O2 Flow Rate 5.00 FiO2 50 I&O Intake and Output 05/23/21 00:00 Intake Total 325 ml Output Total 1600 ml Balance -1275 ml Intake Oral 325 ml Output Urine Total 1600 ml General: Alert, No Acute Distress HEENT: Atraumatic Neck: No Thyromegaly Lungs: Other (Wheezing and rhonchi) Heart: Regular Rate Extremities: No Clubbing, No Cyanosis, No Tenderness/Swelling Skin: No Breakdown, No Significant Lesion Neuro: Normal Speech Psych/Mental Status: Mental Status NL, Other (Poor memory recall) Results Lab Laboratory Tests 05/23/21 05:19 A/P-Cardiology Admission Diagnosis Paroxysmal atrial fibrillation Tachycardia Acute respiratory insufficiency COVID-19 pneumonia Assessment/Plan Paroxysmal atrial fibrillation, rapid ventricular response, change Cardizem to CD 360 and continue on Toprol-XL with increasing the dose to 100 mg daily and monitor tolerance and response [id number] score of 4, yearly risk of stroke without oral anticoagulation is 4%. Maintained on Eliquis Coronary artery disease, reporting history of multiple stents in the past, clinically stable at this time. Continue to monitor Hypertension, blood pressure is better while off amlodipine and losartan, I will increase Toprol and monitor tolerance and response COVID-19 pneumonia, acute respiratory insufficiency, maintained on Vapotherm, managed by primary care team. Diabetes mellitus, followed and managed by primary care physician MAO WRIGHT MD May 23, 2021 08:48
[2021-05-23] MEDS ORDERED: meTOproloL SUCCINATE 50 MG (TOPROL XL) TAB PO NR (09:15)
--- NOTE | 2021-05-23 13:46 | Occupational Ther Daily Note ---
OT Current Status-Daily Note Subjective Reports fatigue, reluctant to participate, requires encouragement. Appearance Left supine in bed, all needs within reach. Mental Status/Objective Patient Orientation: Person, Confused Attachments: Vasquez Catheter, IV, Oxygen, Telemetry ADL-Treatment Therapy Code Descriptions/Definitions Functional [place] Measure: 0=Not Assessed/NA 4=Minimal Assistance 1=Total Assistance 5=Supervision or Setup 2=Maximal Assistance 6=Modified Wirt 3=Moderate Assistance 7=Complete IndependenceSCALE: Activities may be completed with or without assistive devices. 6-Xygoyymkpf-lqycqnp completes the activity by him/herself with no assistance from a helper. 5-Set-up or Clean-up Assistance-helper sets up or cleans up; patient completes activity. [place] assists only prior to or following the activity. 4-Supervision or Touching Assistance-helper provides verbal cues and/or touching/steadying and/or contact guard assistance as patient completes activity. Assistance may be provided throughout the activity or intermittently. 3-Partial/Moderate Assistance-helper does LESS THAN HALF the effort. [place] lifts, holds or supports trunk or limbs, but provides less than half the effort. 2-Substantial/Maximal Assistance-helper does MORE THAN HALF the effort. [place] l ifts or holds trunk or limbs and provides more than half the effort. 7-Ucpmftsxh-jjehir does ALL the effort. Patient does none of the effort to complete the activity. Or, the assistance of 2 or more helpers is required for the patient to complete the activity. If activity was not attempted, code reason: 7-Patient Refused. 9-Not Applicable-not attempted and the patient did not perform the activity before the current illness, exacerbation or injury. 10-Not Attempted due to Environmental Limitations-(lack of equipment, weather restraints, etc.). 88-Not Attempted due to Medical Conditions or Safety Concerns. Other Treatment Pt refuses to sit EOB this date due to c/o fatigue. With encouragement, she performed UE exercises supine in bed. O2 remained at 95% throughout. AAROM needed for L shoulder in all planes secondary to weakness. 10x1 in all planes, encouragement to continue through full set of 10 as pt often stops after ~7-8 reps despite OT counting out loud. Education OT Patient Education: Correct positioning, Exercise program, Progress toward Goal/Update tx plan, Purpose of tx/functional activities Teaching Recipient: Patient Teaching Methods: Demonstration, Discussion Response to Teaching: Reinforcement Needed OT Letterer Goals Correction Goals Time Frame: Jun 16, 2021 Oral Hygiene (QC): 5 Toileting Hygiene (QC): 4 Shower/Bathe Self (QC): 4 Upper Body Dressing (QC): 4 Lower Body Dressing (QC): 4 On/Off Footwear (QC): 4 1=Demonstrate adherence to instructed precautions during ADL tasks. 2=Patient will verbalize/demonstrate understanding of assistive devices/modifications for ADL. 3=Patient will improve strength/tolerance for activity to enable patient to perform ADL's. OT Education/Plan Problem List/Assessment Assessment: Decreased Activ Tolerance, Decreased Safety Aware, Decreased UE Strength, Impaired Bed Mobility, Impaired Cognition, Impaired Funct Balance, Impaired I ADL's, Impaired Self-Care Skills Discharge Recommendations Plan/Recommendations: Continue POC Treatment Plan/Plan of Care Treatment,Training & Education: Yes Patient would benefit from OT for education, treatment and training to promote i ndependence in ADL's, mobility, safety and/or upper extremity function for ADL's. Plan of Care: ADL Retraining, Functional Mobility, Group Exercise/Act as Ind, UE Funct Exercise/Act Treatment Duration: Jun 16, 2021 Frequency: 3 times per week Estimated Hrs Per Day: .25 hour per day Agreement: Yes Rehab Potential: Fair Time/GCodes Start Time: 13:28 Stop Time: 13:40 Total Time Billed (hr/min): 12 Billed Treatment Time 1 visit EX Angi Coronado OT May 23, 2021 13:46
--- NOTE | 2021-05-23 14:25 | Physical Therapy Progress Note ---
Therapy Progress Note Patient refuses therapy this afternoon. Patient states she is too tired and has already been up today and to come back tomorrow. Patient educated on the benefits of therapy and she continues to refuse. Will check back tomorrow. EZ PEREZ PT May 23, 2021 14:24
[2021-05-23] MEDS: ACETAMINOPHEN 325 MG TABLET PO PRN (14:52)
[2021-05-24] MEDS: ACETAMINOPHEN 325 MG TABLET PO PRN ×4 (01:02→20:47)
[2021-05-24 05:40] LABS: BASOPHILS % (AUTO) 0 % (0-10); EOSINOPHILS % (AUTO) 0 % (0-10); HEMATOCRIT 39 % (35-52); HEMOGLOBIN 12.5 g/dL (11.5-16.0); LYMPHOCYTES # (AUTO) 0.4 10^3/uL (1.0-4.0); LYMPHOCYTES % (AUTO) 2 % (12-44); MEAN CORPUSCULAR HEMOGLOBIN 30 pg (25-34); MEAN CORPUSCULAR HGB CONC 32 g/dL (32-36); MEAN CORPUSCULAR VOLUME 93 fL (80-99); MEAN PLATELET VOLUME 8.4 fL (9.0-12.2); MONOCYTES % (AUTO) 5 % (0-12); NEUTROPHILS # (AUTO) 19.1 10^3/uL (1.8-7.8); NEUTROPHILS % (AUTO) 91 % (42-75); PLATELET COUNT 318 10^3/uL (130-400); WHITE BLOOD COUNT 20.9 10^3/uL (4.3-11.0)
[2021-05-24] MEDS: CEFEPIME INJECTION 1,000 MG in NS (IVPB) 50 ML IV SCH (05:46)
--- NOTE | 2021-05-24 05:48 | Progress Note ---
Subjective Date Seen by a Provider: May 24, 2021 Time Seen by a Provider: 10:30 Subjective/Events-last exam Pt doing okay Requiring oxygen and desats quickly with any conversing Isolation DC tomorrow but will confirm with infection control Awaiting intermediate placement Review of Systems General: Fatigue, Malaise Pulmonary: Dyspnea Objective Exam Last Set of Vital Signs Vital Signs Date Time Temp Pulse Resp B/P (MAP) Pulse Ox O2 Delivery O2 Flow Rate FiO2 05/24/21 04:00 36.7 88 20 137/79 95 High Flow N/C 4.50 05/21/21 16:00 50 Capillary Refill : Less Than 3 Seconds I&O Intake and Output 05/23/21 23:59 Intake Total 1170 ml Output Total 3000 ml Balance -1830 ml Intake Oral 1070 ml IV Total 100 ml Output Urine Total 3000 ml General: Alert, Oriented X3, Cooperative, No Acute Distress Lungs: Other (Diminished breath sounds bases) Heart: Regular Rate Psych/Mental Status: Mental Status NL, Other (Confusion noted) Results Lab Laboratory Tests 05/23/21 05:56: Glucometer 209H 05/23/21 10:49: Glucometer 230H 05/23/21 15:28: Glucometer 180H 05/23/21 20:17: Glucometer 221H 05/24/21 05:22: White Blood Count 20.9H, Red Blood Count 4.17, Hemoglobin 12.5, Hematocrit 39, Mean Corpuscular Volume 93, Mean Corpuscular Hemoglobin 30, Mean Corpuscular Hemoglobin Concent 32, Red Cell Distribution Width 15.6H, Platelet Count 318, Mean Platelet Volume 8.4L, Immature Granulocyte % (Auto) 2, Neutrophils (%) (Auto) 91H, Lymphocytes (%) (Auto) 2L, Monocytes (%) (Auto) 5, Eosinophils (%) (Auto) 0, Basophils (%) (Auto) 0, Neutrophils # (Auto) 19.1H, Lymphocytes # (Auto) 0.4L, Monocytes # (Auto) 1.0, Eosinophils # (Auto) 0.0, Basophils # (Auto) 0.0, Immature Granulocyte # (Auto) 0.4H Assessment/Plan Assessment/Plan Assess & Plan/Chief Complaint Assessment: Atrial fibrillation with rapid ventricular response status post Cardizem drip with Cardiology consultation Chronic atrial fibrillation maintained on Eliquis for stroke prophylaxis COVID-19 pneumonia 20 days out in a fully vaccinated individual Acute hypoxic respiratory failure on Vapotherm nasal cannula Bacterial pneumonia Dementia Hypothyroidism Hypertension Hyperlipidemia Plan: Cardiology consult eICU IV antibiotics Oxygen BiPAP Supportive care Oral anticoagulation 05/20/21: Supportive care ICU Cardize ip Cardiology and EICU appreciated Eliquis 05/21/21: Eliquis Cardizem Cardiology appreciated Slow recovery Prognosis fair 05/22/2021: Transfer to fourth floor Supportive care 05/23/2021: Supportive care Confusion precludes good recovery 05/24/2021: DC isolation tomorrow? Await intermediate placement Diagnosis/Problems Diagnosis/Problems (1) Atrial fibrillation with rapid ventricular response Clinical Quality Measures Admission Status Admission Dx Assessment: Atrial fibrillation with rapid ventricular response Chronic atrial fibrillation maintained on Eliquis for stroke prophylaxis COVID-19 pneumonia 12 days out in a fully vaccinated individual Acute hypoxic respiratory failure Bacterial pneumonia Dementia Hypothyroidism Hypertension Hyperlipidemia Plan: Cardiology consult eICU IV antibiotics Oxygen BiPAP Supportive care Oral anticoagulation PAOLA HINDS DO May 24, 2021 05:47
[2021-05-24 05:50] LABS: ALBUMIN 2.8 GM/DL (3.2-4.5); POTASSIUM 5.2 MMOL/L (3.6-5.0)
[2021-05-24 05:51] LABS: CALCIUM 8.6 MG/DL (8.5-10.1)
[2021-05-24 05:52] LABS: TOTAL PROTEIN 6.4 GM/DL (6.4-8.2)
[2021-05-24 05:54] LABS: BILIRUBIN,TOTAL 0.5 MG/DL (0.1-1.0)
[2021-05-24 05:56] LABS: CREATININE SERUM 0.73 MG/DL (0.60-1.30)
[2021-05-24] MEDS: inSUlin ASPART (NovoLOG) 1 UNIT/0.01 ML (CHARGE PER UNIT) SC SCH ×4 (06:15→21:11)
[2021-05-24] MEDS: RT-ALBUTEROL HFA 8.5 GM INHALER IH SCH ×3 (08:08→21:20)
[2021-05-24] MEDS: SERTRALINE 50 MG (ZOLOFT) TABLET PO SCH (08:33)
[2021-05-24] MEDS: ROSUVASTATIN 20 MG (CRESTOR) TABLET PO SCH (08:33)
[2021-05-24] MEDS: APIXABAN 5 MG (ELIQUIS) TABLET PO SCH ×2 (08:33→20:46)
[2021-05-24] MEDS: AZITHROMYCIN 250 MG TAB (ZITHROMAX) PO SCH (08:33)
[2021-05-24] MEDS: SENNA W/DOCUSATE (SENOKOT S) TABLET PO SCH ×2 (08:34→20:46)
[2021-05-24] MEDS: DIGOXIN 0.125 MG (LANOXIN) TAB PO SCH (08:34)
[2021-05-24] MEDS: PSYLLIUM POWDER (METAMUCIL) 5.8 GM PACKET PO SCH (08:34)
[2021-05-24] MEDS: FUROSEMIDE 20 MG (LASIX) TAB PO SCH (08:34)
[2021-05-24] MEDS: meTOprolol SUCCINATE 100 MG (TOPROL XL) TAB PO SCH (08:34)
[2021-05-24] MEDS: SODIUM CHLORIDE 1 GM TABLET PO SCH ×2 (08:34→20:46)
[2021-05-24] MEDS: AMIODARONE 200 MG (CORDARONE) TAB PO SCH (08:34)
[2021-05-24] MEDS: PANTOPRAZOLE 20 MG TABLET (PROTONIX) PO SCH (08:34)
--- NOTE | 2021-05-24 09:35 | Cardiology Progress Note ---
Subjective Date Seen by Provider: May 24, 2021 Time Seen by Provider: 08:40 Subjective/Events-last exam Patient is in bed, denies any increased dyspnea. Objective-Cardiology Exam Last Set of Vital Signs Vital Signs 05/21/21 05/24/21 05/24/21 16:00 12:00 15:18 Temp 36.1 Pulse 91 Resp 20 B/P (MAP) 131/72 Pulse Ox 97 O2 Delivery High Flow N/C O2 Flow Rate 2.00 FiO2 50 I&O Intake and Output 05/24/21 00:00 Intake Total 1170 ml Output Total 3000 ml Balance -1830 ml Intake Oral 1070 ml IV Total 100 ml Output Urine Total 3000 ml General: Alert, Oriented X3 (Poor recall), Cooperative, No Acute Distress HEENT: Atraumatic Neck: No Thyromegaly Lungs: Other (Crackles and wheezes) Heart: Regular Rate Extremities: No Clubbing, No Cyanosis, No Tenderness/Swelling Skin: No Breakdown, No Significant Lesion Neuro: Normal Speech Psych/Mental Status: Mental Status NL Results Lab Laboratory Tests 05/24/21 05:22 A/P-Cardiology Admission Diagnosis Paroxysmal atrial fibrillation Tachycardia Acute respiratory insufficiency COVID-19 pneumonia Assessment/Plan Paroxysmal atrial fibrillation, rapid ventricular response, HR better controlled after changing Cardizem to CD 360 and increasing Toprol-XL to 100 mg daily [id number] score of 4, yearly risk of stroke without oral anticoagulation is 4%. Maintained on Eliquis Coronary artery disease, reporting history of multiple stents in the past, clinically stable at this time. Continue to monitor Hypertension, controlled, continue to monitor. COVID-19 pneumonia, acute respiratory insufficiency, slowly improving, managed by primary care team. Diabetes mellitus, followed and managed by primary care physician Patient was evaluated with Liliya, I discussed the management plan, reviewed the note and agree with the current plan I made few modification using italic font Patient has a better heart rate control at this time, blood pressure is stable Continue to monitor, no changes are recommended LILIYA VALENTIN May 24, 2021 09:35 MAO WRIGHT MD May 24, 2021 16:07
--- NOTE | 2021-05-24 10:32 | Physical Therapy Daily Note ---
PT Daily Note-Current Subjective Patient in bed pre tx, agrees to PT, has no complaints of pain. Appearance Patient in bed post tx with nurse call, phone, tray, all needs met. Patient had a small pill in her bed, nursing notified, it was not given to the patient to take. Mental Status Patient Orientation: Person, Place, Situation Attachments: Oxygen, Vasquez Catheter Transfers SCALE: Activities may be completed with or without assistive devices. 9-Uamxnyeyoz-dxksbfm completes the activity by him/herself with no assistance from a helper. 5-Set-up or Clean-up Assistance-helper sets up or cleans up; patient completes activity. [place] assists only prior to or following the activity. 4-Supervision or Touching Assistance-helper provides verbal cues and/or touching/steadying and/or contact guard assistance as patient completes activity. Assistance may be provided throughout the activity or intermittently. 3-Partial/Moderate Assistance-helper does LESS THAN HALF the effort. [place] lifts, holds or supports trunk or limbs, but provides less than half the effort. 2-Substantial/Maximal Assistance-helper does MORE THAN HALF the effort. [place] lifts or holds trunk or limbs and provides more than half the effort. 1-Vkfcoudce-weknjs does ALL the effort. Patient does none of the effort to complete the activity. Or, the assistance of 2 or more helpers is required for the patient to complete the activity. If activity was not attempted, code reason: 7-Patient Refused. 9-Not Applicable-not attempted and the patient did not perform the activity before the current illness, exacerbation or injury. 10-Not Attempted due to Environmental Limitations-(lack of equipment, weather restraints, etc.). 88-Not Attempted due to Medical Conditions or Safety Concerns. Roll Left & Right (QC): 3 Sit to Lying (QC): 1 Lying to Sitting/Side of Bed(Q: 1 Patient required assist of 2 for supine <-> sit, she was able to sit for a few minutes and her O2 stayed above 90%, attempted standing with therapist assist but she was not able to do it, layed back down, had to roll from side to side to replace pad and then scoot up, her O2 went down into the mid 80's during this process but came back up quickly with rest. Treatments sitting, rolling, attempted standing Assessment Current Status: Poor Progress patient is very weak and cannot stand at this time PT Short Term Goals Short Term Goals Time Frame: May 29, 2021 Roll Left & Right: 4 Sit to lyin Lying to sitting on side of be: 4 Sit to stand: 4 Chair/lev-kr-wpewf transfer: 4 Toilet transfer: 4 Walk 10 feet: 3 Walk 50 feet with two turns: 3 PT Belt Line Feeder Goals [facility] Goals PT Belt Line Feeder Goals Time Frame: Jun 09, 2021 Roll Left & Right (QC): 5 Sit to Lying (QC): 5 Lying-Sitting on Side/Bed(QC): 5 Sit to Stand (QC): 5 Chair/Iel-ev-Rkdaf Xfer(QC): 5 Toilet Transfer (QC): 5 Car Transfer (QC): 5 Does the Patient Walk: Yes Walk 10 feet (QC): 4 Walk 50ft with 2 Turns (QC): 4 Walk 150 ft (QC): 4 PT Plan Problem List Problem List: Activity Tolerance, Functional Strength, Safety, Balance, Gait, Transfer, Bed Mobility, ROM Treatment/Plan Treatment Plan: Continue Plan of Care Treatment Plan: Bed Mobility, Education, Functional Activity Tiffany, Functional Strength, Group Therapy, Gait, Safety, Therapeutic Exercise, Transfers Treatment Duration: Jul 07, 2021 Frequency: 6 times per week Estimated Hrs Per Day: .25 hour per day Patient and/or Family Agrees t: Yes Safety Risks/Education Patient Education: Correct Positioning, Safety Issues Teaching Recipient: Patient Teaching Methods: Demonstration, Discussion Response to Teaching: Reinforcement Needed Time/GCodes Time In: 1007 Time Out: 1021 Total Billed Treatment Time: 14 Total Billed Treatment 1 visit FA EZ ALBARADO PT May 24, 2021 10:32
--- NOTE | 2021-05-24 11:52 | Occupational Ther Daily Note ---
OT Current Status-Daily Note Subjective Pt denies pain. "Let's get this over with so I can go home." Appearance Returned to supine, all needs within reach. Mental Status/Objective Patient Orientation: Person, Confused Attachments: Vasquez Catheter, IV, Oxygen, Telemetry ADL-Treatment Therapy Code Descriptions/Definitions Functional [place] Measure: 0=Not Assessed/NA 4=Minimal Assistance 1=Total Assistance 5=Supervision or Setup 2=Maximal Assistance 6=Modified [place] 3=Moderate Assistance 7=Complete IndependenceSCALE: Activities may be completed with or without assistive devices. 7-Ztrmnmjjwr-jsmuads completes the activity by him/herself with no assistance from a helper. 5-Set-up or Clean-up Assistance-helper sets up or cleans up; patient completes activity. [place] assists only prior to or following the activity. 4-Supervision or Touching Assistance-helper provides verbal cues and/or touching/steadying and/or contact guard assistance as patient completes activity. Assistance may be provided throughout the activity or intermittently. 3-Partial/Moderate Assistance-helper does LESS THAN HALF the effort. [place] lifts, holds or supports trunk or limbs, but provides less than half the effort. 2-Substantial/Maximal Assistance-helper does MORE THAN HALF the effort. [place] lifts or holds trunk or limbs and provides more than half the effort. 3-Dlqihyipv-eeovzm does ALL the effort. Patient does none of the effort to complete the activity. Or, the assistance of 2 or more helpers is required for the patient to complete the activity. If activity was not attempted, code reason: 7-Patient Refused. 9-Not Applicable-not attempted and the patient did not perform the activity before the current illness, exacerbation or injury. 10-Not Attempted due to Environmental Limitations-(lack of equipment, weather restraints, etc.). 88-Not Attempted due to Medical Conditions or Safety Concerns. Lower Body Dressing (QC): 1 On/Off Footwear: 1 Supine<>sit: Assist x2 this date. Able to tolerate sitting EOB with oxygen between 89-94%. Only able to come to partial standing with max A, little effort from patient. Assist to lay back down. Mod-max a to roll R/L to change linens secondary to blood stain. Desat to mid 80's but recovers quickly with rest. Education OT Patient Education: Correct positioning, Energy conservation, Progress toward Goal/Update tx plan, Purpose of tx/functional activities, Safety issues, Transfer techniques Teaching Recipient: Patient Teaching Methods: Discussion Response to Teaching: Verbalize Understanding, Reinforcement Needed OT Claims Account Specialist Goals Claims Account Specialist Goals Time Frame: Jun 16, 2021 Oral Hygiene (QC): 5 Toileting Hygiene (QC): 4 Shower/Bathe Self (QC): 4 Upper Body Dressing (QC): 4 Lower Body Dressing (QC): 4 On/Off Footwear (QC): 4 1=Demonstrate adherence to instructed precautions during ADL tasks. 2=Patient will verbalize/demonstrate understanding of assistive devices/modifications for ADL. 3=Patient will improve strength/tolerance for activity to enable patient to perform ADL's. OT Education/Plan Problem List/Assessment Assessment: Decreased Activ Tolerance, Decreased Safety Aware, Decreased UE Strength, Dependent Transfers, Impaired Bed Mobility, Impaired Cognition, Im paired Funct Balance, Impaired I ADL's, Impaired Self-Care Skills Discharge Recommendations Plan/Recommendations: Continue POC Treatment Plan/Plan of Care Treatment,Training & Education: Yes Patient would benefit from OT for education, treatment and training to promote independence in ADL's, mobility, safety and/or upper extremity function for ADL's. Plan of Care: ADL Retraining, Functional Mobility, Group Exercise/Act as Ind, UE Funct Exercise/Act Treatment Duration: Jun 16, 2021 Frequency: 3 times per week Estimated Hrs Per Day: .25 hour per day Agreement: Yes Rehab Potential: Fair Time/GCodes Start Time: 10:07 Stop Time: 10:21 Total Time Billed (hr/min): 14 Billed Treatment Time 1 visit Angi Aldrich OT May 24, 2021 11:52
[2021-05-25] MEDS: ACETAMINOPHEN 325 MG TABLET PO PRN ×3 (02:39→23:58)
[2021-05-25] MEDS: RT-ALBUTEROL HFA 8.5 GM INHALER IH SCH ×4 (03:23→22:12)
[2021-05-25] MEDS: inSUlin ASPART (NovoLOG) 1 UNIT/0.01 ML (CHARGE PER UNIT) SC SCH ×4 (05:39→21:09)
--- NOTE | 2021-05-25 05:56 | Progress Note ---
Subjective Date Seen by a Provider: May 25, 2021 Time Seen by a Provider: 11:00 Subjective/Events-last exam Pt having more of a decline HR of [address] Mendes O2 sat is 87% but it dos go up when she changed the pulse-ox on her finger I will try to call the daughter today Constipation reported I updated daughter at 1900 hrs. in-depth conversation Review of Systems General: Fatigue, Malaise Pulmonary: Dyspnea Gastrointestinal: Constipation Neurological: Confusion Objective Exam Last Set of Vital Signs Vital Signs Date Time Temp Pulse Resp B/P (MAP) Pulse Ox O2 Delivery O2 Flow Rate FiO2 05/25/21 03:31 36.6 92 20 126/83 95 High Flow N/C 4.00 05/21/21 16:00 50 Capillary Refill : Less Than 3 Seconds I&O Intake and Output 05/25/21 00:00 Intake Total 1120 ml Output Total 3450 ml Balance -2330 ml Intake Oral 1120 ml Output Urine Total 3450 ml Results Lab Laboratory Tests 05/24/21 12:20: Glucometer 227H 05/24/21 16:44: Glucometer 220H 05/24/21 21:04: Glucometer 176H 05/25/21 05:30: Glucometer 173H Assessment/Plan Assessment/Plan Assess & Plan/Chief Complaint Assessment: Atrial fibrillation with rapid ventricular response status post Cardizem drip with Cardiology consultation Chronic atrial fibrillation maintained on Eliquis for stroke prophylaxis COVID-19 pneumonia 20 days out in a fully vaccinated individual Acute hypoxic respiratory failure on Vapotherm then transitioned to nasal cannula Bacterial pneumonia Dementia Hypothyroidism Hypertension Hyperlipidemia Constipation Plan: Cardiology consult eICU IV antibiotics Oxygen BiPAP Supportive care Oral anticoagulation 05/20/21: Supportive care ICU Cardizem drip Cardiology and EICU appreciated Eliquis 05/21/21: Eliquis Cardizem Cardiology appreciated Slow recovery Prognosis fair 05/22/2021: Transfer to fourth floor Supportive care 05/23/2021: Supportive care Confusion precludes good recovery 05/24/2021: DC isolation tomorrow? Await long term placement 05/25/2021: Laxatives Awaiting long term Diagnosis/Problems Diagnosis/Problems (1) Atrial fibrillation with rapid ventricular response Clinical Quality Measures Admission Status Admission Dx Assessment: Atrial fibrillation with rapid ventricular response Chronic atrial fibrillation maintained on Eliquis for stroke prophylaxis COVID-19 pneumonia 12 days out in a fully vaccinated individual Acute hypoxic respiratory failure Bacterial pneumonia Dementia Hypothyroidism Hypertension Hyperlipidemia Plan: Cardiology consult eICU IV antibiotics Oxygen BiPAP Supportive care Oral anticoagulation PAOLA HINDS DO May 25, 2021 05:56
[2021-05-25 06:51] LABS: BASOPHILS % (AUTO) 0 % (0-10); EOSINOPHILS % (AUTO) 0 % (0-10); HEMATOCRIT 40 % (35-52); HEMOGLOBIN 13.2 g/dL (11.5-16.0); LYMPHOCYTES # (AUTO) 0.5 10^3/uL (1.0-4.0); LYMPHOCYTES % (AUTO) 3 % (12-44); MEAN CORPUSCULAR HEMOGLOBIN 31 pg (25-34); MEAN CORPUSCULAR HGB CONC 33 g/dL (32-36); MEAN CORPUSCULAR VOLUME 93 fL (80-99); MEAN PLATELET VOLUME 8.3 fL (9.0-12.2); MONOCYTES # (AUTO) 1.6 10^3/uL (0.0-1.0); MONOCYTES % (AUTO) 8 % (0-12); NEUTROPHILS # (AUTO) 18.1 10^3/uL (1.8-7.8); NEUTROPHILS % (AUTO) 88 % (42-75); PLATELET COUNT 316 10^3/uL (130-400); WHITE BLOOD COUNT 20.7 10^3/uL (4.3-11.0)
[2021-05-25 07:05] LABS: ALBUMIN 2.8 GM/DL (3.2-4.5); POTASSIUM 4.9 MMOL/L (3.6-5.0)
[2021-05-25 07:07] LABS: CALCIUM 8.5 MG/DL (8.5-10.1)
[2021-05-25 07:08] LABS: TOTAL PROTEIN 6.2 GM/DL (6.4-8.2)
[2021-05-25 07:10] LABS: BILIRUBIN,TOTAL 0.4 MG/DL (0.1-1.0)
[2021-05-25 07:11] LABS: CREATININE SERUM 0.76 MG/DL (0.60-1.30)
--- NOTE | 2021-05-25 08:36 | Cardiology Progress Note ---
Subjective Date Seen by Provider: May 25, 2021 Time Seen by Provider: 08:34 Subjective/Events-last exam Patient is in bed, still in isolation due to COVID-19 I did not examine the patient today, I visited with her nurse and reviewed her lab Objective-Cardiology Exam Last Set of Vital Signs Vital Signs 05/21/21 05/25/21 16:00 07:30 Temp 35.6 Pulse 105 Resp 22 B/P (MAP) 151/82 Pulse Ox 94 O2 Delivery High Flow N/C O2 Flow Rate 4.00 FiO2 50 I&O Intake and Output 05/25/21 00:00 Intake Total 1120 ml Output Total 3450 ml Balance -2330 ml Intake Oral 1120 ml Output Urine Total 3450 ml General: Alert, No Acute Distress Neck: No Thyromegaly Heart: Regular Rate Neuro: Normal Speech Psych/Mental Status: Mental Status NL Results Lab Laboratory Tests 05/25/21 06:41 A/P-Cardiology Admission Diagnosis Paroxysmal atrial fibrillation Tachycardia Acute respiratory insufficiency COVID-19 pneumonia Assessment/Plan Paroxysmal atrial fibrillation, rapid ventricular response, HR better controlled after changing Cardizem to CD 360 and increasing Toprol-XL to 100 mg daily, continue to monitor heart rate. No changes are recommended [id number] score of 4, yearly risk of stroke without oral anticoagulation is 4%. Maintained on Eliquis Coronary artery disease, reporting history of multiple stents in the past, clinically stable at this time. Continue to monitor Hypertension, controlled, continue to monitor. COVID-19 pneumonia, acute respiratory insufficiency, improving, followed and managed by primary care team Diabetes mellitus, followed and managed by primary care physician MAO WRIGHT MD May 25, 2021 08:36
[2021-05-25] MEDS: SENNA W/DOCUSATE (SENOKOT S) TABLET PO SCH ×2 (08:48→21:10)
[2021-05-25] MEDS: meTOprolol SUCCINATE 100 MG (TOPROL XL) TAB PO SCH (08:48)
[2021-05-25] MEDS: ROSUVASTATIN 20 MG (CRESTOR) TABLET PO SCH (08:48)
[2021-05-25] MEDS: DIGOXIN 0.125 MG (LANOXIN) TAB PO SCH (08:48)
[2021-05-25] MEDS: AMIODARONE 200 MG (CORDARONE) TAB PO SCH (08:49)
[2021-05-25] MEDS: APIXABAN 5 MG (ELIQUIS) TABLET PO SCH ×2 (08:49→21:10)
[2021-05-25] MEDS: SODIUM CHLORIDE 1 GM TABLET PO SCH ×2 (08:49→21:09)
[2021-05-25] MEDS: PSYLLIUM POWDER (METAMUCIL) 5.8 GM PACKET PO SCH (08:49)
[2021-05-25] MEDS: SERTRALINE 50 MG (ZOLOFT) TABLET PO SCH (08:49)
[2021-05-25] MEDS: PANTOPRAZOLE 20 MG TABLET (PROTONIX) PO SCH (08:49)
[2021-05-25] MEDS: FUROSEMIDE 20 MG (LASIX) TAB PO SCH (08:49)
--- NOTE | 2021-05-25 10:37 | Physical Therapy Daily Note ---
PT Daily Note-Current Subjective Patient sitting EOB pre tx, has already been working with OT, has no complaints of pain. Appearance Patient in bed post tx with nurse call, phone, tray, all needs met. Mental Status Patient Orientation: Person, Place, Situation Attachments: Oxygen, Vasquez Catheter Transfers SCALE: Activities may be completed with or without assistive devices. 9-Xptfgldjrz-yxzfnlh completes the activity by him/herself with no assistance from a helper. 5-Set-up or Clean-up Assistance-helper sets up or cleans up; patient completes activity. [place] assists only prior to or following the activity. 4-Supervision or Touching Assistance-helper provides verbal cues and/or touching/steadying and/or contact guard assistance as patient completes activity. Assistance may be provided throughout the activity or intermittently. 3-Partial/Moderate Assistance-helper does LESS THAN HALF the effort. [place] lifts, holds or supports trunk or limbs, but provides less than half the effort. 2-Substantial/Maximal Assistance-helper does MORE THAN HALF the effort. [place] lifts or holds trunk or limbs and provides more than half the effort. 0-Cnwaogerv-dazbvb does ALL the effort. Patient does none of the effort to complete the activity. Or, the assistance of 2 or more helpers is required for the patient to complete the activity. If activity was not attempted, code reason: 7-Patient Refused. 9-Not Applicable-not attempted and the patient did not perform the activity before the current illness, exacerbation or injury. 10-Not Attempted due to Environmental Limitations-(lack of equipment, weather restraints, etc.). 88-Not Attempted due to Medical Conditions or Safety Concerns. Sit to Lying (QC): 2 Sit to Stand (QC): 1 Patient stands twice with assist of 2 using a rolling walker and pushing from the bed. She can almost but not quite stand completely, stands for only a few seconds each time, max assist for sit to supine, and then needs assist of 2 to scoot up in the bed. Treatments standing, bed mobility Assessment Current Status: Fair Progress improved standing using a rolling walker but still needs assist of 2 PT Short Term Goals Short Term Goals Time Frame: May 29, 2021 Roll Left & Right: 4 Sit to lyin Lying to sitting on side of be: 4 Sit to stand: 4 Chair/uac-gw-hsjgt transfer: 4 Toilet transfer: 4 Walk 10 feet: 3 Walk 50 feet with two turns: 3 PT Buyer Agent Goals Long-Term Goals PT Long-Term Goals Time Frame: Jun 09, 2021 Roll Left & Right (QC): 5 Sit to Lying (QC): 5 Lying-Sitting on Side/Bed(QC): 5 Sit to Stand (QC): 5 Chair/Xzx-al-Yhqpb Xfer(QC): 5 Toilet Transfer (QC): 5 Car Transfer (QC): 5 Does the Patient Walk: Yes Walk 10 feet (QC): 4 Walk 50ft with 2 Turns (QC): 4 Walk 150 ft (QC): 4 PT Plan Problem List Problem List: Activity Tolerance, Functional Strength, Safety, Balance, Gait, Transfer, Bed Mobility, ROM Treatment/Plan Treatment Plan: Continue Plan of Care Treatment Plan: Bed Mobility, Education, Functional Activity Tiffany, Functional Strength, Group Therapy, Gait, Safety, Therapeutic Exercise, Transfers Treatment Duration: Jul 07, 2021 Frequency: 6 times per week Estimated Hrs Per Day: .25 hour per day Patient and/or Family Agrees t: Yes Safety Risks/Education Patient Education: Correct Positioning, Safety Issues Teaching Recipient: Patient Teaching Methods: Demonstration, Discussion Response to Teaching: Reinforcement Needed Time/GCodes Time In: 1010 Time Out: 1020 Total Billed Treatment Time: 10 Total Billed Treatment 1 visit FA EZ BAIG PT May 25, 2021 10:37
--- NOTE | 2021-05-25 11:07 | Occupational Ther Daily Note ---
OT Current Status-Daily Note Subjective As OT walked through the door, pt states "ok, lets do this." Appearance Returned to supine in bed, all needs within reach. Mental Status/Objective Attachments: Vasquez Catheter, IV, Oxygen, Telemetry ADL-Treatment Therapy Code Descriptions/Definitions Functional [place] Measure: 0=Not Assessed/NA 4=Minimal Assistance 1=Total Assistance 5=Supervision or Setup 2=Maximal Assistance 6=Modified [place] 3=Moderate Assistance 7=Complete IndependenceSCALE: Activities may be completed with or without assistive devices. 7-Wmyjvdxodt-gtxgkoy completes the activity by him/herself with no assistance from a helper. 5-Set-up or Clean-up Assistance-helper sets up or cleans up; patient completes activity. [place] assists only prior to or following the activity. 4-Supervision or Touching Assistance-helper provides verbal cues and/or touching/steadying and/or contact guard assistance as patient completes activity. Assistance may be provided throughout the activity or intermittently. 3-Partial/Moderate Assistance-helper does LESS THAN HALF the effort. [place] lifts, holds or supports trunk or limbs, but provides less than half the effort. 2-Substantial/Maximal Assistance-helper does MORE THAN HALF the effort. [place] lifts or holds trunk or limbs and provides more than half the effort. 7-Ucfjqathj-qjzgxg does ALL the effort. Patient does none of the effort to complete the activity. Or, the assistance of 2 or more helpers is required for the patient to complete the activity. If activity was not attempted, code reason: 7-Patient Refused. 9-Not Applicable-not attempted and the patient did not perform the activity before the current illness, exacerbation or injury. 10-Not Attempted due to Environmental Limitations-(lack of equipment, weather restraints, etc.). 88-Not Attempted due to Medical Conditions or Safety Concerns. Lower Body Dressing (QC): 1 On/Off Footwear: 1 Toileting Hygiene (QC): 1 Toilet Transfer (QC): 1 Supine>sit: Max a x1. C/o lightheadedness upon sitting up, resolves with rest. Pt stood x2 with Assist of 2 and use of walker. She is unable to come to full upright and appears to be slightly resistant. Only able to tolerate for a few seconds before pushing self back towards the bed. Returns to supine with Max a and is dependent for supine scoot to HOB. Education OT Patient Education: Correct positioning, Disease process, Progress toward Goal/Update tx plan, Purpose of tx/functional activities, Transfer techniques Teaching Recipient: Patient Teaching Methods: Discussion Response to Teaching: Reinforcement Needed OT Care Home Goals Investigator Fraud Goals Time Frame: Jun 16, 2021 Oral Hygiene (QC): 5 Toileting Hygiene (QC): 4 Shower/Bathe Self (QC): 4 Upper Body Dressing (QC): 4 Lower Body Dressing (QC): 4 On/Off Footwear (QC): 4 1=Demonstrate adherence to instructed precautions during ADL tasks. 2=Patient will verbalize/demonstrate understanding of assistive devices/modifications for ADL. 3=Patient will improve strength/tolerance for activity to enable patient to perform ADL's. OT Education/Plan Problem List/Assessment Assessment: Decreased Activ Tolerance, Decreased Safety Aware, Decreased UE Strength, Dependent Transfers, Impaired Bed Mobility, Impaired Cognition, Impaired Funct Balance, Impaired I ADL's, Impaired Self-Care Skills Discharge Recommendations Plan/Recommendations: Continue POC Therapy Discharge Recommendati: Post Acute OT Treatment Plan/Plan of Care Treatment,Training & Education: Yes Patient would benefit from OT for education, treatment and training to promote independence in ADL's, mobility, safety and/or upper extremity function for ADL's. Plan of Care: ADL Retraining, Functional Mobility, Group Exercise/Act as Ind, UE Funct Exercise/Act Treatment Duration: Jun 16, 2021 Frequency: 3 times per week Estimated Hrs Per Day: .25 hour per day Agreement: Yes Rehab Potential: Fair Time/GCodes Start Time: 10:08 Stop Time: 10:20 Total Time Billed (hr/min): 12 Billed Treatment Time 1 visit Angi Aldrich OT May 25, 2021 11:07
[2021-05-25] MEDS: meTOprolol 5 MG/5 ML (LOPRESSOR) VIAL IV PRN (12:20)
[2021-05-25] MEDS ORDERED: BISACODYL 10 MG SUPP (DULCOLAX) PR PRN (17:15)
[2021-05-25] MEDS ORDERED: SENNA W/DOCUSATE (SENOKOT S) TABLET PO SCH (17:15)
[2021-05-25] MEDS ORDERED: polyethylene glycoL POWDER 17 GM (MIRALAX) PACK PO SCH (17:15)
[2021-05-25] MEDS: DOCUSATE SODIUM 100 MG (COLACE) CAP PO SCH ×2 (18:04→21:10)
[2021-05-25] MEDS: LACTULOSE SYRUP 10GM/15ML (ENULOSE) 30ML UDC PO SCH ×2 (18:04→21:10)
[2021-05-25] MEDS: polyethylene glycoL POWDER 17 GM (MIRALAX) PACK PO SCH (21:10)
[2021-05-26] MEDS: RT-ALBUTEROL HFA 8.5 GM INHALER IH SCH ×4 (02:53→21:48)
[2021-05-26] MEDS: inSUlin ASPART (NovoLOG) 1 UNIT/0.01 ML (CHARGE PER UNIT) SC SCH ×4 (05:08→21:16)
--- NOTE | 2021-05-26 05:51 | PM&R Progress Note ---
Subjective HPI/CC On Admission Date Seen by Provider: May 26, 2021 Objective Exam Vital Signs Vital Signs Date Time Temp Pulse Resp B/P (MAP) Pulse Ox O2 Delivery O2 Flow Rate FiO2 05/26/21 03:34 36.5 99 20 130/84 94 High Flow N/C 2.00 05/21/21 16:00 50 Capillary Refill : Less Than 3 Seconds General Appearance: No Apparent Distress, WD/WN, Anxious, Chronically ill, Mild Distress, Thin HEENT: PERRL/EOMI, Normal ENT Inspection, Pharynx Normal Neck: Full Range of Motion, Normal Inspection, Non Tender, Supple, Carotid Bruit Respiratory: Chest Non Tender, Lungs Clear, No Accessory Muscle Use, No Respiratory Distress, Decreased Breath Sounds Cardiovascular: No Edema, No Gallop, No JVD, No Murmur, Normal Peripheral Pulses, Irregularly Irregular, Tachycardia Gastrointestinal: Normal Bowel Sounds, No Organomegaly, No Pulsatile Mass, Non Tender, Soft Back: Normal Inspection, No CVA Tenderness, No Vertebral Tenderness Extremity: Normal Capillary Refill, Normal Inspection, Normal Range of Motion, Non Tender, No Calf Tenderness, No Pedal Edema Neurologic/Psychiatric: Alert, Oriented x3, No Motor/Sensory Deficits, Normal Mood/Affect, Depressed Affect, Disoriented Skin: Normal Color, Warm/Dry Lymphatic: No Adenopathy Results/Procedures Lab Laboratory Tests 05/25/21 06:41 Patient resulted labs reviewed. FIM Transfers Therapy Code Descriptions/Definitions Functional [place] Measure: 0=Not Assessed/NA 4=Minimal Assistance 1=Total Assistance 5=Supervision or Setup 2=Maximal Assistance 6=Modified [place] 3=Moderate Assistance 7=Complete IndependenceSCALE: Activities may be completed with or without assistive devices. 7-Rdbivbmhtd-apvtami completes the activity by him/herself with no assistance from a helper. 5-Set-up or Clean-up Assistance-helper sets up or cleans up; patient completes activity. [place] assists only prior to or following the activity. 4-Supervision or Touching Assistance-helper provides verbal cues and/or touching/steadying and/or contact guard assistance as patient completes activity. Assistance may be provided throughout the activity or intermittently. 3-Partial/Moderate Assistance-helper does LESS THAN HALF the effort. [place] lifts, holds or supports trunk or limbs, but provides less than half the effort. 2-Substantial/Maximal Assistance-helper does MORE THAN HALF the effort. [place] lifts or holds trunk or limbs and provides more than half the effort. 3-Xwtewqlyc-msvtxh does ALL the effort. Patient does none of the effort to complete the activity. Or, the assistance of 2 or more helpers is required for the patient to complete the activity. If activity was not attempted, code reason: 7-Patient Refused. 9-Not Applicable-not attempted and the patient did not perform the activity before the current illness, exacerbation or injury. 10-Not Attempted due to Environmental Limitations-(lack of equipment, weather restraints, etc.). 88-Not Attempted due to Medical Conditions or Safety Concerns. Roll Left to Right (QC): 3 Sit to Lying (QC): 2 Sit to Stand (QC): 1 Gait Training Does the Patient Walk?: No and Walking Goal IS indicated Walk 10 feet (QC): 88 ADL-Treatment Eating (QC): 4 Lower Body Dressing (QC): 1 On/Off Footwear (QC): 1 Toileting Hygiene (QC): 1 Toilet Transfer (QC): 1 Assessment/Plan Assessment and Plan (1) Atrial fibrillation with rapid ventricular response Critical Care Critical Care: Critically Ill Patient PAOLA HINDS DO May 26, 2021 05:50
--- NOTE | 2021-05-26 05:51 | Progress Note ---
Subjective Date Seen by a Provider: May 26, 2021 Time Seen by a Provider: 10:00 Subjective/Events-last exam Pt doing well Up with three person assist to the chair Vasquez catheter still maintained Going Saturday to the shelter updated daughter yesterday Hematuria noted so will send UA down for urinalysis and urology will be consulted Dulcolax suppository will be given since no BM yet Update: Patient cannot contract shelter until 06/02/2021 Review of Systems General: Fatigue, Malaise Neurological: Confusion Objective Exam Last Set of Vital Signs Vital Signs Date Time Temp Pulse Resp B/P (MAP) Pulse Ox O2 Delivery O2 Flow Rate FiO2 05/26/21 03:34 36.5 99 20 130/84 94 High Flow N/C 2.00 05/21/21 16:00 50 Capillary Refill : Less Than 3 Seconds I&O Intake and Output 05/26/21 00:00 Intake Total 1040 ml Output Total 3150 ml Balance -2110 ml Intake Oral 1040 ml Output Urine Total 3150 ml General: Alert, Oriented X3, Cooperative, No Acute Distress Lungs: Clear to Auscultation Heart: Regular Rate Psych/Mental Status: Mood NL (Flat) Results Lab Laboratory Tests 05/25/21 06:41: White Blood Count 20.7H, Red Blood Count 4.32, Hemoglobin 13.2, Hematocrit 40, Mean Corpuscular Volume 93, Mean Corpuscular Hemoglobin 31, Mean Corpuscular Hemoglobin Concent 33, Red Cell Distribution Width 15.3H, Platelet Count 316, Mean Platelet Volume 8.3L, Immature Granulocyte % (Auto) 2, Neutrophils (%) (Auto) 88H, Lymphocytes (%) (Auto) 3L, Monocytes (%) (Auto) 8, Eosinophils (%) (Auto) 0, Basophils (%) (Auto) 0, Neutrophils # (Auto) 18.1H, Lymphocytes # (Auto) 0.5L, Monocytes # (Auto) 1.6H, Eosinophils # (Auto) 0.0, Basophils # (Auto) 0.0, Immature Granulocyte # (Auto) 0.4H, Sodium Level 130L, Potassium Level 4.9, Chloride Level 94L, Carbon Dioxide Level 27, Anion Gap 9, Blood Urea Nitrogen 18, Creatinine 0.76, Estimat Glomerular Filtration Rate 73, BUN/Creatinine Ratio 24, Glucose Level 178H, Calcium Level 8.5, Corrected Calcium 9.5, Total Bilirubin 0.4, Aspartate Amino Transf (AST/SGOT) 14, Alanine Aminotransferase (ALT/SGPT) 23, Alkaline Phosphatase 65, Total Protein 6.2L, Albumin 2.8L 05/25/21 10:05: Glucometer 167H 05/25/21 16:09: Glucometer 217H 05/25/21 20:55: Glucometer 207H 05/26/21 05:04: Glucometer 122H Assessment/Plan Assessment/Plan Assess & Plan/Chief Complaint Assessment: Atrial fibrillation with rapid ventricular response status post Cardizem drip with Cardiology consultation Chronic atrial fibrillation maintained on Eliquis for stroke prophylaxis COVID-19 pneumonia 20 days out in a fully vaccinated individual Acute hypoxic respiratory failure on Vapotherm then transitioned to nasal cannula Bacterial pneumonia Dementia Hypothyroidism Hypertension Hyperlipidemia Constipation Plan: Cardiology consult eICU IV antibiotics Oxygen BiPAP Supportive care Oral anticoagulation 05/20/21: Supportive care ICU Cardizem drip Cardiology and EICU appreciated Eliquis 05/21/21: Eliquis Cardizem Cardiology appreciated Slow recovery Prognosis fair 05/22/2021: Transfer to fourth floor Supportive care 05/23/2021: Supportive care Confusion precludes good recovery 05/24/2021: DC isolation tomorrow? Await shelter placement 05/25/2021: Laxatives Awaiting shelter 05/26/2021: Continue therapy Diagnosis/Problems Diagnosis/Problems (1) Atrial fibrillation with rapid ventricular response Clinical Quality Measures Admission Status Admission Dx Assessment: Atrial fibrillation with rapid ventricular response Chronic atrial fibrillation maintained on Eliquis for stroke prophylaxis COVID-19 pneumonia 12 days out in a fully vaccinated individual Acute hypoxic respiratory failure Bacterial pneumonia Dementia Hypothyroidism Hypertension Hyperlipidemia Plan: Cardiology consult eICU IV antibiotics Oxygen BiPAP Supportive care Oral anticoagulation PAOLA HINDS DO May 26, 2021 05:51
[2021-05-26] MEDS: ACETAMINOPHEN 325 MG TABLET PO PRN ×3 (05:53→17:08)
[2021-05-26 06:23] LABS: BASOPHILS # (AUTO) 0.1 10^3/uL (0.0-0.1); BASOPHILS % (AUTO) 0 % (0-10); EOSINOPHILS % (AUTO) 0 % (0-10); HEMATOCRIT 44 % (35-52); HEMOGLOBIN 14.2 g/dL (11.5-16.0); LYMPHOCYTES # (AUTO) 1.1 10^3/uL (1.0-4.0); LYMPHOCYTES % (AUTO) 5 % (12-44); MEAN CORPUSCULAR HEMOGLOBIN 30 pg (25-34); MEAN CORPUSCULAR HGB CONC 32 g/dL (32-36); MEAN CORPUSCULAR VOLUME 92 fL (80-99); MEAN PLATELET VOLUME 8.3 fL (9.0-12.2); MONOCYTES # (AUTO) 2.1 10^3/uL (0.0-1.0); MONOCYTES % (AUTO) 10 % (0-12); NEUTROPHILS # (AUTO) 17.4 10^3/uL (1.8-7.8); NEUTROPHILS % (AUTO) 81 % (42-75); PLATELET COUNT 316 10^3/uL (130-400); WHITE BLOOD COUNT 21.5 10^3/uL (4.3-11.0)
[2021-05-26 06:47] LABS: POTASSIUM 4.9 MMOL/L (3.6-5.0)
[2021-05-26 06:48] LABS: CALCIUM 8.6 MG/DL (8.5-10.1)
[2021-05-26 06:49] LABS: TOTAL PROTEIN 6.7 GM/DL (6.4-8.2)
[2021-05-26 06:51] LABS: BILIRUBIN,TOTAL 0.6 MG/DL (0.1-1.0)
[2021-05-26 06:53] LABS: CREATININE SERUM 0.7 MG/DL (0.60-1.30)
--- NOTE | 2021-05-26 08:17 | Diagnostic Imaging Report ---
EXAMINATION: Chest radiograph, portable AP view. DATE: 05/26/2021 6:36 AM INDICATION: 80-year-old female, history of COVID 19 infection. Follow-up exam. COMPARISON: May 19, 2021. FINDINGS: Heart size and mediastinal contours are unchanged. There is no identified pneumothorax. There is nonspecific left basilar airspace consolidation. There are bilateral interstitial and/or alveolar opacities. IMPRESSION: 1. Bilateral interstitial and/or alveolar opacities with nonspecific left basilar airspace consolidation with essentially unchanged appearance since the comparison study. Report was faxed to [facility] Infection Control by magali at 8:18am. Dictated by: Dictated on workstation # [id number]
[2021-05-26] MEDS: FUROSEMIDE 20 MG (LASIX) TAB PO SCH (08:36)
[2021-05-26] MEDS: AMIODARONE 200 MG (CORDARONE) TAB PO SCH (08:36)
[2021-05-26] MEDS: SERTRALINE 50 MG (ZOLOFT) TABLET PO SCH (08:36)
[2021-05-26] MEDS: polyethylene glycoL POWDER 17 GM (MIRALAX) PACK PO SCH ×2 (08:37→21:19)
[2021-05-26] MEDS: ROSUVASTATIN 20 MG (CRESTOR) TABLET PO SCH (08:37)
[2021-05-26] MEDS: DOCUSATE SODIUM 100 MG (COLACE) CAP PO SCH ×2 (08:37→21:15)
[2021-05-26] MEDS: meTOprolol SUCCINATE 100 MG (TOPROL XL) TAB PO SCH (08:37)
[2021-05-26] MEDS: LACTULOSE SYRUP 10GM/15ML (ENULOSE) 30ML UDC PO SCH ×2 (08:37→21:16)
[2021-05-26] MEDS: DIGOXIN 0.125 MG (LANOXIN) TAB PO SCH (08:42)
[2021-05-26] MEDS: PANTOPRAZOLE 20 MG TABLET (PROTONIX) PO SCH (08:42)
[2021-05-26] MEDS: SODIUM CHLORIDE 1 GM TABLET PO SCH ×2 (08:43→21:19)
[2021-05-26] MEDS: SENNA W/DOCUSATE (SENOKOT S) TABLET PO SCH ×2 (08:43→21:15)
[2021-05-26] MEDS: PSYLLIUM POWDER (METAMUCIL) 5.8 GM PACKET PO SCH (08:45)
--- NOTE | 2021-05-26 10:02 | Physical Therapy Daily Note ---
PT Daily Note-Current Subjective Patient in bed pre tx, agrees reluctantly to PT, voices no complaints of pain. Appearance Patient in recliner post tx with nurse call, phone, tray, all needs met. Mental Status Patient Orientation: Person, Place, Situation Attachments: Oxygen, Vasquez Catheter Transfers SCALE: Activities may be completed with or without assistive devices. 7-Ppjathjeim-zddszpv completes the activity by him/herself with no assistance from a helper. 5-Set-up or Clean-up Assistance-helper sets up or cleans up; patient completes activity. [place] assists only prior to or following the activity. 4-Supervision or Touching Assistance-helper provides verbal cues and/or touching/steadying and/or contact guard assistance as patient completes activity. Assistance may be provided throughout the activity or intermittently. 3-Partial/Moderate Assistance-helper does LESS THAN HALF the effort. [place] lifts, holds or supports trunk or limbs, but provides less than half the effort. 2-Substantial/Maximal Assistance-helper does MORE THAN HALF the effort. [place] lifts or holds trunk or limbs and provides more than half the effort. 4-Uyzqdxiha-yojlod does ALL the effort. Patient does none of the effort to complete the activity. Or, the assistance of 2 or more helpers is required for the patient to complete the activity. If activity was not attempted, code reason: 7-Patient Refused. 9-Not Applicable-not attempted and the patient did not perform the activity before the current illness, exacerbation or injury. 10-Not Attempted due to Environmental Limitations-(lack of equipment, weather restraints, etc.). 88-Not Attempted due to Medical Conditions or Safety Concerns. Roll Left & Right (QC): 3 Lying to Sitting/Side of Bed(Q: 3 Sit to Stand (QC): 2 Chair/Amc-qn-Fachb Xfer(QC): 2 Exercises Seated Therapy Exercises: Ankle pumps, Long arc quads Seated Reps: 20 Treatments bed mobility and transfers, LE strengthening Assessment Current Status: Poor Progress I believe this is patient's first transfer out of bed. She is in the recliner and NOT happy about it but agrees to it after explaining to patient that it is better for her lungs. PT Short Term Goals Short Term Goals Time Frame: May 29, 2021 Roll Left & Right: 4 Sit to lyin Lying to sitting on side of be: 4 Sit to stand: 4 Chair/rtr-nv-jijzd transfer: 4 Toilet transfer: 4 Walk 10 feet: 3 Walk 50 feet with two turns: 3 PT Skilled Nursing Goals Skilled Nursing Goals PT Skilled Nursing Goals Time Frame: Jun 09, 2021 Roll Left & Right (QC): 5 Sit to Lying (QC): 5 Lying-Sitting on Side/Bed(QC): 5 Sit to Stand (QC): 5 Chair/Efc-gz-Csbkk Xfer(QC): 5 Toilet Transfer (QC): 5 Car Transfer (QC): 5 Does the Patient Walk: Yes Walk 10 feet (QC): 4 Walk 50ft with 2 Turns (QC): 4 Walk 150 ft (QC): 4 PT Plan Problem List Problem List: Activity Tolerance, Functional Strength, Safety, Balance, Gait, Transfer, Bed Mobility, ROM Treatment/Plan Treatment Plan: Continue Plan of Care Treatment Plan: Bed Mobility, Education, Functional Activity Tiffany, Functional Strength, Group Therapy, Gait, Safety, Therapeutic Exercise, Transfers Treatment Duration: Jul 07, 2021 Frequency: 6 times per week Estimated Hrs Per Day: .25 hour per day Patient and/or Family Agrees t: Yes Safety Risks/Education Patient Education: Transfer Techniques, Correct Positioning, Safety Issues Teaching Recipient: Patient Teaching Methods: Demonstration, Discussion Response to Teaching: Reinforcement Needed Time/GCodes Time In: 933 Time Out: 947 Total Billed Treatment Time: 14 Total Billed Treatment 1 visit FA EZ ALBARADO PT May 26, 2021 10:02
--- NOTE | 2021-05-26 10:34 | Occupational Ther Daily Note ---
OT Current Status-Daily Note Subjective Pt verbalizes wanting to get back into bed, despite encouragement to remain upright. Pt had only been in chair for ~20 minutes prior to OT arrival. Appearance Supine in bed, all needs within reach. Mental Status/Objective Patient Orientation: Person, Confused Attachments: Vasquez Catheter, IV, Oxygen, Telemetry ADL-Treatment Therapy Code Descriptions/Definitions Functional [place] Measure: 0=Not Assessed/NA 4=Minimal Assistance 1=Total Assistance 5=Supervision or Setup 2=Maximal Assistance 6=Modified [place] 3=Moderate Assistance 7=Complete IndependenceSCALE: Activities may be completed with or without assistive devices. 8-Aslhewsvyr-ffraeuj completes the activity by him/herself with no assistance from a helper. 5-Set-up or Clean-up Assistance-helper sets up or cleans up; patient completes activity. [place] assists only prior to or following the activity. 4-Supervision or Touching Assistance-helper provides verbal cues and/or touching/steadying and/or contact guard assistance as patient completes activity. Assistance may be provided throughout the activity or intermittently. 3-Partial/Moderate Assistance-helper does LESS THAN HALF the effort. [place] lifts, holds or supports trunk or limbs, but provides less than half the effort. 2-Substantial/Maximal Assistance-helper does MORE THAN HALF the effort. [place] lifts or holds trunk or limbs and provides more than half the effort. 0-Qtcplqlev-tcngoi does ALL the effort. Patient does none of the effort to complete the activity. Or, the assistance of 2 or more helpers is required for the patient to complete the activity. If activity was not attempted, code reason: 7-Patient Refused. 9-Not Applicable-not attempted and the patient did not perform the activity before the current illness, exacerbation or injury. 10-Not Attempted due to Environmental Limitations-(lack of equipment, weather restraints, etc.). 88-Not Attempted due to Medical Conditions or Safety Concerns. Other Treatment At OT arrival, 2 PRINTING TABLE HAND's in room reporting that patient requests to return to bed. OT discussed that patient had only been sitting in chair for short time and that it would benefit her to sit longer. Pt refusing. Dep x2 to stand/pivot to bed. Sit>Supine: dependent. Oxygen remaining at 94% with activity. HR: 121 bpm, yet pt appears anxious about falling. Pt refusing any further treatment. Education OT Patient Education: Correct positioning, Disease process, Purpose of tx/functional activities, Safety issues, Transfer techniques Teaching Recipient: Patient Teaching Methods: Discussion Response to Teaching: Unable to Comprehend, Reinforcement Needed OT Customer Experience Consultant Goals [facility] Goals Time Frame: Jun 16, 2021 Oral Hygiene (QC): 5 Toileting Hygiene (QC): 4 Shower/Bathe Self (QC): 4 Upper Body Dressing (QC): 4 Lower Body Dressing (QC): 4 On/Off Footwear (QC): 4 1=Demonstrate adherence to instructed precautions during ADL tasks. 2=Patient will verbalize/demonstrate understanding of assistive devices/modifications for ADL. 3=Patient will improve strength/tolerance for activity to enable patient to perform ADL's. OT Education/Plan Problem List/Assessment Assessment: Decreased Activ Tolerance, Decreased Safety Aware, Decreased UE Strength, Dependent Transfers, Impaired Bed Mobility, Impaired Cognition, Impaired Funct Balance, Impaired I ADL's, Impaired Self-Care Skills Discharge Recommendations Plan/Recommendations: Continue POC Therapy Discharge Recommendati: Post Acute OT Treatment Plan/Plan of Care Treatment,Training & Education: Yes Patient would benefit from OT for education, treatment and training to promote independence in ADL's, mobility, safety and/or upper extremity function for ADL's. Plan of Care: ADL Retraining, Functional Mobility, Group Exercise/Act as Ind, UE Funct Exercise/Act Treatment Duration: Jun 16, 2021 Frequency: 3 times per week Estimated Hrs Per Day: .25 hour per day Agreement: Yes Rehab Potential: Fair Time/GCodes Start Time: 10:15 Stop Time: 10:25 Total Time Billed (hr/min): 10 Billed Treatment Time 1 visit Angi Aldrich OT May 26, 2021 10:34
[2021-05-26] MEDS ORDERED: BISACODYL 10 MG SUPP (DULCOLAX) PR ONE (11:00)
--- NOTE | 2021-05-26 14:23 | CONSULTATION REPORT ---
DATE OF SERVICE: 05/26/2021 ATTENDING PHYSICIAN: Dr. Pham. SUMMARY: An 80-year-old white lady admitted with COVID, had a Vasquez catheter. There was some tinged urine last evening, but the patient has been tugging on the catheter and she is on Eliquis and this morning, the urine is clear. Most information obtained from the nursing staff. The patient was asleep and I was told she is not a great historian either. IMPRESSION: Gross hematuria, most probably secondary to catheter. RECOMMENDATIONS: Observe. Increase fluid. We will watch and manage accordingly. Job ID: [id number] DocumentID: [id number] Dictated Date: 05/26/2021 12:11:41 Manager [place] Date: 05/26/2021 14:21:38 Dictated By: NAYANA GANNON MD
[2021-05-26 15:46] VITALS: BP 115/76
[2021-05-26] MEDS: MELATONIN 3 MG TABLET PO PRN (21:15)
[2021-05-26] MEDS: HYDROcodone/APAP 5 MG/325 MG (LORTAB) TAB PO PRN (21:15)
[2021-05-27] MEDS: RT-ALBUTEROL HFA 8.5 GM INHALER IH SCH ×4 (03:14→21:43)
[2021-05-27] MEDS: ACETAMINOPHEN 325 MG TABLET PO PRN ×3 (04:29→16:42)
[2021-05-27 06:45] LABS: BASOPHILS % (AUTO) 0 % (0-10); EOSINOPHILS % (AUTO) 0 % (0-10); HEMATOCRIT 40 % (35-52); LYMPHOCYTES # (AUTO) 0.9 10^3/uL (1.0-4.0); LYMPHOCYTES % (AUTO) 5 % (12-44); MEAN CORPUSCULAR HEMOGLOBIN 30 pg (25-34); MEAN CORPUSCULAR HGB CONC 33 g/dL (32-36); MEAN CORPUSCULAR VOLUME 91 fL (80-99); MEAN PLATELET VOLUME 8.2 fL (9.0-12.2); MONOCYTES # (AUTO) 1.5 10^3/uL (0.0-1.0); MONOCYTES % (AUTO) 8 % (0-12); NEUTROPHILS # (AUTO) 15.4 10^3/uL (1.8-7.8); NEUTROPHILS % (AUTO) 83 % (42-75); PLATELET COUNT 219 10^3/uL (130-400); WHITE BLOOD COUNT 18.6 10^3/uL (4.3-11.0)
[2021-05-27] MEDS: inSUlin ASPART (NovoLOG) 1 UNIT/0.01 ML (CHARGE PER UNIT) SC SCH ×4 (06:50→20:26)
[2021-05-27 07:16] LABS: ALBUMIN 2.9 GM/DL (3.2-4.5); BILIRUBIN,TOTAL 0.6 MG/DL (0.1-1.0); CALCIUM 8.4 MG/DL (8.5-10.1); CREATININE SERUM 0.72 MG/DL (0.60-1.30); POTASSIUM 4.5 MMOL/L (3.6-5.0); TOTAL PROTEIN 6.2 GM/DL (6.4-8.2)
--- NOTE | 2021-05-27 08:11 | Progress Note ---
Subjective Date Seen by a Provider: May 27, 2021 Time Seen by a Provider: 11:10 Subjective/Events-last exam Patient doing about the same Can go to the alf until Ankur Lidia Sodium level 128 will start sodium tablets tomorrow Requests K pad so I ordered that Checked meds and labs Bowels are moving Review of Systems General: Fatigue, Malaise Pulmonary: Dyspnea, Cough Objective Exam Last Set of Vital Signs Vital Signs Date Time Temp Pulse Resp B/P (MAP) Pulse Ox O2 Delivery O2 Flow Rate FiO2 05/27/21 04:21 36.3 98 18 130/86 96 High Flow N/C 2.00 05/26/21 15:46 28 Capillary Refill : Less Than 3 Seconds I&O Intake and Output 05/27/21 00:00 Intake Total 1140 ml Output Total 700 ml Balance 440 ml Intake Oral 1140 ml Output Urine Total 700 ml # Bowel Movements 2 General: Alert, Oriented X3, Cooperative, No Acute Distress Lungs: Clear to Auscultation, Normal Air Movement Heart: Regular Rate, Normal S1, Normal S2, No Murmurs Results Lab Laboratory Tests 05/26/21 10:51: Glucometer 182H 05/26/21 15:44: Glucometer 179H 05/26/21 20:15: Glucometer 184H 05/27/21 04:27: Glucometer 140H 05/27/21 06:37: White Blood Count 18.6H, Red Blood Count 4.38, Hemoglobin 13.0, Hematocrit 40, Mean Corpuscular Volume 91, Mean Corpuscular Hemoglobin 30, Mean Corpuscular Hemoglobin Concent 33, Red Cell Distribution Width 15.1H, Platelet Count 219, Mean Platelet Volume 8.2L, Immature Granulocyte % (Auto) 4, Neutrophils (%) (Auto) 83H, Lymphocytes (%) (Auto) 5L, Monocytes (%) (Auto) 8, Eosinophils (%) (Auto) 0, Basophils (%) (Auto) 0, Neutrophils # (Auto) 15.4H, Lymphocytes # (Auto) 0.9L, Monocytes # (Auto) 1.5H, Eosinophils # (Auto) 0.0, Basophils # (Auto) 0.0, Immature Granulocyte # (Auto) 0.8H, Sodium Level 128L, Potassium Lev el 4.5, Chloride Level 89L, Carbon Dioxide Level 27, Anion Gap 12, Blood Urea Nitrogen 20H, Creatinine 0.72, Estimat Glomerular Filtration Rate 78, BUN/Creatinine Ratio 28, Glucose Level 184H, Calcium Level 8.4L, Corrected Calcium 9.3, Total Bilirubin 0.6, Aspartate Amino Transf (AST/SGOT) 16, Alanine Aminotransferase (ALT/SGPT) 28, Alkaline Phosphatase 64, Total Protein 6.2L, Albumin 2.9L Assessment/Plan Assessment/Plan Assess & Plan/Chief Complaint Assessment: Atrial fibrillation with rapid ventricular response status post Cardizem drip with Cardiology consultation Chronic atrial fibrillation maintained on Eliquis for stroke prophylaxis COVID-19 pneumonia 20 days out in a fully vaccinated individual Acute hypoxic respiratory failure on Vapotherm then transitioned to nasal cannula Bacterial pneumonia Dementia Hypothyroidism Hypertension Hyperlipidemia Constipation Plan: Cardiology consult eICU IV antibiotics Oxygen BiPAP Supportive care Oral anticoagulation 05/20/21: Supportive care ICU Cardizem drip Cardiology and EICU appreciated Eliquis 05/21/21: Eliquis Cardizem Cardiology appreciated Slow recovery Prognosis fair 05/22/2021: Transfer to fourth floor Supportive care 05/23/2021: Supportive care Confusion precludes good recovery 05/24/2021: DC isolation tomorrow? Await alf placement 05/25/2021: Laxatives Awaiting alf 05/26/2021: Continue therapy 05/27/2021: Supportive care Oral anticoagulation Add sodium tablets Diagnosis/Problems Diagnosis/Problems (1) Atrial fibrillation with rapid ventricular response Clinical Quality Measures Admission Status Admission Dx Assessment: Atrial fibrillation with rapid ventricular response Chronic atrial fibrillation maintained on Eliquis for stroke prophylaxis COVID-19 pneumonia 12 days out in a fully vaccinated individual Acute hypoxic respiratory failure Bacterial pneumonia Dementia Hypothyroidism Hypertension Hyperlipidemia Plan: Cardiology consult eICU IV antibiotics Oxygen BiPAP Supportive care Oral anticoagulation PAOLA HINDS DO May 27, 2021 08:11
[2021-05-27] MEDS: DOCUSATE SODIUM 100 MG (COLACE) CAP PO SCH ×2 (08:53→19:47)
[2021-05-27] MEDS: AMIODARONE 200 MG (CORDARONE) TAB PO SCH (08:53)
[2021-05-27] MEDS: PANTOPRAZOLE 20 MG TABLET (PROTONIX) PO SCH (08:53)
[2021-05-27] MEDS: PSYLLIUM POWDER (METAMUCIL) 5.8 GM PACKET PO SCH (08:53)
[2021-05-27] MEDS: ROSUVASTATIN 20 MG (CRESTOR) TABLET PO SCH (08:53)
[2021-05-27] MEDS: meTOprolol SUCCINATE 100 MG (TOPROL XL) TAB PO SCH (08:53)
[2021-05-27] MEDS: SERTRALINE 50 MG (ZOLOFT) TABLET PO SCH (08:53)
[2021-05-27] MEDS: DIGOXIN 0.125 MG (LANOXIN) TAB PO SCH (08:53)
[2021-05-27] MEDS: FUROSEMIDE 20 MG (LASIX) TAB PO SCH (08:53)
[2021-05-27] MEDS: polyethylene glycoL POWDER 17 GM (MIRALAX) PACK PO SCH ×2 (08:54→19:47)
[2021-05-27] MEDS: SODIUM CHLORIDE 1 GM TABLET PO SCH ×2 (08:54→21:58)
[2021-05-27] MEDS: LACTULOSE SYRUP 10GM/15ML (ENULOSE) 30ML UDC PO SCH ×2 (08:54→19:47)
[2021-05-27] MEDS: SENNA W/DOCUSATE (SENOKOT S) TABLET PO SCH ×2 (08:54→19:47)
--- NOTE | 2021-05-27 12:32 | Physical Therapy Daily Note ---
PT Daily Note-Current Transfers SCALE: Activities may be completed with or without assistive devices. 7-Idcboghuaz-xivolkw completes the activity by him/herself with no assistance from a helper. 5-Set-up or Clean-up Assistance-helper sets up or cleans up; patient completes activity. [place] assists only prior to or following the activity. 4-Supervision or Touching Assistance-helper provides verbal cues and/or touching/steadying and/or contact guard assistance as patient completes activity. Assistance may be provided throughout the activity or intermittently. 3-Partial/Moderate Assistance-helper does LESS THAN HALF the effort. [place] lifts, holds or supports trunk or limbs, but provides less than half the effort. 2-Substantial/Maximal Assistance-helper does MORE THAN HALF the effort. [place] lifts or holds trunk or limbs and provides more than half the effort. 1-Gepqndzxe-jwgphh does ALL the effort. Patient does none of the effort to complete the activity. Or, the assistance of 2 or more helpers is required for the patient to complete the activity. If activity was not attempted, code reason: 7-Patient Refused. 9-Not Applicable-not attempted and the patient did not perform the activity before the current illness, exacerbation or injury. 10-Not Attempted due to Environmental Limitations-(lack of equipment, weather restraints, etc.). 88-Not Attempted due to Medical Conditions or Safety Concerns. Roll Left & Right (QC): 2 Sit to Lying (QC): 2 Lying to Sitting/Side of Bed(Q: 2 Sit to Stand (QC): 1 Gait Training Does the Patient Walk?: No and Walking Goal IS indicated Treatments Patient attempted sit to stand x 5 with max A. Each time patient was unable to sonar watchstander a fully erect position. Assessment Current Status: Poor Progress Patient tolerated treatment poorly. She is very contrary and does not appear to be putting full effort into treatment. She requires mod/max A for all bed mobility and transfers. Patient attempted sit to stand x 5 with max A. Each time patient was unable to sonar watchstander a fully erect position. Patient was given education to returning to bed safely and with proper procedure. Patient reports "Just put my legs in bed." Patient eventually lowered herself onto her right elbow, however then threw herself back into bed. Patient required max A for sit to supine and sliding in bed. Patient in bed post treatment with all needs met, nursing notified, call light in reach. PT Short Term Goals Short Term Goals Time Frame: May 29, 2021 Roll Left & Right: 4 Sit to lyin Lying to sitting on side of be: 4 Sit to stand: 4 Chair/jcn-xj-tedpf transfer: 4 Toilet transfer: 4 Walk 10 feet: 3 Walk 50 feet with two turns: 3 PT Hospital Monitor Goals Hospital Monitor Goals PT Hospital Monitor Goals Time Frame: Jun 09, 2021 Roll Left & Right (QC): 5 Sit to Lying (QC): 5 Lying-Sitting on Side/Bed(QC): 5 Sit to Stand (QC): 5 Chair/Qed-gr-Ezusk Xfer(QC): 5 Toilet Transfer (QC): 5 Car Transfer (QC): 5 Does the Patient Walk: Yes Walk 10 feet (QC): 4 Walk 50ft with 2 Turns (QC): 4 Walk 150 ft (QC): 4 PT Plan Treatment/Plan Treatment Plan: Continue Plan of Care Treatment Plan: Bed Mobility, Education, Functional Activity Tiffany, Functional Strength, Group Therapy, Gait, Safety, Therapeutic Exercise, Transfers Treatment Duration: Jul 07, 2021 Frequency: 6 times per week Estimated Hrs Per Day: .25 hour per day Patient and/or Family Agrees t: Yes Safety Risks/Education Patient Education: Transfer Techniques, Reviewed Precautions, Safety Issues Teaching Recipient: Patient Teaching Methods: Demonstration, Discussion Response to Teaching: Verbalize Understanding, Return Demonstration Time/GCodes Time In: 1048 Time Out: 1100 Total Billed Treatment Time: 12 Total Billed Treatment Visit, LEONID MCDANIEL PT May 27, 2021 12:32
[2021-05-27] MEDS: ONDANSETRON 4 MG/2 ML (SDV) Z0FRAN IVP PRN (15:47)
[2021-05-28] MEDS: RT-ALBUTEROL HFA 8.5 GM INHALER IH SCH ×4 (03:22→21:18)
[2021-05-28] MEDS: ACETAMINOPHEN 325 MG TABLET PO PRN ×2 (04:14→09:57)
[2021-05-28] MEDS: inSUlin ASPART (NovoLOG) 1 UNIT/0.01 ML (CHARGE PER UNIT) SC SCH ×4 (06:49→21:00)
[2021-05-28] MEDS: ROSUVASTATIN 20 MG (CRESTOR) TABLET PO SCH (09:50)
[2021-05-28] MEDS: meTOprolol SUCCINATE 100 MG (TOPROL XL) TAB PO SCH (09:56)
[2021-05-28] MEDS: AMIODARONE 200 MG (CORDARONE) TAB PO SCH (09:56)
[2021-05-28] MEDS: DIGOXIN 0.125 MG (LANOXIN) TAB PO SCH (09:56)
[2021-05-28] MEDS: PANTOPRAZOLE 20 MG TABLET (PROTONIX) PO SCH (09:56)
[2021-05-28] MEDS: SODIUM CHLORIDE 1 GM TABLET PO SCH ×3 (09:56→21:15)
[2021-05-28] MEDS: FUROSEMIDE 20 MG (LASIX) TAB PO SCH (09:56)
[2021-05-28] MEDS: SERTRALINE 50 MG (ZOLOFT) TABLET PO SCH (09:56)
[2021-05-28] MEDS: LACTULOSE SYRUP 10GM/15ML (ENULOSE) 30ML UDC PO SCH ×2 (09:57→21:00)
[2021-05-28] MEDS: DOCUSATE SODIUM 100 MG (COLACE) CAP PO SCH ×2 (09:57→21:00)
[2021-05-28] MEDS: SENNA W/DOCUSATE (SENOKOT S) TABLET PO SCH ×2 (09:58→21:00)
[2021-05-28] MEDS: PSYLLIUM POWDER (METAMUCIL) 5.8 GM PACKET PO SCH (09:58)
[2021-05-28] MEDS: polyethylene glycoL POWDER 17 GM (MIRALAX) PACK PO SCH ×2 (09:58→21:00)
[2021-05-28] MEDS: ONDANSETRON 4 MG/2 ML (SDV) Z0FRAN IVP PRN ×3 (12:00→19:59)
--- NOTE | 2021-05-28 12:27 | Progress Note ---
Subjective Date Seen by a Provider: May 28, 2021 Time Seen by a Provider: 11:45 Subjective/Events-last exam Patient about the same Heating pad has been helpful Very negative outlook no major changes recently Weaning down oxygen Sodium level low started on sodium tablets Review of Systems General: Fatigue, Malaise Pulmonary: Dyspnea, Cough Objective Exam Last Set of Vital Signs Vital Signs Date Time Temp Pulse Resp B/P (MAP) Pulse Ox O2 Delivery O2 Flow Rate FiO2 05/28/21 11:22 36.6 103 20 129/80 96 Nasal Cannula 2.00 05/26/21 15:46 28 Capillary Refill : Less Than 3 Seconds I&O Intake and Output 05/28/21 00:00 Intake Total 1300 ml Output Total 975 ml Balance 325 ml Intake Oral 1300 ml Output Urine Total 975 ml # Bowel Movements 1 General: Alert, Oriented X3 (Poor recall), Cooperative, No Acute Distress Lungs: Clear to Auscultation, Normal Air Movement Heart: Regular Rate, Normal S1, Normal S2, No Murmurs Psych/Mental Status: Mood NL Results Lab Laboratory Tests 05/27/21 15:43: Glucometer 203H 05/28/21 05:53: Glucometer 110 05/28/21 11:26: Glucometer 141H Assessment/Plan Assessment/Plan Assess & Plan/Chief Complaint Assessment: Atrial fibrillation with rapid ventricular response status post Cardizem drip with Cardiology consultation Chronic atrial fibrillation maintained on Eliquis for stroke prophylaxis COVID-19 pneumonia 20 days out in a fully vaccinated individual Acute hypoxic respiratory failure on Vapotherm then transitioned to nasal cannula Bacterial pneumonia Dementia Hypothyroidism Hypertension Hyperlipidemia Constipation Plan: Cardiology consult eICU IV antibiotics Oxygen BiPAP Supportive care Oral anticoagulation 05/20/21: Supportive care ICU Cardizem drip Cardiology and EICU appreciated Eliquis 05/21/21: Eliquis Cardizem Cardiology appreciated Slow recovery Prognosis fair 05/22/2021: Transfer to fourth floor Supportive care 05/23/2021: Supportive care Confusion precludes good recovery 05/24/2021: DC isolation tomorrow? Await usp placement 05/25/2021: Laxatives Awaiting usp 05/26/2021: Continue therapy 05/27/2021: Supportive care Oral anticoagulation Add sodium tablets 05/28/2021: Supportive care Sodium tablets Diagnosis/Problems Diagnosis/Problems (1) Atrial fibrillation with rapid ventricular response Clinical Quality Measures Admission Status Admission Dx Assessment: Atrial fibrillation with rapid ventricular response Chronic atrial fibrillation maintained on Eliquis for stroke prophylaxis COVID-19 pneumonia 12 days out in a fully vaccinated individual Acute hypoxic respiratory failure Bacterial pneumonia Dementia Hypothyroidism Hypertension Hyperlipidemia Plan: Cardiology consult eICU IV antibiotics Oxygen BiPAP Supportive care Oral anticoagulation PAOLA HINDS DO May 28, 2021 12:27
[2021-05-29] MEDS: ONDANSETRON 4 MG/2 ML (SDV) Z0FRAN IVP PRN ×4 (00:24→21:28)
[2021-05-29] MEDS: ACETAMINOPHEN 325 MG TABLET PO PRN ×3 (01:43→21:25)
[2021-05-29] MEDS: RT-ALBUTEROL HFA 8.5 GM INHALER IH SCH ×3 (02:29→21:41)
[2021-05-29] MEDS ORDERED: FUROSEMIDE 40 MG/4 ML INJ (LASIX) IVP ONE (02:45)
[2021-05-29] MEDS ORDERED: FUROSEMIDE 40 MG/4 ML INJ (LASIX) ONE ×2 (02:46→06:22)
[2021-05-29] MEDS: inSUlin ASPART (NovoLOG) 1 UNIT/0.01 ML (CHARGE PER UNIT) SC SCH ×4 (05:37→21:19)
[2021-05-29] MEDS: FUROSEMIDE 40 MG/4 ML INJ (LASIX) IVP SCH ×2 (06:25→16:20)
[2021-05-29 06:51] LABS: BASOPHILS # (AUTO) 0.1 10^3/uL (0.0-0.1); BASOPHILS % (AUTO) 0 % (0-10); EOSINOPHILS # (AUTO) 0.1 10^3/uL (0.0-0.3); EOSINOPHILS % (AUTO) 0 % (0-10); HEMATOCRIT 42 % (35-52); HEMOGLOBIN 13.6 g/dL (11.5-16.0); LYMPHOCYTES # (AUTO) 0.9 10^3/uL (1.0-4.0); LYMPHOCYTES % (AUTO) 4 % (12-44); MEAN CORPUSCULAR HEMOGLOBIN 30 pg (25-34); MEAN CORPUSCULAR HGB CONC 33 g/dL (32-36); MEAN CORPUSCULAR VOLUME 92 fL (80-99); MEAN PLATELET VOLUME 8.6 fL (9.0-12.2); MONOCYTES # (AUTO) 1.5 10^3/uL (0.0-1.0); MONOCYTES % (AUTO) 6 % (0-12); NEUTROPHILS # (AUTO) 20.6 10^3/uL (1.8-7.8); NEUTROPHILS % (AUTO) 86 % (42-75); PLATELET COUNT 249 10^3/uL (130-400); WHITE BLOOD COUNT 24.1 10^3/uL (4.3-11.0)
--- NOTE | 2021-05-29 07:03 | Diagnostic Imaging Report ---
EXAMINATION: Chest radiograph, portable AP view. DATE: 05/29/2021 6:58 AM INDICATION: 80-year-old female, history of congestive heart failure. COVID positive. Shortness of breath. COMPARISON: May 26, 2021. FINDINGS: Heart size and mediastinal contours are unchanged. There is no identified pneumothorax. There are multifocal bilateral alveolar and/or interstitial opacities. There is blunting of the left lateral costophrenic angle with obscuration of visualization of the left hemidiaphragm. 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 IMPRESSION: 1. Grossly unchanged bilateral interstitial and/or alveolar opacities with potential left pleural effusion. 2. Unchanged cardiomegaly. Dictated by: Dictated on workstation # [id number]
[2021-05-29 07:34] LABS: ATYPICAL LYMPHOCYTES 3 %; LYMPHOCYTES % (MANUAL) 4 %; MONOCYTES % (MANUAL) 5 %; NEUTROPHILS % (MANUAL) 88 %; RBC MORPH NORMAL
[2021-05-29 07:43] LABS: ALBUMIN 3.1 GM/DL (3.2-4.5); BILIRUBIN,TOTAL 0.6 MG/DL (0.1-1.0); CALCIUM 8.4 MG/DL (8.5-10.1); CREATININE SERUM 0.65 MG/DL (0.60-1.30); POTASSIUM 4.2 MMOL/L (3.6-5.0); TOTAL PROTEIN 6.6 GM/DL (6.4-8.2)
--- NOTE | 2021-05-29 09:14 | Progress Note ---
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 Review of Systems General: Fatigue, Malaise Pulmonary: Dyspnea Focused Exam Lactate Level 05/29/21 06:36: Lactic Acid Level 0.96 Lactic Acid Level Laboratory Tests Test 05/29/21 06:36 Lactic Acid Level 0.96 MMOL/L (0.50-2.00) Objective Exam Last Set of Vital Signs Vital Signs Date Time Temp Pulse Resp B/P (MAP) Pulse Ox O2 Delivery O2 Flow Rate FiO2 05/29/21 07:41 35.3 95 20 117/84 96 Nasal Cannula 2.50 05/26/21 15:46 28 Capillary Refill : Less Than 3 Seconds I&O Intake and Output 05/29/21 00:00 Intake Total 2011 ml Output Total 925 ml Balance 1087 ml Intake Oral 2011 ml Output Urine Total 925 ml # Bowel Movements 1 General: Alert, Oriented X3, Cooperative, No Acute Distress Lungs: Clear to Auscultation, Normal Air Movement Heart: Other (A. fib) Psych/Mental Status: Mental Status NL, Mood NL Results Lab Laboratory Tests 05/28/21 11:26: Glucometer 141H 05/28/21 16:35: Glucometer 156H 05/28/21 20:28: Glucometer 150H 05/29/21 05:31: Glucometer 103 05/29/21 06:36: White Blood Count 24.1H, Red Blood Count 4.53, Hemoglobin 13.6, Hematocrit 42, M ailyn Corpuscular Volume 92, Mean Corpuscular Hemoglobin 30, Mean Corpuscular Hemoglobin Concent 33, Red Cell Distribution Width 14.6H, Platelet Count 249, Mean Platelet Volume 8.6L, Immature Granulocyte % (Auto) 4, Neutrophils (%) (Auto) 86H, Lymphocytes (%) (Auto) 4L, Monocytes (%) (Auto) 6, Eosinophils (%) (Auto) 0, Basophils (%) (Auto) 0, Neutrophils # (Auto) 20.6H, Lymphocytes # (Auto) 0.9L, Monocytes # (Auto) 1.5H, Eosinophils # (Auto) 0.1, Basophils # (Auto) 0.1, Immature Granulocyte # (Auto) 1.0H, Neutrophils % (Manual) 88, Lymphocytes % (Manual) 4, Monocytes % (Manual) 5, Atypical Lymphocytes 3, Blood Morphology Comment NORMAL, Sodium Level 125*L, Potassium Level 4.2, Chloride Lev el 85L, Carbon Dioxide Level 29, Anion Gap 11, Blood Urea Nitrogen 11, Creatinine 0.65, Estimat Glomerular Filtration Rate 88, BUN/Creatinine Ratio 17, Glucose Level 110H, Lactic Acid Level 0.96, Calcium Level 8.4L, Corrected Calcium 9.1, Total Bilirubin 0.6, Aspartate Amino Transf (AST/SGOT) 22, Alanine Aminotransferase (ALT/SGPT) 31, Alkaline Phosphatase 78, B-Type Natriuretic Peptide 224.3H, Total Protein 6.6, Albumin 3.1L, Procalcitonin 0.09 Assessment/Plan Assessment/Plan Assess & Plan/Chief Complaint Assessment: Atrial fibrillation with rapid ventricular response status post Cardizem drip with Cardiology consultation Chronic atrial fibrillation maintained on Eliquis for stroke prophylaxis COVID-19 pneumonia 20 days out in a fully vaccinated individual Acute hypoxic respiratory failure on Vapotherm then transitioned to nasal cannula Bacterial pneumonia Dementia Hypothyroidism Hypertension Hyperlipidemia Constipation resolved Plan: Cardiology consult eICU IV antibiotics Oxygen BiPAP Supportive care Oral anticoagulation 05/20/21: Supportive care ICU Cardizem drip Cardiology and EICU appreciated Eliquis 05/21/21: Eliquis Cardize Cardiology appreciated Slow recovery Prognosis fair 05/22/2021: Transfer to fourth floor Supportive care 05/23/2021: Supportive care Confusion precludes good recovery 05/24/2021: DC isolation tomorrow? Await detention placement 05/25/2021: Laxatives Awaiting detention 05/26/2021: Continue therapy 05/27/2021: Supportive care Oral anticoagulation Add sodium tablets 05/28/2021: Supportive care Sodium tablets 05/29/2021: Fluid restriction Salt tablets IV Lasix Diagnosis/Problems Diagnosis/Problems (1) Atrial fibrillation with rapid ventricular response Clinical Quality Measures Admission Status Admission Dx Assessment: Atrial fibrillation with rapid ventricular response Chronic atrial fibrillation maintained on Eliquis for stroke prophylaxis COVID-19 pneumonia 12 days out in a fully vaccinated individual Acute hypoxic respiratory failure Bacterial pneumonia Dementia Hypothyroidism Hypertension Hyperlipidemia Plan: Cardiology consult eICU IV antibiotics Oxygen BiPAP Supportive care Oral anticoagulation PAOLA HINDS DO May 29, 2021 09:14
--- NOTE | 2021-05-29 09:57 | Progress Note - Urology ---
Progress Note-Urology Progress Notes/Assess & Plan Progress/Assessment & Plan URINE CONTINUES DONG CLEAR WE WILL SEE HER PRN Final Diagnosis GROSS HEMATURIA (RESOLVED) NAYANA GANNON MD May 29, 2021 09:57
[2021-05-29] MEDS: DIGOXIN 0.125 MG (LANOXIN) TAB PO SCH (09:58)
[2021-05-29] MEDS: ROSUVASTATIN 20 MG (CRESTOR) TABLET PO SCH (09:59)
[2021-05-29] MEDS: AMIODARONE 200 MG (CORDARONE) TAB PO SCH (09:59)
[2021-05-29] MEDS: SERTRALINE 50 MG (ZOLOFT) TABLET PO SCH (09:59)
[2021-05-29] MEDS: PANTOPRAZOLE 20 MG TABLET (PROTONIX) PO SCH (09:59)
[2021-05-29] MEDS: meTOprolol SUCCINATE 100 MG (TOPROL XL) TAB PO SCH (09:59)
--- NOTE | 2021-05-29 10:27 | Physical Therapy Daily Note ---
PT Daily Note-Current Subjective Patient in bed pre tx, agrees to PT, has no complaints of pain Appearance Patient in recliner post tx with nurse call, phone, tray, all needs met. Mental Status Patient Orientation: Person, Place, Situation Attachments: Oxygen, Vasquez Catheter Transfers SCALE: Activities may be completed with or without assistive devices. 6-Mzwtivmjkw-lkprpfz completes the activity by him/herself with no assistance from a helper. 5-Set-up or Clean-up Assistance-helper sets up or cleans up; patient completes activity. [place] assists only prior to or following the activity. 4-Supervision or Touching Assistance-helper provides verbal cues and/or touching/steadying and/or contact guard assistance as patient completes activit y. Assistance may be provided throughout the activity or intermittently. 3-Partial/Moderate Assistance-helper does LESS THAN HALF the effort. [place] lifts, holds or supports trunk or limbs, but provides less than half the effort. 2-Substantial/Maximal Assistance-helper does MORE THAN HALF the effort. [place] lifts or holds trunk or limbs and provides more than half the effort. 0-Psgbkfcvw-nwzqjr does ALL the effort. Patient does none of the effort to complete the activity. Or, the assistance of 2 or more helpers is required for the patient to complete the activity. If activity was not attempted, code reason: 7-Patient Refused. 9-Not Applicable-not attempted and the patient did not perform the activity before the current illness, exacerbation or injury. 10-Not Attempted due to Environmental Limitations-(lack of equipment, weather restraints, etc.). 88-Not Attempted due to Medical Conditions or Safety Concerns. Roll Left & Right (QC): 3 Lying to Sitting/Side of Bed(Q: 3 Sit to Stand (QC): 2 Chair/Ogf-mo-Ngmtw Xfer(QC): 2 Patient attempted to stand x2 with max assist and couldn't completely stand either time, eventually just did a max assist stand pivot to the recliner. Exercises Seated Therapy Exercises: Ankle pumps, Long arc quads Seated Reps: 20 Treatments bed mobility and transfers, LE strengthening Assessment Current Status: Poor Progress increasing debility PT Short Term Goals Short Term Goals Time Frame: May 29, 2021 Roll Left & Right: 4 Sit to lyin Lying to sitting on side of be: 4 Sit to stand: 4 Chair/eim-lu-hmikn transfer: 4 Toilet transfer: 4 Walk 10 feet: 3 Walk 50 feet with two turns: 3 PT Mcfp Goals Mcfp Goals PT Animal Services Officer Goals Time Frame: Jun 09, 2021 Roll Left & Right (QC): 5 Sit to Lying (QC): 5 Lying-Sitting on Side/Bed(QC): 5 Sit to Stand (QC): 5 Chair/Zey-vz-Lxmmk Xfer(QC): 5 Toilet Transfer (QC): 5 Car Transfer (QC): 5 Does the Patient Walk: Yes Walk 10 feet (QC): 4 Walk 50ft with 2 Turns (QC): 4 Walk 150 ft (QC): 4 PT Plan Problem List Problem List: Activity Tolerance, Functional Strength, Safety, Balance, Gait, Transfer, Bed Mobility, ROM Treatment/Plan Treatment Plan: Continue Plan of Care Treatment Plan: Bed Mobility, Education, Functional Activity Tiffany, Functional Strength, Group Therapy, Gait, Safety, Therapeutic Exercise, Transfers Treatment Duration: Jul 07, 2021 Frequency: 6 times per week Estimated Hrs Per Day: .25 hour per day Patient and/or Family Agrees t: Yes Safety Risks/Education Patient Education: Transfer Techniques, Correct Positioning, Safety Issues Teaching Recipient: Patient Teaching Methods: Demonstration, Discussion Response to Teaching: Reinforcement Needed Time/GCodes Time In: 1003 Time Out: 1017 Total Billed Treatment Time: 14 Total Billed Treatment 1 visit FA EZ ALBARADO PT May 29, 2021 10:27
[2021-05-29] MEDS: SODIUM CHLORIDE 1 GM TABLET PO SCH ×2 (10:29→21:20)
--- NOTE | 2021-05-29 10:51 | Occupational Ther Daily Note ---
OT Current Status-Daily Note Subjective Pt alert, lying in bed. Pt agrees to therapy after encouragement from therapy and nrsg. Mental Status/Objective Patient Orientation: Person, Place, Time, Situation ADL-Treatment Therapy Code Descriptions/Definitions Functional [place] Measure: 0=Not Assessed/NA 4=Minimal Assistance 1=Total Assistance 5=Supervision or Setup 2=Maximal Assistance 6=Modified [place] 3=Moderate Assistance 7=Complete IndependenceSCALE: Activities may be completed with or without assistive devices. 5-Tslnywinbh-yirbwpf completes the activity by him/herself with no assistance from a helper. 5-Set-up or Clean-up Assistance-helper sets up or cleans up; patient completes activity. [place] assists only prior to or following the activity. 4-Supervision or Touching Assistance-helper provides verbal cues and/or touching/steadying and/or contact guard assistance as patient completes activity. Assistance may be provided throughout the activity or intermittently. 3-Partial/Moderate Assistance-helper does LESS THAN HALF the effort. [place] lifts, holds or supports trunk or limbs, but provides less than half the effort. 2-Substantial/Maximal Assistance-helper does MORE THAN HALF the effort. [place] lifts or holds trunk or limbs and provides more than half the effort. 1-Ydlrnatch-oluztu does ALL the effort. Patient does none of the effort to complete the activity. Or, the assistance of 2 or more helpers is required for the patient to complete the activity. If activity was not attempted, code reason: 7-Patient Refused. 9-Not Applicable-not attempted and the patient did not perform the activity before the current illness, exacerbation or injury. 10-Not Attempted due to Environmental Limitations-(lack of equipment, weather restraints, etc.). 88-Not Attempted due to Medical Conditions or Safety Concerns. Other Treatment Patient attempted to stand x2 with max assist and couldn't completely stand either time. To transfer to recliner, max assist stand pivot. B UE ROM WFL. After therapy, pt sitting in recliner with call light/phone in reach. Nrsg present in room. All needs met. OT Radiographer Technologist Goals Radiographer Technologist Goals Time Frame: Jun 16, 2021 Oral Hygiene (QC): 5 Toileting Hygiene (QC): 4 Shower/Bathe Self (QC): 4 Upper Body Dressing (QC): 4 Lower Body Dressing (QC): 4 On/Off Footwear (QC): 4 1=Demonstrate adherence to instructed precautions during ADL tasks. 2=Patient will verbalize/demonstrate understanding of assistive devices/modifications for ADL. 3=Patient will improve strength/tolerance for activity to enable patient to perform ADL's. OT Education/Plan Problem List/Assessment Assessment: Decreased Activ Tolerance, Decreased UE Strength, Impaired Self- Care Skills Discharge Recommendations Plan/Recommendations: Continue POC Treatment Plan/Plan of Care Patient would benefit from OT for education, treatment and training to promote independence in ADL's, mobility, safety and/or upper extremity function for ADL's. Plan of Care: ADL Retraining, Functional Mobility, Group Exercise/Act as Ind, UE Funct Exercise/Act Treatment Duration: Jun 16, 2021 Frequency: 3 times per week Estimated Hrs Per Day: .25 hour per day Agreement: Yes Rehab Potential: Fair Time/GCodes Start Time: 10:05 Stop Time: 10:15 Total Time Billed (hr/min): 10 Billed Treatment Time 1 visit-FA 1 (10 min) CECILIA NGO May 29, 2021 10:51
[2021-05-29] MEDS: DOCUSATE SODIUM 100 MG (COLACE) CAP PO SCH ×2 (10:56→21:00)
[2021-05-29] MEDS: LACTULOSE SYRUP 10GM/15ML (ENULOSE) 30ML UDC PO SCH ×2 (10:56→21:00)
[2021-05-29] MEDS: polyethylene glycoL POWDER 17 GM (MIRALAX) PACK PO SCH ×2 (10:56→21:00)
[2021-05-29] MEDS: SENNA W/DOCUSATE (SENOKOT S) TABLET PO SCH ×2 (10:56→21:00)
[2021-05-29] MEDS: PSYLLIUM POWDER (METAMUCIL) 5.8 GM PACKET PO SCH (10:56)
[2021-05-29] MEDS ORDERED: ONDANSETRON 4 MG (ZOFRAN) ORAL DISSOLVE TAB PO PRN (11:45)
[2021-05-29] MEDS ORDERED: ONDANSETRON 4 MG (ZOFRAN) ORAL DISSOLVE TAB ONE (11:58)
[2021-05-29] MEDS: CATHETER FLUSH 10 ML SYR IV PRN (16:23)
[2021-05-29 16:31] VITALS: BP 123/75
[2021-05-29] MEDS: APIXABAN 5 MG (ELIQUIS) TABLET PO SCH (21:19)
[2021-05-29] MEDS: MELATONIN 3 MG TABLET PO PRN (21:20)
[2021-05-30] MEDS: RT-ALBUTEROL HFA 8.5 GM INHALER IH SCH ×4 (02:40→21:21)
[2021-05-30] MEDS: ACETAMINOPHEN 325 MG TABLET PO PRN (03:27)
[2021-05-30] MEDS: inSUlin ASPART (NovoLOG) 1 UNIT/0.01 ML (CHARGE PER UNIT) SC SCH ×4 (06:00→20:46)
--- NOTE | 2021-05-30 06:03 | Progress Note ---
Subjective Date Seen by a Provider: May 30, 2021 Time Seen by a Provider: 10:00 Subjective/Events-last exam Pt about the same Sleeping up in a chair Sodium level 126 [place] [address] Pt appears to be very very debilitated Review of Systems General: Fatigue, Malaise Pulmonary: Dyspnea Focused Exam Lactate Level 05/29/21 06:36: Lactic Acid Level 0.96 Objective Exam Last Set of Vital Signs Vital Signs Date Time Temp Pulse Resp B/P (MAP) Pulse Ox O2 Delivery O2 Flow Rate FiO2 05/30/21 03:22 36.8 100 20 123/5 95 High Flow N/C 1.50 05/29/21 16:31 28 Capillary Refill : Less Than 3 Seconds I&O Intake and Output 05/30/21 00:00 Intake Total 600 ml Output Total 2950 ml Balance -2350 ml Intake Oral 600 ml Output Urine Total 2950 ml General: Alert, Oriented X3, Cooperative, No Acute Distress Lungs: Clear to Auscultation, Normal Air Movement Heart: Regular Rate, Normal S1, Normal S2, No Murmurs Psych/Mental Status: Other (Flat affect) Results Lab Laboratory Tests 05/29/21 06:36: White Blood Count 24.1H, Red Blood Count 4.53, Hemoglobin 13.6, Hematocrit 42, Mean Corpuscular Volume 92, Mean Corpuscular Hemoglobin 30, Mean Corpuscular Hemoglobin Concent 33, Red Cell Distribution Width 14.6H, Platelet Count 249, Mean Platelet Volume 8.6L, Immature Granulocyte % (Auto) 4, Neutrophils (%) (Auto) 86H, Lymphocytes (%) (Auto) 4L, Monocytes (%) (Auto) 6, Eosinophils (%) (Auto) 0, Basophils (%) (Auto) 0, Neutrophils # (Auto) 20.6H, Lymphocytes # (Auto) 0.9L, Monocytes # (Auto) 1.5H, Eosinophils # (Auto) 0.1, Basophils # (Auto) 0.1, Immature Granulocyte # (Auto) 1.0H, Neutrophils % (Manual) 88, Lymphocytes % (Manual) 4, Monocytes % (Manual) 5, Atypical Lymphocytes 3, Blood Morphology Comment NORMAL, Sodium Level 125*L, Potassium Level 4.2, Chloride Level 85L, Carbon Dioxide Level 29, Anion Gap 11, Blood Urea Nitrogen 11, Creatinine 0.65, Estimat Glomerular Filtration Rate 88, BUN/Creatinine Ratio 17, Glucose Level 110H, Lactic Acid Level 0.96, Calcium Level 8.4L, Corrected Calcium 9.1, Total Bilirubin 0.6, Aspartate Amino Transf (AST/SGOT) 22, Alanine Aminotransferase (ALT/SGPT) 31, Alkaline Phosphatase 78, B-Type Natriuretic Peptide 224.3H, Total Protein 6.6, Albumin 3.1L, Procalcitonin 0.09 05/29/21 10:33: Glucometer 129H 05/29/21 15:25: Glucometer 147H 05/29/21 20:07: Glucometer 257H Assessment/Plan Assessment/Plan Assess & Plan/Chief Complaint Assessment: Atrial fibrillation with rapid ventricular response status post Cardizem drip with Cardiology consultation Chronic atrial fibrillation maintained on Eliquis for stroke prophylaxis COVID-19 pneumonia 20 days out in a fully vaccinated individual Acute hypoxic respiratory failure on Vapotherm then transitioned to nasal cannula Bacterial pneumonia Dementia Hypothyroidism Hypertension Hyperlipidemia Constipation resolved Plan: Cardiology consult eICU IV antibiotics Oxygen BiPAP Supportive care Oral anticoagulation 05/20/21: Supportive care ICU Cardizem drip Cardiology and EICU appreciated Eliquis 05/21/21: Eliquis Cardizem Cardiology appreciated Slow recovery Prognosis fair 05/22/2021: Transfer to fourth floor Supportive care 05/23/2021: Supportive care Confusion precludes good recovery 05/24/2021: DC isolation tomorrow? Await chcf placement 05/25/2021: Laxatives Awaiting ch[facility] 05/26/2021: Continue therapy 05/27/2021: Supportive care Oral anticoagulation Add sodium tablets 05/28/2021: Supportive care Sodium tablets 05/29/2021: Fluid restriction Salt tablets IV Lasix 05/30/2021: Supportive care Discharge to [facility] Saturday Diagnosis/Problems Diagnosis/Problems (1) Atrial fibrillation with rapid ventricular response Clinical Quality Measures Admission Status Admission Dx Assessment: Atrial fibrillation with rapid ventricular response Chronic atrial fibrillation maintained on Eliquis for stroke prophylaxis COVID-19 pneumonia 12 days out in a fully vaccinated individual Acute hypoxic respiratory failure Bacterial pneumonia Dementia Hypothyroidism Hypertension Hyperlipidemia Plan: Cardiology consult eICU IV antibiotics Oxygen BiPAP Supportive care Oral anticoagulation PAOLA HINDS DO May 30, 2021 06:03
[2021-05-30] MEDS: FUROSEMIDE 40 MG/4 ML INJ (LASIX) IVP SCH ×2 (06:20→17:08)
[2021-05-30] MEDS: ONDANSETRON 4 MG/2 ML (SDV) Z0FRAN IVP PRN ×3 (06:20→20:39)
[2021-05-30 06:43] LABS: BASOPHILS # (AUTO) 0.1 10^3/uL (0.0-0.1); BASOPHILS % (AUTO) 0 % (0-10); EOSINOPHILS % (AUTO) 0 % (0-10); HEMATOCRIT 38 % (35-52); HEMOGLOBIN 12.8 g/dL (11.5-16.0); LYMPHOCYTES # (AUTO) 0.8 10^3/uL (1.0-4.0); LYMPHOCYTES % (AUTO) 4 % (12-44); MEAN CORPUSCULAR HEMOGLOBIN 31 pg (25-34); MEAN CORPUSCULAR HGB CONC 33 g/dL (32-36); MEAN CORPUSCULAR VOLUME 92 fL (80-99); MEAN PLATELET VOLUME 8.7 fL (9.0-12.2); MONOCYTES # (AUTO) 1.6 10^3/uL (0.0-1.0); MONOCYTES % (AUTO) 7 % (0-12); NEUTROPHILS % (AUTO) 86 % (42-75); PLATELET COUNT 256 10^3/uL (130-400); WHITE BLOOD COUNT 23.3 10^3/uL (4.3-11.0)
[2021-05-30 06:51] LABS: ALBUMIN 2.6 GM/DL (3.2-4.5); POTASSIUM 3.9 MMOL/L (3.6-5.0)
[2021-05-30 06:53] LABS: CALCIUM 7.9 MG/DL (8.5-10.1)
[2021-05-30 06:54] LABS: TOTAL PROTEIN 5.7 GM/DL (6.4-8.2)
[2021-05-30 06:56] LABS: BILIRUBIN,TOTAL 0.6 MG/DL (0.1-1.0)
[2021-05-30 06:57] LABS: CREATININE SERUM 0.61 MG/DL (0.60-1.30)
[2021-05-30] MEDS: SERTRALINE 50 MG (ZOLOFT) TABLET PO SCH (08:56)
[2021-05-30] MEDS: PANTOPRAZOLE 20 MG TABLET (PROTONIX) PO SCH (08:56)
[2021-05-30] MEDS: LACTULOSE SYRUP 10GM/15ML (ENULOSE) 30ML UDC PO SCH ×2 (08:56→20:46)
[2021-05-30] MEDS: ROSUVASTATIN 20 MG (CRESTOR) TABLET PO SCH (08:56)
[2021-05-30] MEDS: AMIODARONE 200 MG (CORDARONE) TAB PO SCH (08:56)
[2021-05-30] MEDS: APIXABAN 5 MG (ELIQUIS) TABLET PO SCH ×2 (08:56→20:40)
[2021-05-30] MEDS: DOCUSATE SODIUM 100 MG (COLACE) CAP PO SCH ×2 (08:56→20:40)
[2021-05-30] MEDS: meTOprolol SUCCINATE 100 MG (TOPROL XL) TAB PO SCH (08:56)
[2021-05-30] MEDS: PSYLLIUM POWDER (METAMUCIL) 5.8 GM PACKET PO SCH (08:57)
[2021-05-30] MEDS: SENNA W/DOCUSATE (SENOKOT S) TABLET PO SCH ×2 (08:57→20:41)
[2021-05-30] MEDS: polyethylene glycoL POWDER 17 GM (MIRALAX) PACK PO SCH ×2 (08:57→20:46)
[2021-05-30] MEDS: DIGOXIN 0.125 MG (LANOXIN) TAB PO SCH (09:02)
[2021-05-30] MEDS: SODIUM CHLORIDE 1 GM TABLET PO SCH ×2 (09:03→20:39)
--- NOTE | 2021-05-30 09:55 | Physical Therapy Daily Note ---
PT Daily Note-Current Subjective Patient in bed pre tx, agrees reluctantly to PT, voices no complaints of pain. Appearance Patient in recliner post tx with nurse call, phone, tray, all needs met. Mental Status Patient Orientation: Person, Place, Situation Attachments: Oxygen Transfers SCALE: Activities may be completed with or without assistive devices. 4-Rpvnrvaraw-gickgqw completes the activity by him/herself with no assistance from a helper. 5-Set-up or Clean-up Assistance-helper sets up or cleans up; patient completes activity. [place] assists only prior to or following the activity. 4-Supervision or Touching Assistance-helper provides verbal cues and/or touching/steadying and/or contact guard assistance as patient completes activit y. Assistance may be provided throughout the activity or intermittently. 3-Partial/Moderate Assistance-helper does LESS THAN HALF the effort. [place] lifts, holds or supports trunk or limbs, but provides less than half the effort. 2-Substantial/Maximal Assistance-helper does MORE THAN HALF the effort. [place] lifts or holds trunk or limbs and provides more than half the effort. 5-Uldehewqx-vdgnoy does ALL the effort. Patient does none of the effort to complete the activity. Or, the assistance of 2 or more helpers is required for the patient to complete the activity. If activity was not attempted, code reason: 7-Patient Refused. 9-Not Applicable-not attempted and the patient did not perform the activity before the current illness, exacerbation or injury. 10-Not Attempted due to Environmental Limitations-(lack of equipment, weather restraints, etc.). 88-Not Attempted due to Medical Conditions or Safety Concerns. Roll Left & Right (QC): 3 Lying to Sitting/Side of Bed(Q: 3 Sit to Stand (QC): 2 Chair/Lmg-hv-Vbicq Xfer(QC): 2 Patient refuses to even try to remove her purewick, she just says "I can't do it", YOST removes it and places it again after she gets into the recliner. Patient performs supine to sit with min/mod assist and then transfers to the recliner with max assist. Exercises Supine Ex: Ankle pumps, Quad Set, Heel Slides Supine Reps: 15 Treatments bed mobility and transfers, LE strengthening Assessment Current Status: Poor Progress Patient has poor motivation, does a lot of commanding people to move her around instead of trying to do it herself. PT Short Term Goals Short Term Goals Time Frame: May 29, 2021 Roll Left & Right: 4 Sit to lyin Lying to sitting on side of be: 4 Sit to stand: 4 Chair/uos-yh-lbhhl transfer: 4 Toilet transfer: 4 Walk 10 feet: 3 Walk 50 feet with two turns: 3 PT Skilled Nursing Goals Disaster Recovery Coordinator Goals PT Skilled Nursing Goals Time Frame: Jun 09, 2021 Roll Left & Right (QC): 5 Sit to Lying (QC): 5 Lying-Sitting on Side/Bed(QC): 5 Sit to Stand (QC): 5 Chair/Tuq-dp-Yffvr Xfer(QC): 5 Toilet Transfer (QC): 5 Car Transfer (QC): 5 Does the Patient Walk: Yes Walk 10 feet (QC): 4 Walk 50ft with 2 Turns (QC): 4 Walk 150 ft (QC): 4 PT Plan Problem List Problem List: Activity Tolerance, Functional Strength, Safety, Balance, Gait, Transfer, Bed Mobility, ROM Treatment/Plan Treatment Plan: Continue Plan of Care Treatment Plan: Bed Mobility, Education, Functional Activity Tiffany, Functional Strength, Group Therapy, Gait, Safety, Therapeutic Exercise, Transfers Treatment Duration: Jul 07, 2021 Frequency: 6 times per week Estimated Hrs Per Day: .25 hour per day Patient and/or Family Agrees t: Yes Safety Risks/Education Patient Education: Transfer Techniques, Correct Positioning, Safety Issues Teaching Recipient: Patient Teaching Methods: Demonstration, Discussion Response to Teaching: Reinforcement Needed Time/GCodes Time In: 924 Time Out: 943 Total Billed Treatment Time: 19 Total Billed Treatment 1 visit FA Anamika' EZ PEREZ PT May 30, 2021 09:55
--- NOTE | 2021-05-30 10:28 | Occupational Ther Daily Note ---
OT Current Status-Daily Note Subjective Pt alert, lying in bed. Pt reluctantly agrees to therapy. Mental Status/Objective Patient Orientation: Person, Place, Time, Situation Attachments: Vasquez Catheter (PurWick), IV, Oxygen (HiFlow 2L), Telemetry ADL-Treatment Therapy Code Descriptions/Definitions Functional [place] Measure: 0=Not Assessed/NA 4=Minimal Assistance 1=Total Assistance 5=Supervision or Setup 2=Maximal Assistance 6=Modified [place] 3=Moderate Assistance 7=Complete IndependenceSCALE: Activities may be completed with or without assistive devices. 6-Zkabbbjnyq-qycgxut completes the activity by him/herself with no assistance from a helper. 5-Set-up or Clean-up Assistance-helper sets up or cleans up; patient completes activity. [place] assists only prior to or following the activity. 4-Supervision or Touching Assistance-helper provides verbal cues and/or touching/steadying and/or contact guard assistance as patient completes activity. Assistance may be provided throughout the activity or intermittently. 3-Partial/Moderate Assistance-helper does LESS THAN HALF the effort. [place] lifts, holds or supports trunk or limbs, but provides less than half the effort. 2-Substantial/Maximal Assistance-helper does MORE THAN HALF the effort. [place] lifts or holds trunk or limbs and provides more than half the effort. 7-Qikuffpnu-fncsqm does ALL the effort. Patient does none of the effort to complete the activity. Or, the assistance of 2 or more helpers is required for the patient to complete the activity. If activity was not attempted, code reason: 7-Patient Refused. 9-Not Applicable-not attempted and the patient did not perform the activity before the current illness, exacerbation or injury. 10-Not Attempted due to Environmental Limitations-(lack of equipment, weather restraints, etc.). 88-Not Attempted due to Medical Conditions or Safety Concerns. Other Treatment Pt states that she is unable to don/doff socks at home and definitely cannot do it now. Educated pt on sock aide and lower body AE for dressing. Max A for supine to EOB with HOB fully elevated. Max A x2 to transfer from EOB to recliner. Pt then able to reach and grasp items from around lower legs and off of bedside table. After therapy, pt sitting in recliner with call light/phone in reach. All needs met in room. OT Long-Term Goals Anthropology Department Chair Goals Time Frame: Jun 16, 2021 Oral Hygiene (QC): 5 Toileting Hygiene (QC): 4 Shower/Bathe Self (QC): 4 Upper Body Dressing (QC): 4 Lower Body Dressing (QC): 4 On/Off Footwear (QC): 4 1=Demonstrate adherence to instructed precautions during ADL tasks. 2=Patient will verbalize/demonstrate understanding of assistive devices/modifications for ADL. 3=Patient will improve strength/tolerance for activity to enable patient to perform ADL's. OT Education/Plan Problem List/Assessment Assessment: Decreased Activ Tolerance, Decreased UE Strength, Dependent Transfers, Impaired Bed Mobility, Impaired Self-Care Skills Discharge Recommendations Plan/Recommendations: Continue POC Treatment Plan/Plan of Care Patient would benefit from OT for education, treatment and training to promote independence in ADL's, mobility, safety and/or upper extremity function for ADL's. Plan of Care: ADL Retraining, Functional Mobility, Group Exercise/Act as Ind, UE Funct Exercise/Act Treatment Duration: Jun 16, 2021 Frequency: 3 times per week Estimated Hrs Per Day: .25 hour per day Agreement: Yes Rehab Potential: Fair Time/GCodes Start Time: 09:25 Stop Time: 09:44 Total Time Billed (hr/min): 19 Billed Treatment Time 1 visit-FA 1 (19 min) CECILIA NGO May 30, 2021 10:27
[2021-05-30] MEDS: MELATONIN 3 MG TABLET PO PRN (20:40)
[2021-05-31] MEDS: ACETAMINOPHEN 325 MG TABLET PO PRN ×2 (01:57→20:39)
[2021-05-31] MEDS: ONDANSETRON 4 MG/2 ML (SDV) Z0FRAN IVP PRN ×2 (01:58→11:06)
[2021-05-31] MEDS: RT-ALBUTEROL HFA 8.5 GM INHALER IH SCH ×4 (02:53→21:40)
[2021-05-31] MEDS: HYDROcodone/APAP 5 MG/325 MG (LORTAB) TAB PO PRN ×2 (03:48→16:48)
[2021-05-31] MEDS: inSUlin ASPART (NovoLOG) 1 UNIT/0.01 ML (CHARGE PER UNIT) SC SCH ×4 (06:00→20:38)
[2021-05-31] MEDS: FUROSEMIDE 40 MG/4 ML INJ (LASIX) IVP SCH ×2 (06:22→16:43)
--- NOTE | 2021-05-31 06:50 | Progress Note ---
Subjective Date Seen by a Provider: May 31, 2021 Time Seen by a Provider: 09:30 Subjective/Events-last exam Pt really not motivated Apathy noted Behaviors at times WBC 27.9 Procalcitonin was added to evaluate if this is a septic source CXR was ordered Review of Systems General: Fatigue, Malaise Pulmonary: Dyspnea Focused Exam Lactate Level 05/29/21 06:36: Lactic Acid Level 0.96 Objective Exam Last Set of Vital Signs Vital Signs Date Time Temp Pulse Resp B/P (MAP) Pulse Ox O2 Delivery O2 Flow Rate FiO2 05/31/21 03:53 88 93 High Flow N/C 2.00 05/31/21 00:20 36.5 20 109/66 05/29/21 16:31 28 Capillary Refill : Less Than 3 Seconds I&O Intake and Output 05/31/21 00:00 Intake Total 1000 ml Output Total 1250 ml Balance -250 ml Intake Oral 1000 ml Output Urine Total 1250 ml # Urine Diapers 4 General: Alert, Oriented X3, Cooperative, No Acute Distress Lungs: Clear to Auscultation, Normal Air Movement Heart: Other (Irregular) Psych/Mental Status: Mental Status NL, Mood NL Results Lab Laboratory Tests 05/30/21 12:53: Glucometer 198H 05/30/21 16:14: Glucometer 131H 05/30/21 20:37: Glucometer 123H 05/31/21 05:51: Glucometer 109 Assessment/Plan Assessment/Plan Assess & Plan/Chief Complaint Assessment: Atrial fibrillation with rapid ventricular response status post Cardizem drip with Cardiology consultation Chronic atrial fibrillation maintained on Eliquis for stroke prophylaxis COVID-19 pneumonia 20 days out in a fully vaccinated individual Acute hypoxic respiratory failure on Vapotherm then transitioned to nasal cannula Bacterial pneumonia Dementia Hypothyroidism Hypertension Hyperlipidemia Constipation resolved Plan: Cardiology consult eICU IV antibiotics Oxygen BiPAP Supportive care Oral anticoagulation 05/20/21: Supportive care ICU Cardizem drip Cardiology and EICU appreciated Eliquis 05/21/21: Eliquis Cardizem Cardiology appreciated Slow recovery Prognosis fair 05/22/2021: Transfer to fourth floor Supportive care 05/23/2021: Supportive care Confusion precludes good recovery 05/24/2021: DC isolation tomorrow? Await fci placement 05/25/2021: Laxatives Awaiting fci 05/26/2021: Continue therapy 05/27/2021: Supportive care Oral anticoagulation Add sodium tablets 05/28/2021: Supportive care Sodium tablets 05/29/2021: Fluid restriction Salt tablets IV Lasix 05/30/2021: Supportive care Discharge to fci Saturday05/31/2021: Supportive care Very debilitated Diagnosis/Problems Diagnosis/Problems (1) Atrial fibrillation with rapid ventricular response Clinical Quality Measures Admission Status Admission Dx Assessment: Atrial fibrillation with rapid ventricular response Chronic atrial fibrillation maintained on Eliquis for stroke prophylaxis COVID-19 pneumonia 12 days out in a fully vaccinated individual Acute hypoxic respiratory failure Bacterial pneumonia Dementia Hypothyroidism Hypertension Hyperlipidemia Plan: Cardiology consult eICU IV antibiotics Oxygen BiPAP Supportive care Oral anticoagulation PAOLA HINDS DO May 31, 2021 06:50
[2021-05-31 07:29] LABS: BASOPHILS # (AUTO) 0.1 10^3/uL (0.0-0.1); BASOPHILS % (AUTO) 0 % (0-10); EOSINOPHILS % (AUTO) 0 % (0-10); HEMATOCRIT 37 % (35-52); HEMOGLOBIN 12.1 g/dL (11.5-16.0); LYMPHOCYTES # (AUTO) 0.8 10^3/uL (1.0-4.0); LYMPHOCYTES % (AUTO) 3 % (12-44); MEAN CORPUSCULAR HEMOGLOBIN 30 pg (25-34); MEAN CORPUSCULAR HGB CONC 33 g/dL (32-36); MEAN CORPUSCULAR VOLUME 92 fL (80-99); MEAN PLATELET VOLUME 8.4 fL (9.0-12.2); MONOCYTES # (AUTO) 1.8 10^3/uL (0.0-1.0); MONOCYTES % (AUTO) 7 % (0-12); NEUTROPHILS # (AUTO) 24.5 10^3/uL (1.8-7.8); NEUTROPHILS % (AUTO) 88 % (42-75); PLATELET COUNT 228 10^3/uL (130-400); WHITE BLOOD COUNT 27.9 10^3/uL (4.3-11.0)
[2021-05-31 07:46] LABS: ALBUMIN 2.7 GM/DL (3.2-4.5); BILIRUBIN,TOTAL 0.7 MG/DL (0.1-1.0); CALCIUM 8.3 MG/DL (8.5-10.1); CREATININE SERUM 0.63 MG/DL (0.60-1.30); TOTAL PROTEIN 5.9 GM/DL (6.4-8.2)
[2021-05-31] MEDS: DIGOXIN 0.125 MG (LANOXIN) TAB PO SCH (08:58)
[2021-05-31] MEDS: PANTOPRAZOLE 20 MG TABLET (PROTONIX) PO SCH (08:59)
[2021-05-31] MEDS: APIXABAN 5 MG (ELIQUIS) TABLET PO SCH ×2 (08:59→20:39)
[2021-05-31] MEDS: ROSUVASTATIN 20 MG (CRESTOR) TABLET PO SCH (08:59)
[2021-05-31] MEDS: meTOprolol SUCCINATE 100 MG (TOPROL XL) TAB PO SCH (08:59)
[2021-05-31] MEDS: AMIODARONE 200 MG (CORDARONE) TAB PO SCH (08:59)
[2021-05-31] MEDS: SERTRALINE 50 MG (ZOLOFT) TABLET PO SCH (08:59)
[2021-05-31] MEDS: SODIUM CHLORIDE 1 GM TABLET PO SCH ×2 (09:02→20:40)
[2021-05-31] MEDS: polyethylene glycoL POWDER 17 GM (MIRALAX) PACK PO SCH ×2 (09:02→20:49)
[2021-05-31] MEDS: PSYLLIUM POWDER (METAMUCIL) 5.8 GM PACKET PO SCH (09:03)
[2021-05-31] MEDS: LACTULOSE SYRUP 10GM/15ML (ENULOSE) 30ML UDC PO SCH ×2 (09:03→20:49)
[2021-05-31] MEDS: DOCUSATE SODIUM 100 MG (COLACE) CAP PO SCH ×2 (09:13→20:39)
[2021-05-31] MEDS: SENNA W/DOCUSATE (SENOKOT S) TABLET PO SCH ×2 (09:13→20:39)
--- NOTE | 2021-05-31 10:31 | Physical Therapy Daily Note ---
PT Daily Note-Current Subjective Patient in bed pre tx, agrees to PT, voices no complaints of pain. Appearance Patient in recliner post tx with nurse call, phone, tray, all needs met. Mental Status Patient Orientation: Person, Place, Situation Attachments: Oxygen Transfers SCALE: Activities may be completed with or without assistive devices. 7-Miqrjtkqad-wjjavta completes the activity by him/herself with no assistance from a helper. 5-Set-up or Clean-up Assistance-helper sets up or cleans up; patient completes activity. [place] assists only prior to or following the activity. 4-Supervision or Touching Assistance-helper provides verbal cues and/or touching/steadying and/or contact guard assistance as patient completes activity. Assistance may be provided throughout the activity or intermittently. 3-Partial/Moderate Assistance-helper does LESS THAN HALF the effort. [place] lifts, holds or supports trunk or limbs, but provides less than half the effort. 2-Substantial/Maximal Assistance-helper does MORE THAN HALF the effort. [place] lifts or holds trunk or limbs and provides more than half the effort. 4-Ptljmvrgk-jfbnnf does ALL the effort. Patient does none of the effort to complete the activity. Or, the assistance of 2 or more helpers is required for the patient to complete the activity. If activity was not attempted, code reason: 7-Patient Refused. 9-Not Applicable-not attempted and the patient did not perform the activity before the current illness, exacerbation or injury. 10-Not Attempted due to Environmental Limitations-(lack of equipment, weather restraints, etc.). 88-Not Attempted due to Medical Conditions or Safety Concerns. Roll Left & Right (QC): 2 Lying to Sitting/Side of Bed(Q: 3 Sit to Stand (QC): 1 Chair/Rfa-so-Pxcll Xfer(QC): 1 Transfer patient to recliner from bed, mod assist for supine to sit, dependent stand pivot transfer. Exercises Seated Therapy Exercises: Ankle pumps, Long arc quads Seated Reps: 20 Treatments bed mobility and transfers, LE strengthening Assessment Current Status: Poor Progress, Regressing Patient has poor motivation, says she doesn't see the point of trying since she is going to a longterm. Patient makes no effort to move, depends on others to move her. PT Short Term Goals Short Term Goals Time Frame: May 29, 2021 Roll Left & Right: 4 Sit to lyin Lying to sitting on side of be: 4 Sit to stand: 4 Chair/cqr-bm-ietbo transfer: 4 Toilet transfer: 4 Walk 10 feet: 3 Walk 50 feet with two turns: 3 PT Fci Goals Financial Legal Assistant Goals PT Fci Goals Time Frame: Jun 09, 2021 Roll Left & Right (QC): 5 Sit to Lying (QC): 5 Lying-Sitting on Side/Bed(QC): 5 Sit to Stand (QC): 5 Chair/Kmc-fo-Gwqel Xfer(QC): 5 Toilet Transfer (QC): 5 Car Transfer (QC): 5 Does the Patient Walk: Yes Walk 10 feet (QC): 4 Walk 50ft with 2 Turns (QC): 4 Walk 150 ft (QC): 4 PT Plan Problem List Problem List: Activity Tolerance, Functional Strength, Safety, Balance, Gait, Transfer, Bed Mobility, ROM Treatment/Plan Treatment Plan: Continue Plan of Care Treatment Plan: Bed Mobility, Education, Functional Activity Tiffany, Functional Strength, Group Therapy, Gait, Safety, Therapeutic Exercise, Transfers Treatment Duration: Jul 07, 2021 Frequency: 6 times per week Estimated Hrs Per Day: .25 hour per day Patient and/or Family Agrees t: Yes Safety Risks/Education Patient Education: Transfer Techniques, Correct Positioning, Safety Issues Teaching Recipient: Patient Teaching Methods: Demonstration, Discussion Response to Teaching: Reinforcement Needed Time/GCodes Time In: 936 Time Out: 951 Total Billed Treatment Time: 15 Total Billed Treatment 1 visit FA 15 EZ PEREZ PT May 31, 2021 10:31
--- NOTE | 2021-05-31 11:11 | Diagnostic Imaging Report ---
INDICATION: Short of breath. Positive for COVID. FINDINGS: Upright portable chest shows cardiomegaly with normal vascularity. There is bibasilar atelectasis and infiltrates and probable small bilateral effusions. These findings are similar to the prior study from 05/29/2021. IMPRESSION: Stable chest. Dictated by: Dictated on workstation # [id number]
--- NOTE | 2021-05-31 11:16 | Occupational Ther Daily Note ---
OT Current Status-Daily Note Subjective Pt alert, lying in bed. Pt agrees reluctantly to participation in therapy. Pt c/o general pain, does not rate. Mental Status/Objective Patient Orientation: Person, Place, Time, Situation Attachments: Vasquez Catheter (PurWick), IV, Oxygen ADL-Treatment Pt is incontinent of urine and is dependent to cleanse self at bed level. Max A for footwear. Max A x2 to complete supine to EOB and SPT to recliner. After session, pt sitting up in recliner with call light/phone in reach. All needs m et in room. Therapy Code Descriptions/Definitions Functional [place] Measure: 0=Not Assessed/NA 4=Minimal Assistance 1=Total Assistance 5=Supervision or Setup 2=Maximal Assistance 6=Modified [place] 3=Moderate Assistance 7=Complete IndependenceSCALE: Activities may be completed with or without assistive devices. 9-Cxxoajuoff-avcujee completes the activity by him/herself with no assistance from a helper. 5-Set-up or Clean-up Assistance-helper sets up or cleans up; patient completes activity. [place] assists only prior to or following the activity. 4-Supervision or Touching Assistance-helper provides verbal cues and/or touching/steadying and/or contact guard assistance as patient completes activity. Assistance may be provided throughout the activity or intermittently. 3-Partial/Moderate Assistance-helper does LESS THAN HALF the effort. [place] lifts, holds or supports trunk or limbs, but provides less than half the effort. 2-Substantial/Maximal Assistance-helper does MORE THAN HALF the effort. [place] lifts or holds trunk or limbs and provides more than half the effort. 4-[place]-ilfhbx does ALL the effort. Patient does none of the effort to complete the activity. Or, the assistance of 2 or more helpers is required for the patient to complete the activity. If activity was not attempted, code reason: 7-Patient Refused. 9-Not Applicable-not attempted and the patient did not perform the activity before the current illness, exacerbation or injury. 10-Not Attempted due to Environmental Limitations-(lack of equipment, weather restraints, etc.). 88-Not Attempted due to Medical Conditions or Safety Concerns. On/Off Footwear: 2 Toileting Hygiene (QC): 1 OT Senior Care Goals Senior Care Goals Time Frame: Jun 16, 2021 Oral Hygiene (QC): 5 Toileting Hygiene (QC): 4 Shower/Bathe Self (QC): 4 Upper Body Dressing (QC): 4 Lower Body Dressing (QC): 4 On/Off Footwear (QC): 4 1=Demonstrate adherence to instructed precautions during ADL tasks. 2=Patient will verbalize/demonstrate understanding of assistive devices/modifications for ADL. 3=Patient will improve strength/tolerance for activity to enable patient to perform ADL's. OT Education/Plan Problem List/Assessment Assessment: Decreased Activ Tolerance, Impaired Self-Care Skills Discharge Recommendations Plan/Recommendations: Continue POC Treatment Plan/Plan of Care Patient would benefit from OT for education, treatment and training to promote independence in ADL's, mobility, safety and/or upper extremity function for ADL' s. Plan of Care: ADL Retraining, Functional Mobility, Group Exercise/Act as Ind, UE Funct Exercise/Act Treatment Duration: Jun 16, 2021 Frequency: 3 times per week Estimated Hrs Per Day: .25 hour per day Agreement: Yes Rehab Potential: Fair Time/GCodes Start Time: 09:37 Stop Time: 09:52 Total Time Billed (hr/min): 15 Billed Treatment Time 1 visit-ADL 1 (15 min) CECILIA NGO May 31, 2021 11:16
[2021-05-31] MEDS: MELATONIN 3 MG TABLET PO PRN (20:39)
[2021-06-01] MEDS: HYDROcodone/APAP 5 MG/325 MG (LORTAB) TAB PO PRN ×4 (00:34→22:01)
[2021-06-01] MEDS: RT-ALBUTEROL HFA 8.5 GM INHALER IH SCH ×4 (02:43→23:25)
[2021-06-01] MEDS: inSUlin ASPART (NovoLOG) 1 UNIT/0.01 ML (CHARGE PER UNIT) SC SCH ×4 (06:03→22:00)
[2021-06-01] MEDS: CATHETER FLUSH 10 ML SYR IV PRN (06:12)
[2021-06-01] MEDS: FUROSEMIDE 40 MG/4 ML INJ (LASIX) IVP SCH ×2 (06:12→18:06)
--- NOTE | 2021-06-01 06:39 | Discharge Inst-Skilled Nursing ---
Discharge Inst-Skilled NF Reconcile Patient Problems Problems Reviewed?: Yes Patient Instructions Patient Problems: Post COVID Dementia Goal: [place] Consult/Follow Up/Orders Follow Up Appt.: PCP 1 week Skilled NF Admit to: Via [facility] Certification ([facility]) I certify that SNF services are required to be given on an inpatient basis because of the above named patient's need for usp care on a continuing basis for the conditions(s) for which he/she was receiving inpatient hospital services prior to his/her transfer to the SNF. [facility] Facility Order: Nursing Services, [place]-Evaluate & Treat, Physical Therapy-Evaluate & Treat, Speech Language-Evaluate & Treat Oxygen Delivery Method: High Flow N/C Discharge Diet: No Restrictions Resuscitation Status: Full Code New & Resume Previous Orders Tiffanie Pham Jun 01, 2021 06:37 TIFFANIE PHAM DO Jun 01, 2021 06:39
[2021-06-01 07:00] LABS: BASOPHILS % (AUTO) 0 % (0-10); EOSINOPHILS % (AUTO) 0 % (0-10); HEMATOCRIT 41 % (35-52); HEMOGLOBIN 13.5 g/dL (11.5-16.0); LYMPHOCYTES # (AUTO) 0.5 10^3/uL (1.0-4.0); LYMPHOCYTES % (AUTO) 2 % (12-44); MEAN CORPUSCULAR HEMOGLOBIN 30 pg (25-34); MEAN CORPUSCULAR HGB CONC 33 g/dL (32-36); MEAN CORPUSCULAR VOLUME 91 fL (80-99); MEAN PLATELET VOLUME 8.6 fL (9.0-12.2); MONOCYTES # (AUTO) 1.1 10^3/uL (0.0-1.0); MONOCYTES % (AUTO) 5 % (0-12); NEUTROPHILS # (AUTO) 22.1 10^3/uL (1.8-7.8); NEUTROPHILS % (AUTO) 91 % (42-75); PLATELET COUNT 226 10^3/uL (130-400); WHITE BLOOD COUNT 24.2 10^3/uL (4.3-11.0)
[2021-06-01 07:18] LABS: ALBUMIN 2.8 GM/DL (3.2-4.5); BILIRUBIN,TOTAL 0.7 MG/DL (0.1-1.0); CALCIUM 8.6 MG/DL (8.5-10.1); CREATININE SERUM 0.62 MG/DL (0.60-1.30); POTASSIUM 3.9 MMOL/L (3.6-5.0); TOTAL PROTEIN 6.5 GM/DL (6.4-8.2)
--- NOTE | 2021-06-01 09:34 | Physical Therapy Daily Note ---
PT Daily Note-Current Subjective Patient in bed pre tx, agrees to PT reluctantly, has unrated low back pain. Patient has a purewick, YOST removed and replaced it. Appearance Patient in recliner post tx with nurse call, phone, tray, all needs met. Mental Status Patient Orientation: Person, Place, Situation Attachments: Oxygen Transfers SCALE: Activities may be completed with or without assistive devices. 1-Nnigfaikye-darzccj completes the activity by him/herself with no assistance from a helper. 5-Set-up or Clean-up Assistance-helper sets up or cleans up; patient completes activity. [place] assists only prior to or following the activity. 4-Supervision or Touching Assistance-helper provides verbal cues and/or touching/steadying and/or contact guard assistance as patient completes activity. Assistance may be provided throughout the activity or intermittently. 3-Partial/Moderate Assistance-helper does LESS THAN HALF the effort. [place] lifts, holds or supports trunk or limbs, but provides less than half the effort. 2-Substantial/Maximal Assistance-helper does MORE THAN HALF the effort. [place] lifts or holds trunk or limbs and provides more than half the effort. 1-Lwnlsegrm-zscqwv does ALL the effort. Patient does none of the effort to complete the activity. Or, the assistance of 2 or more helpers is required for the patient to complete the activity. If activity was not attempted, code reason: 7-Patient Refused. 9-Not Applicable-not attempted and the patient did not perform the activity before the current illness, exacerbation or injury. 10-Not Attempted due to Environmental Limitations-(lack of equipment, weather restraints, etc.). 88-Not Attempted due to Medical Conditions or Safety Concerns. Roll Left & Right (QC): 1 Lying to Sitting/Side of Bed(Q: 2 Sit to Stand (QC): 1 Chair/Fih-mc-Zqyad Xfer(QC): 1 Attempted to get patient to assist with rolling and she just says "I can't". She does assist a little with supine to sit but still max assist. Dependent stand pivot transfer to recliner. Exercises Seated Therapy Exercises: Ankle pumps, Long arc quads Seated Reps: 20 Treatments bed mobility and transfers, LE strengthening Assessment Current Status: Poor Progress no change in mobility, poor motivation PT Short Term Goals Short Term Goals Time Frame: May 29, 2021 Roll Left & Right: 4 Sit to lyin Lying to sitting on side of be: 4 Sit to stand: 4 Chair/exw-ct-ekjbp transfer: 4 Toilet transfer: 4 Walk 10 feet: 3 Walk 50 feet with two turns: 3 PT Behavioral Health Therapist Goals [facility] Goals PT Behavioral Health Therapist Goals Time Frame: Jun 09, 2021 Roll Left & Right (QC): 5 Sit to Lying (QC): 5 Lying-Sitting on Side/Bed(QC): 5 Sit to Stand (QC): 5 Chair/Awe-lj-Bklok Xfer(QC): 5 Toilet Transfer (QC): 5 Car Transfer (QC): 5 Does the Patient Walk: Yes Walk 10 feet (QC): 4 Walk 50ft with 2 Turns (QC): 4 Walk 150 ft (QC): 4 PT Plan Problem List Problem List: Activity Tolerance, Functional Strength, Safety, Balance, Gait, Transfer, Bed Mobility, ROM Treatment/Plan Treatment Plan: Continue Plan of Care Treatment Plan: Bed Mobility, Education, Functional Activity Tiffany, Functional Strength, Group Therapy, Gait, Safety, Therapeutic Exercise, Transfers Treatment Duration: Jul 07, 2021 Frequency: 6 times per week Estimated Hrs Per Day: .25 hour per day Patient and/or Family Agrees t: Yes Safety Risks/Education Patient Education: Transfer Techniques, Correct Positioning, Safety Issues Teaching Recipient: Patient Teaching Methods: Demonstration, Discussion Response to Teaching: Reinforcement Needed Time/GCodes Time In: 0838 Time Out: 0849 Total Billed Treatment Time: 11 Total Billed Treatment 1 visit FA EZ ALMANZAR PT Jun 01, 2021 09:34
--- NOTE | 2021-06-01 09:50 | Occupational Ther Daily Note ---
OT Current Status-Daily Note Subjective Pt alert, lying in bed. Pt agree reluctantly to therapy. C/o pain though did not rate. Mental Status/Objective Patient Orientation: Person, Place, Time, Situation Attachments: Vasquez Catheter ([place]), IV, Telemetry ADL-Treatment Pt incontinent of urine. Max A for toileting hygiene. Max A roll toward R side then max A to sit EOB. Sat EOB with min A. Max A x2 for SPT from EOB to recliner. After session, pt sitting in recliner with call light/phone in reach. All needs met in room. Nrsg aware of pt's position. Therapy Code Descriptions/Definitions Functional Spearman Measure: 0=Not Assessed/NA 4=Minimal Assistance 1=Total Assistance 5=Supervision or Setup 2=Maximal Assistance 6=Modified Spearman 3=Moderate Assistance 7=Complete IndependenceSCALE: Activities may be completed with or without assistive devices. 5-Mspebdsqrj-fmgxfjd completes the activity by him/herself with no assistance from a helper. 5-Set-up or Clean-up Assistance-helper sets up or cleans up; patient completes activity. [place] assists only prior to or following the activity. 4-Supervision or Touching Assistance-helper provides verbal cues and/or touchin g/steadying and/or contact guard assistance as patient completes activity. Assistance may be provided throughout the activity or intermittently. 3-Partial/Moderate Assistance-helper does LESS THAN HALF the effort. [place] lifts, holds or supports trunk or limbs, but provides less than half the effort. 2-Substantial/Maximal Assistance-helper does MORE THAN HALF the effort. [place] lifts or holds trunk or limbs and provides more than half the effort. 8-Jelltupsj-nyxgdq does ALL the effort. Patient does none of the effort to complete the activity. Or, the assistance of 2 or more helpers is required for the patient to complete the activity. If activity was not attempted, code reason: 7-Patient Refused. 9-Not Applicable-not attempted and the patient did not perform the activity before the current illness, exacerbation or injury. 10-Not Attempted due to Environmental Limitations-(lack of equipment, weather restraints, etc.). 88-Not Attempted due to Medical Conditions or Safety Concerns. OT Carpet Inspector Goals Carpet Inspector Goals Time Frame: Jun 16, 2021 Oral Hygiene (QC): 5 Toileting Hygiene (QC): 4 Shower/Bathe Self (QC): 4 Upper Body Dressing (QC): 4 Lower Body Dressing (QC): 4 On/Off Footwear (QC): 4 1=Demonstrate adherence to instructed precautions during ADL tasks. 2=Patient will verbalize/demonstrate understanding of assistive devices /modifications for ADL. 3=Patient will improve strength/tolerance for activity to enable patient to perform ADL's. OT Education/Plan Problem List/Assessment Assessment: Dependent Transfers, Impaired Bed Mobility, Impaired Self-Care Skills Discharge Recommendations Plan/Recommendations: Continue POC Treatment Plan/Plan of Care Patient would benefit from OT for education, treatment and training to promote independence in ADL's, mobility, safety and/or upper extremity function for ADL's. Plan of Care: ADL Retraining, Functional Mobility, Group Exercise/Act as Ind, UE Funct Exercise/Act Treatment Duration: Jun 16, 2021 Frequency: 3 times per week Estimated Hrs Per Day: .25 hour per day Agreement: Yes Rehab Potential: Fair Time/GCodes Start Time: 08:38 Stop Time: 08:49 Total Time Billed (hr/min): 11 Billed Treatment Time 1 visit-FA 1 (11 min) CECILIA NGO Jun 01, 2021 09:50
[2021-06-01] MEDS: ALPRAZolam 0.25 MG (XANAX) TAB PO PRN (10:01)
[2021-06-01] MEDS: DIGOXIN 0.125 MG (LANOXIN) TAB PO SCH (10:01)
[2021-06-01] MEDS: SENNA W/DOCUSATE (SENOKOT S) TABLET PO SCH ×2 (10:01→22:01)
[2021-06-01] MEDS: PANTOPRAZOLE 20 MG TABLET (PROTONIX) PO SCH (10:02)
[2021-06-01] MEDS: AMIODARONE 200 MG (CORDARONE) TAB PO SCH (10:02)
[2021-06-01] MEDS: DOCUSATE SODIUM 100 MG (COLACE) CAP PO SCH ×2 (10:02→22:01)
[2021-06-01] MEDS: APIXABAN 5 MG (ELIQUIS) TABLET PO SCH ×2 (10:02→22:01)
[2021-06-01] MEDS: PSYLLIUM POWDER (METAMUCIL) 5.8 GM PACKET PO SCH (10:02)
[2021-06-01] MEDS: SERTRALINE 50 MG (ZOLOFT) TABLET PO SCH (10:02)
[2021-06-01] MEDS: ROSUVASTATIN 20 MG (CRESTOR) TABLET PO SCH (10:02)
[2021-06-01] MEDS: meTOprolol SUCCINATE 100 MG (TOPROL XL) TAB PO SCH (10:02)
[2021-06-01] MEDS: LACTULOSE SYRUP 10GM/15ML (ENULOSE) 30ML UDC PO SCH ×2 (10:02→22:11)
[2021-06-01] MEDS: polyethylene glycoL POWDER 17 GM (MIRALAX) PACK PO SCH ×2 (10:04→22:11)
[2021-06-01] MEDS: SODIUM CHLORIDE 1 GM TABLET PO SCH ×2 (10:16→22:04)
[2021-06-01] MEDS ORDERED: NF-NACL1GT PO (10:37)
[2021-06-01] MEDS ORDERED: MTP100TCR PO (10:37)
[2021-06-01] MEDS ORDERED: DIGO125T18 PO (10:37)
[2021-06-01] MEDS ORDERED: SENN1TAB76 PO (10:37)
[2021-06-01] MEDS ORDERED: ROSU20TA32 PO (10:37)
[2021-06-01] MEDS ORDERED: DILT180C85 PO (10:37)
[2021-06-01] MEDS ORDERED: INHA1INH MC (10:37)
[2021-06-01] MEDS ORDERED: FURO20TA4 PO (10:37)
[2021-06-01] MEDS ORDERED: APIX5TAB PO (10:37)
[2021-06-01] MEDS ORDERED: RT-ALBUINH IH (10:37)
[2021-06-01] MEDS ORDERED: AMLO-250 PO (10:37)
[2021-06-01] MEDS ORDERED: LOSA50TA63 PO (10:37)
[2021-06-01] MEDS ORDERED: INSU100I14 SQ (10:37)
[2021-06-01] MEDS ORDERED: SERT-412 PO (10:37)
[2021-06-01] MEDS ORDERED: OMEP20CA18 PO (10:37)
[2021-06-01] MEDS ORDERED: AMIO200T65 PO (10:37)
--- NOTE | 2021-06-01 10:46 | Progress Note ---
Subjective Date Seen by a Provider: Jun 01, 2021 Time Seen by a Provider: 11:45 Subjective/Events-last exam Pt ready for DC tomorrow AF maintained on telemetry Out of isolation tomorrow Checked meds and labs Review of Systems General: Fatigue, Malaise Objective Exam Last Set of Vital Signs Vital Signs Date Time Temp Pulse Resp B/P (MAP) Pulse Ox O2 Delivery O2 Flow Rate FiO2 06/01/21 07:59 35.5 108 22 133/69 95 High Flow N/C 2.50 05/29/21 16:31 28 Capillary Refill : Less Than 3 Seconds I&O Intake and Output 06/01/21 00:00 Intake Total 725 ml Output Total 800 ml Balance -75 ml Intake Oral 725 ml Output Urine Total 800 ml General: Alert, Oriented X3, Cooperative, No Acute Distress, Other (Chronically ill and debilitated) Lungs: Clear to Auscultation Heart: Regular Rate Results Lab Laboratory Tests 05/31/21 11:06: Glucometer 110 05/31/21 16:42: Glucometer 155H 05/31/21 20:37: Glucometer 159H 06/01/21 05:20: Glucometer 116H 06/01/21 06:30: White Blood Count 24.2H, Red Blood Count 4.53, Hemoglobin 13.5, Hematocrit 41, M ailyn Corpuscular Volume 91, Mean Corpuscular Hemoglobin 30, Mean Corpuscular Hemoglobin Concent 33, Red Cell Distribution Width 15.0H, Platelet Count 226, Mean Platelet Volume 8.6L, Immature Granulocyte % (Auto) 2, Neutrophils (%) (Auto) 91H, Lymphocytes (%) (Auto) 2L, Monocytes (%) (Auto) 5, Eosinophils (%) (Auto) 0, Basophils (%) (Auto) 0, Neutrophils # (Auto) 22.1H, Lymphocytes # (Auto) 0.5L, Monocytes # (Auto) 1.1H, Eosinophils # (Auto) 0.0, Basophils # (Auto) 0.0, Immature Granulocyte # (Auto) 0.4H, Sodium Level 126L, Potassium Level 3.9, Chloride Level 84L, Carbon Dioxide Level 29, Anion Gap 13, Blood Urea Nitrogen 11, Creatinine 0.62, Estimat Glomerular Filtration Rate 93, BUN/Creatinine Ratio 18, Glucose Level 131H, Calcium Level 8.6, Corrected Calcium 9.6, Magnesium Level 1.9, Total Bilirubin 0.7, Aspartate Amino Transf (AST/SGOT) 24, Alanine Aminotransferase (ALT/SGPT) 33, Alkaline Phosphatase 79, Total Protein 6.5, Albumin 2.8L Assessment/Plan Assessment/Plan Assess & Plan/Chief Complaint Assessment: Atrial fibrillation with rapid ventricular response status post Cardizem drip with Cardiology consultation Chronic atrial fibrillation maintained on Eliquis for stroke prophylaxis COVID-19 pneumonia 20 days out in a fully vaccinated individual Acute hypoxic respiratory failure on Vapotherm then transitioned to nasal cannula Bacterial pneumonia Dementia Hypothyroidism Hypertension Hyperlipidemia Constipation resolved Plan: Cardiology consult eICU IV antibiotics Oxygen BiPAP Supportive care Oral anticoagulation 05/20/21: Supportive care ICU Cardizem drip Cardiology and EICU appreciated Eliquis 05/21/21: Eliquis Cardizem Cardiology appreciated Slow recovery Prognosis fair 05/22/2021: Transfer to fourth floor Supportive care 05/23/2021: Supportive care Confusion precludes good recovery 05/24/2021: DC isolation tomorrow? Await custodial placement 05/25/2021: Laxatives Awaiting custodial 05/26/2021: Continue therapy 05/27/2021: Supportive care Oral anticoagulation Add sodium tablets 05/28/2021: Supportive care Sodium tablets 05/29/2021: Fluid restriction Salt tablets IV Lasix 05/30/2021: Supportive care Discharge to custodial Saturday05/31/2021: Supportive care Very debilitated 06/01/2021: Discharge to custodial tomorrow Diagnosis/Problems Diagnosis/Problems (1) Atrial fibrillation with rapid ventricular response Clinical Quality Measures Admission Status Admission Dx Assessment: Atrial fibrillation with rapid ventricular response Chronic atrial fibrillation maintained on Eliquis for stroke prophylaxis COVID-19 pneumonia 12 days out in a fully vaccinated individual Acute hypoxic respiratory failure Bacterial pneumonia Dementia Hypothyroidism Hypertension Hyperlipidemia Plan: Cardiology consult eICU IV antibiotics Oxygen BiPAP Supportive care Oral anticoagulation PAOLA HINDS DO Jun 01, 2021 10:45
--- NOTE | 2021-06-01 17:47 | Cardiology Progress Note ---
Progress Note-Cardiology Events since last exam Date Seen by Provider: Jun 01, 2021 Time Seen by Provider: 17:40 Events since last exam I was asked to see the patient again today due to recurrent atrial fibrillation and flutter. I did not meet with the patient due to her Covid status. Early this morning I was told that the patient had recurrent atrial flutter. Heart rates were intermittently elevated. Vitals Last set of Vitals Signs Vital Signs 05/29/21 06/01/21 16:31 16:11 Temp 35.4 Pulse 105 Resp 22 B/P (MAP) 109/78 Pulse Ox 90 O2 Delivery High Flow N/C O2 Flow Rate 2.50 FiO2 28 Labs Labs Laboratory Tests 06/01/21 06:30 Exam Vital Signs Vital Signs Date Time Temp Pulse Resp B/P (MAP) Pulse Ox O2 Delivery O2 Flow Rate FiO2 06/01/21 16:11 35.4 105 22 109/78 90 High Flow N/C 2.50 05/29/21 16:31 28 Physical Exam I did not examine the patient due to her Covid status. Labs Laboratory Tests Test 05/31/21 20:37 06/01/21 05:20 06/01/21 06:30 06/01/21 12:37 Range/Units Glucometer 159 H 116 H 175 H 70-110 MG/DL White Blood Count 24.2 H 4.3-11.0 10^3/uL Red Blood Count 4.53 3.80-5.11 10^6/uL Hemoglobin 13.5 11.5-16.0 g/dL Hematocrit 41 35-52 % Mean Corpuscular Volume 91 80-99 fL Mean Corpuscular Hemoglobin 30 25-34 pg Mean Corpuscular Hemoglobin Concent 33 32-36 g/dL Red Cell Distribution Width 15.0 H 10.0-14.5 % Platelet Count 226 130-400 10^3/uL Mean Platelet Volume 8.6 L 9.0-12.2 fL Immature Granulocyte % (Auto) 2 % Neutrophils (%) (Auto) 91 H 42-75 % Lymphocytes (%) (Auto) 2 L 12-44 % Monocytes (%) (Auto) 5 0-12 % Eosinophils (%) (Auto) 0 0-10 % Basophils (%) (Auto) 0 0-10 % Neutrophils # (Auto) 22.1 H 1.8-7.8 10^3/uL Lymphocytes # (Auto) 0.5 L 1.0-4.0 10^3/uL Monocytes # (Auto) 1.1 H 0.0-1.0 10^3/uL Eosinophils # (Auto) 0.0 0.0-0.3 10^3/uL Basophils # (Auto) 0.0 0.0-0.1 10^3/uL Immature Granulocyte # (Auto) 0.4 H 0.0-0.1 10^3/uL Sodium Level 126 L 135-145 MMOL/L Potassium Level 3.9 3.6-5.0 MMOL/L Chloride Level 84 L 98-107 MMOL/L Carbon Dioxide Level 29 21-32 MMOL/L Anion Gap 13 5-14 MMOL/L Blood Urea Nitrogen 11 7-18 MG/DL Creatinine 0.62 0.60-1.30 MG/DL Estimat Glomerular Filtration Rate 93 BUN/Creatinine Ratio 18 Glucose Level 131 H 70-105 MG/DL Calcium Level 8.6 8.5-10.1 MG/DL Corrected Calcium 9.6 8.5-10.1 MG/DL Magnesium Level 1.9 1.6-2.4 MG/DL Total Bilirubin 0.7 0.1-1.0 MG/DL Aspartate Amino Transf (AST/SGOT) 24 5-34 U/L Alanine Aminotransferase (ALT/SGPT) 33 0-55 U/L Alkaline Phosphatase 79 40-136 U/L Total Protein 6.5 6.4-8.2 GM/DL Albumin 2.8 L 3.2-4.5 GM/DL Diagnosis/Problems Diagnosis/Problems (1) Persistent atrial fibrillation Assessment & Plan: She had been on amiodarone at home which has been continued. She is on diltiazem, metoprolol and digoxin for rate control and apixaban for stroke prophylaxis. Her heart rates are intermittently elevated. If this persists, we may need to increase her dose of amiodarone temporarily. 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 Continue metoprolol and statin medication. She is not taking aspirin because she is on apixaban for the atrial fibrillation. (3) Primary hypertension Assessment & Plan: Blood pressure is well controlled with the present combination of medications. (4) Mixed hyperlipidemia Assessment & Plan: Continue rosuvastatin NGUYỄN JOHNSON JR, MD Jun 01, 2021 17:47
[2021-06-02] MEDS: RT-ALBUTEROL HFA 8.5 GM INHALER IH SCH ×2 (02:51→09:00)
--- NOTE | 2021-06-02 06:14 | Discharge Summary ---
Diagnosis/Chief Complaint Date of Admission May 19, 2021 at 10:43 Date of Discharge Discharge Date: Jun 02, 2021 Discharge Diagnosis Assessment: Atrial fibrillation with rapid ventricular response status post Cardizem drip with Cardiology consultation Chronic atrial fibrillation maintained on Eliquis for stroke prophylaxis COVID-19 pneumonia 20 days out in a fully vaccinated individual Acute hypoxic respiratory failure on Vapotherm then transitioned to nasal cannula Bacterial pneumonia Dementia Hypothyroidism Hypertension Hyperlipidemia Constipation resolved Plan: Cardiology consult eICU IV antibiotics Oxygen BiPAP Supportive care Oral anticoagulation 05/20/21: Supportive care ICU Cardizem drip Cardiology and EICU appreciated Eliquis 05/21/21: Eliquis Cardizem Cardiology appreciated Slow recovery Prognosis fair 05/22/2021: Transfer to fourth floor Supportive care 05/23/2021: Supportive care Confusion precludes good recovery 05/24/2021: DC isolation tomorrow? Await usp placement 05/25/2021: Laxatives Awaiting usp 05/26/2021: Continue therapy 05/27/2021: Supportive care Oral anticoagulation Add sodium tablets 05/28/2021: Supportive care Sodium tablets 05/29/2021: Fluid restriction Salt tablets IV Lasix 05/30/2021: Supportive care Discharge to usp Saturday05/31/2021: Supportive care Very debilitated 06/01/2021: Discharge to usp tomorrow Reason Hospital Visit Chief complaint: Atrial fibrillation with rapid ventricular response and Covid positive pneumonia patient History of present illness: This is an 80-year-old white female who presented to ICU From [facility] due to need of higher level of care due to atrial fibrillation with rapid ventricular response. She has chronic atrial fibrillation and maintained on Eliquis. She is on day #12 of COVID-19 when she was admitted 2 days prior from [facility] due to diversion status there. She is fully vaccinated. Cardizem drip was started. Cardiology was notified and eICU. IV antibiotics maintained. She was able to tolerate BiPAP in short intervals and was maintained on Vapotherm at [facility]. Dementia was reported by daughter consistent with some of patient's statements Discharge Summary Discharge Physical Examination Allergies: Coded Allergies: [id number] Reductase Inhibitor (Verified Allergy, Unknown, 05/19/21) bacitracin (Verified Allergy, Unknown, 05/19/21) hydrogen peroxide (Verified Allergy, Unknown, 05/19/21) iodine (Verified Allergy, Unknown, 05/19/21) lidocaine (Verified Allergy, Unknown, 05/19/21) neomycin (Verified Allergy, Unknown, 05/19/21) polymyxin B (Verified Allergy, Unknown, 05/19/21) Vitals & I&Os Vital Signs Date Time Temp Pulse Resp B/P (MAP) Pulse Ox O2 Delivery O2 Flow Rate FiO2 06/02/21 15:07 06/02/21 13:00 96 06/02/21 11:52 35.6 22 93 Nasal Cannula 2.00 05/29/21 16:31 28 General Appearance: Alert, Oriented X3, Cooperative, Other (Poor recall) Respiratory: Clear to Auscultation Hospital Course Was the Problem List Reviewed?: Yes Hospital course: Patient had a lengthy hospital course was transferred from [facility] after flaco Covid and assessed to have acute hypoxic respiratory failure. Patient was aggressively treated in the ICU on Vapotherm and ultimately weaned down to move down to fourth floor. Atrial fibrillation with RVR was managed by cardiology. Anticoagulation maintained. Antibiotics completed along with IV steroids. Dementia was an issue which required usp at discharge. Hyponatremia from [facility] managed with fluid restrictions and salt tablets. Overall prognosis is poor. Labs (last 24 hrs) Laboratory Tests 05/19/21 11:17: Glucometer 227H 05/19/21 11:50: White Blood Count 14.2H, Red Blood Count 3.82, Hemoglobin 11.7, Hematocrit 36, Mean Corpuscular Volume 93, Mean Corpuscular Hemoglobin 31, Mean Corpuscular Hemoglobin Concent 33, Red Cell Distribution Width 15.6H, Platelet Count 280, Mean Platelet Volume 8.6L, Immature Granulocyte % (Auto) 1, Neutrophils (%) (Auto) 89H, Lymphocytes (%) (Auto) 3L, Monocytes (%) (Auto) 7, Eosinophils (%) (Auto) 0, Basophils (%) (Auto) 0, Neutrophils # (Auto) 12.6H, Lymphocytes # (Auto) 0.4L, Monocytes # (Auto) 0.9, Eosinophils # (Auto) 0.0, Basophils # (Auto) 0.0, Immature Granulocyte # (Auto) 0.2H, Neutrophils % (Manual) 88, Lym phocytes % (Manual) 5, Monocytes % (Manual) 5, Eosinophils % (Manual) 0, Basophils % (Manual) 0, Band Neutrophils 2, Anisocytosis SLIGHT, Sodium Level 127L, Potassium Level 4.2, Chloride Level 93L, Carbon Dioxide Level 22, Anion Gap 12, Blood Urea Nitrogen 19H, Creatinine 0.78, Estimat Glomerular Filtration Rate 71, BUN/Creatinine Ratio 24, Glucose Level 228H, Calcium Level 9.0, Corrected Calcium 9.6, Total Bilirubin 0.5, Aspartate Amino Transf (AST/SGOT) 31, Alanine Aminotransferase (ALT/SGPT) 46, Alkaline Phosphatase 67, Total Protein 7.3, Albumin 3.2 05/19/21 16:00: Glucometer 188H 05/19/21 20:24: Glucometer 209H 05/20/21 04:50: White Blood Count 16.0H, Red Blood Count 3.70L, Hemoglobin 11.2L, Hematocrit 34L , Mean Corpuscular Volume 92, Mean Corpuscular Hemoglobin 30, Mean Corpuscular Hemoglobin Concent 33, Red Cell Distribution Width 15.7H, Platelet Count 286, Mean Platelet Volume 8.3L, Immature Granulocyte % (Auto) 1, Neutrophils (%) (Auto) 91H, Lymphocytes (%) (Auto) 3L, Monocytes (%) (Auto) 5, Eosinophils (%) (Auto) 0, Basophils (%) (Auto) 0, Neutrophils # (Auto) 14.6H, Lymphocytes # (Auto) 0.5L, Monocytes # (Auto) 0.7, Eosinophils # (Auto) 0.0, Basophils # (Auto) 0.0, Immature Granulocyte # (Auto) 0.1, Sodium Level 128L, Potassium Level 4.4, Chloride Level 96L, Carbon Dioxide Level 22, Anion Gap 10, Blood Urea Nitrogen 18, Creatinine 0.76, Estimat Glomerular Filtration Rate 73, BUN/Creatinine Ratio 24, Glucose Level 229H, Calcium Level 8.5, Corrected Calcium 9.4, Total Bilirubin 0.5, Aspartate Amino Transf (AST/SGOT) 19, Alanine Aminotransferase (ALT/SGPT) 35, Alkaline Phosphatase 56, Total Protein 6.4, Albumin 2.9L 05/20/21 10:54: Glucometer 236H 05/20/21 15:53: Glucometer 282H 05/20/21 20:28: Glucometer 233H 05/21/21 05:28: White Blood Count 25.1H, Red Blood Count 4.09, Hemoglobin 12.4, Hematocrit 38, Mean Corpuscular Volume 92, Mean Corpuscular Hemoglobin 30, Mean Corpuscular Hemoglobin Concent 33, Red Cell Distribution Width 15.8H, Platelet Count 371, Mean Platelet Volume 8.3L, Immature Granulocyte % (Auto) 1, Neutrophils (%) (Auto) 91H, Lymphocytes (%) (Auto) 2L, Monocytes (%) (Auto) 5, Eosinophils (%) (Auto) 0, Basophils (%) (Auto) 0, Neutrophils # (Auto) 22.9H, Lymphocytes # (Auto) 0.6L, Monocytes # (Auto) 1.3H, Eosinophils # (Auto) 0.0, Basophils # (Auto) 0.0, Immature Granulocyte # (Auto) 0.3H, Sodium Level 125*L, Potassium Level 4.4, Chloride Level 93L, Carbon Dioxide Level 21, Anion Gap 11, Blood Urea Nitrogen 22H, Creatinine 0.81, Estimat Glomerular Filtration Rate 68, BUN/Creatinine Ratio 27, Glucose Level 206H, Serum Osmolality 276L, Calcium Level 8.9, Corrected Calcium 9.5, Total Bilirubin 0.6, Aspartate Amino Transf (AST/SGOT) 18, Alanine Aminotransferase (ALT/SGPT) 32, Alkaline Phosphatase 74, Total Protein 7.1, Albumin 3.2 05/21/21 06:30: Urine Osmolality 512, Urine Random Sodium <20 05/21/21 10:38: Glucometer 198H 05/21/21 16:25: Glucometer 235H 05/22/21 05:20: White Blood Count 20.4H, Red Blood Count 3.79L, Hemoglobin 11.4L, Hematocrit 35, Mean Corpuscular Volume 92, Mean Corpuscular Hemoglobin 30, Mean Corpuscular He moglobin Concent 33, Red Cell Distribution Width 15.8H, Platelet Count 314, Mean Platelet Volume 8.5L, Immature Granulocyte % (Auto) 1, Neutrophils (%) (Auto) 93H, Lymphocytes (%) (Auto) 2L, Monocytes (%) (Auto) 4, Eosinophils (%) (Auto) 0, Basophils (%) (Auto) 0, Neutrophils # (Auto) 19.0H, Lymphocytes # (Auto) 0.4L , Monocytes # (Auto) 0.9, Eosinophils # (Auto) 0.0, Basophils # (Auto) 0.0, Immature Granulocyte # (Auto) 0.2H, Neutrophils % (Manual) 96, Lymphocytes % (Manual) 1, Monocytes % (Manual) 2, Myelocytes % 1, Anisocytosis SLIGHT, Sodium Level 131L, Potassium Level 4.7, Chloride Level 99, Carbon Dioxide Level 22, Anion Gap 10, Blood Urea Nitrogen 18, Creatinine 0.72, Estimat Glomerular Filtration Rate 78, BUN/Creatinine Ratio 25, Glucose Level 205H, Calcium Level 8.5, Corrected Calcium 9.5, Phosphorus Level 3.4, Magnesium Level 2.3, Total Bilirubin 0.6, Aspartate Amino Transf (AST/SGOT) 13, Alanine Aminotransferase (ALT/SGPT) 23, Alkaline Phosphatase 55, Total Protein 5.9L, Albumin 2.7L, Digoxin Level 0.63L 05/22/21 10:44: Glucometer 241H 05/22/21 15:43: Glucometer 210H 05/22/21 20:23: Glucometer 255H 05/23/21 05:19: White Blood Count 21.6H, Red Blood Count 3.97, Hemoglobin 11.9, Hematocrit 37, Mean Corpuscular Volume 93, Mean Corpuscular Hemoglobin 30, Mean Corpuscular Hemoglobin Concent 32, Red Cell Distribution Width 15.9H, Platelet Count 327, Mean Platelet Volume 8.4L, Immature Granulocyte % (Auto) 1, Neutrophils (%) (Auto) 92H, Lymphocytes (%) (Auto) 2L, Monocytes (%) (Auto) 5, Eosinophils (%) (Auto) 0, Basophils (%) (Auto) 0, Neutrophils # (Auto) 20.0H, Lymphocytes # (Auto) 0.4L, Monocytes # (Auto) 1.0, Eosinophils # (Auto) 0.0, Basophils # (Auto) 0.0, Immature Granulocyte # (Auto) 0.2H, Sodium Level 131L, Potassium Level 5.0, Chloride Level 97L, Carbon Dioxide Level 24, Anion Gap 10, Blood Urea Nitrogen 21H, Creatinine 0.76, Estimat Glomerular Filtration Rate 73, BUN/Creatinine Ratio 28, Glucose Level 209H, Calcium Level 8.6, Corrected Calcium 9.6, Total Bilirubin 0.5, Aspartate Amino Transf (AST/SGOT) 17, Alanine Aminotransferase (ALT/SGPT) 24, Alkaline Phosphatase 64, Total Protein 6.4, Albumin 2.8L 05/23/21 05:56: Glucometer 209H 05/23/21 10:49: Glucometer 230H 05/23/21 15:28: Glucometer 180H 05/23/21 20:17: Glucometer 221H 05/24/21 05:22: White Blood Count 20.9H, Red Blood Count 4.17, Hemoglobin 12.5, Hematocrit 39, Mean Corpuscular Volume 93, Mean Corpuscular Hemoglobin 30, Mean Corpuscular Hemoglobin Concent 32, Red Cell Distribution Width 15.6H, Platelet Count 318, Mean Platelet Volume 8.4L, Immature Granulocyte % (Auto) 2, Neutrophils (%) (Auto) 91H, Lymphocytes (%) (Auto) 2L, Monocytes (%) (Auto) 5, Eosinophils (%) (Auto) 0, Basophils (%) (Auto) 0, Neutrophils # (Auto) 19.1H, Lymphocytes # (Auto) 0.4L, Monocytes # (Auto) 1.0, Eosinophils # (Auto) 0.0, Basophils # (Auto) 0.0, Immature Granulocyte # (Auto) 0.4H, Sodium Level 130L, Potassium Level 5.2H, Chloride Level 96L, Carbon Dioxide Level 25, Anion Gap 9, Blood Urea Nitrogen 19H, Creatinine 0.73, Estimat Glomerular Filtration Rate 77, BUN/Creatinine Ratio 26, Glucose Level 205H, Calcium Level 8.6, Corrected Calcium 9.6, Total Bilirubin 0.5, Aspartate Amino Transf (AST/SGOT) 18, Alanine Aminotransferase (ALT/SGPT) 26, Alkaline Phosphatase 61, Total Protein 6.4, Albumin 2.8L 05/24/21 12:20: Glucometer 227H 05/24/21 16:44: Glucometer 220H 05/24/21 21:04: Glucometer 176H 05/25/21 05:30: Glucometer 173H 05/25/21 06:41: White Blood Count 20.7H, Red Blood Count 4.32, Hemoglobin 13.2, Hematocrit 40, Mean Corpuscular Volume 93, Mean Corpuscular Hemoglobin 31, Mean Corpuscular Hemoglobin Concent 33, Red Cell Distribution Width 15.3H, Platelet Count 316, Mean Platelet Volume 8.3L, Immature Granulocyte % (Auto) 2, Neutrophils (%) (Auto) 88H, Lymphocytes (%) (Auto) 3L, Monocytes (%) (Auto) 8, Eosinophils (%) (Auto) 0, Basophils (%) (Auto) 0, Neutrophils # (Auto) 18.1H, Lymphocytes # (Auto) 0.5L, Monocytes # (Auto) 1.6H, Eosinophils # (Auto) 0.0, Basophils # (Auto) 0.0, Immature Granulocyte # (Auto) 0.4H, Sodium Level 130L, Potassium Level 4.9, Chloride Level 94L, Carbon Dioxide Level 27, Anion Gap 9, Blood Urea Nitrogen 18, Creatinine 0.76, Estimat Glomerular Filtration Rate 73, BUN/Creatinine Ratio 24, Glucose Level 178H, Calcium Level 8.5, Corrected Calcium 9.5, Total Bilirubin 0.4, Aspartate Amino Transf (AST/SGOT) 14, Alanine Aminotransferase (ALT/SGPT) 23, Alkaline Phosphatase 65, Total Protein 6.2L, Albumin 2.8L 05/25/21 10:05: Glucometer 167H 05/25/21 16:09: Glucometer 217H 05/25/21 20:55: Glucometer 207H 05/26/21 05:04: Glucometer 122H 05/26/21 06:10: White Blood Count 21.5H, Red Blood Count 4.77, Hemoglobin 14.2, Hematocrit 44, Mean Corpuscular Volume 92, Mean Corpuscular Hemoglobin 30, Mean Corpuscular Hemoglobin Concent 32, Red Cell Distribution Width 15.3H, Platelet Count 316, Mean Platelet Volume 8.3L, Immature Granulocyte % (Auto) 4, Neutrophils (%) (Auto) 81H, Lymphocytes (%) (Auto) 5L, Monocytes (%) (Auto) 10, Eosinophils (%) (Auto) 0, Basophils (%) (Auto) 0, Neutrophils # (Auto) 17.4H, Lymphocytes # (Auto) 1.1, Monocytes # (Auto) 2.1H, Eosinophils # (Auto) 0.0, Basophils # (Auto) 0.1, Immature Granulocyte # (Auto) 0.9H, Sodium Level 129L, Potassium Level 4.9, Chloride Level 91L, Carbon Dioxide Level 25, Anion Gap 13, Blood Urea Nitrogen 20H, Creatinine 0.70, Estimat Glomerular Filtration Rate 81, BUN/Creatinine Ratio 29, Glucose Level 131H, Calcium Level 8.6, Corrected Calcium 9.4, Total Bilirubin 0.6, Aspartate Amino Transf (AST/SGOT) 18, Alanine Aminotransferase (ALT/SGPT) 29, Alkaline Phosphatase 68, Total Protein 6.7, Albumin 3.0L 05/26/21 10:51: Glucometer 182H 05/26/21 15:44: Glucometer 179H 05/26/21 20:15: Glucometer 184H 05/27/21 04:27: Glucometer 140H 05/27/21 06:37: White Blood Count 18.6H, Red Blood Count 4.38, Hemoglobin 13.0, Hematocrit 40, Mean Corpuscular Volume 91, Mean Corpuscular Hemoglobin 30, Mean Corpuscular Hemoglobin Concent 33, Red Cell Distribution Width 15.1H, Platelet Count 219, Mean Platelet Volume 8.2L, Immature Granulocyte % (Auto) 4, Neutrophils (%) (Auto) 83H, Lymphocytes (%) (Auto) 5L, Monocytes (%) (Auto) 8, Eosinophils (%) (Auto) 0, Basophils (%) (Auto) 0, Neutrophils # (Auto) 15.4H, Lymphocytes # (Auto) 0.9L, Monocytes # (Auto) 1.5H, Eosinophils # (Auto) 0.0, Basophils # (Auto) 0.0, Immature Granulocyte # (Auto) 0.8H, Sodium Level 128L, Potassium Level 4.5, Chloride Level 89L, Carbon Dioxide Level 27, Anion Gap 12, Blood Urea Nitrogen 20H, Creatinine 0.72, Estimat Glomerular Filtration Rate 78, BUN/Creatinine Ratio 28, Glucose Level 184H, Calcium Level 8.4L, Corrected Calci um 9.3, Total Bilirubin 0.6, Aspartate Amino Transf (AST/SGOT) 16, Alanine Aminotransferase (ALT/SGPT) 28, Alkaline Phosphatase 64, Total Protein 6.2L, Albumin 2.9L 05/27/21 11:41: Glucometer 174H 05/27/21 15:43: Glucometer 203H 05/28/21 05:53: Glucometer 110 05/28/21 11:26: Glucometer 141H 05/28/21 16:35: Glucometer 156H 05/28/21 20:28: Glucometer 150H 05/29/21 05:31: Glucometer 103 05/29/21 06:36: White Blood Count 24.1H, Red Blood Count 4.53, Hemoglobin 13.6, Hematocrit 42, Mean Corpuscular Volume 92, Mean Corpuscular Hemoglobin 30, Mean Corpuscular Hemoglobin Concent 33, Red Cell Distribution Width 14.6H, Platelet Count 249, Mean Platelet Volume 8.6L, Immature Granulocyte % (Auto) 4, Neutrophils (%) (Auto) 86H, Lymphocytes (%) (Auto) 4L, Monocytes (%) (Auto) 6, Eosinophils (%) (Auto) 0, Basophils (%) (Auto) 0, Neutrophils # (Auto) 20.6H, Lymphocytes # (Auto) 0.9L, Monocytes # (Auto) 1.5H, Eosinophils # (Auto) 0.1, Basophils # (Auto) 0.1, Immature Granulocyte # (Auto) 1.0H, Neutrophils % (Manual) 88, Lymphocytes % (Manual) 4, Monocytes % (Manual) 5, Atypical Lymphocytes 3, Blood Morphology Comment NORMAL, Sodium Level 125*L, Potassium Level 4.2, Chloride Level 85L, Carbon Dioxide Level 29, Anion Gap 11, Blood Urea Nitrogen 11, Creatinine 0.65, Estimat Glomerular Filtration Rate 88, BUN/Creatinine Ratio 17, Glucose Level 110H, Lactic Acid Level 0.96, Calcium Level 8.4L, Corrected Calcium 9.1, Total Bilirubin 0.6, Aspartate Amino Transf (AST/SGOT) 22, Alanine Aminotransferase (ALT/SGPT) 31, Alkaline Phosphatase 78, B-Type Natriuretic Peptide 224.3H, Total Protein 6.6, Albumin 3.1L, Procalcitonin 0.09 05/29/21 10:33: Glucometer 129H 05/29/21 15:25: Glucometer 147H 05/29/21 20:07: Glucometer 257H 05/30/21 05:32: Glucometer 78 05/30/21 06:26: White Blood Count 23.3H, Red Blood Count 4.18, Hemoglobin 12.8, Hematocrit 38, Mean Corpuscular Volume 92, Mean Corpuscular Hemoglobin 31, Mean Corpuscular Hemoglobin Concent 33, Red Cell Distribution Width 14.7H, Platelet Count 256, Mean Platelet Volume 8.7L, Immature Granulocyte % (Auto) 4, Neutrophils (%) (Aut o) 86H, Lymphocytes (%) (Auto) 4L, Monocytes (%) (Auto) 7, Eosinophils (%) (Auto) 0, Basophils (%) (Auto) 0, Neutrophils # (Auto) 20.0H, Lymphocytes # (Auto) 0.8L, Monocytes # (Auto) 1.6H, Eosinophils # (Auto) 0.0, Basophils # (Auto) 0.1, Immature Granulocyte # (Auto) 0.9H, Sodium Level 126L, Potassium Level 3.9, Chloride Level 86L, Carbon Dioxide Level 30, Anion Gap 10, Blood Urea Nitrogen 11, Creatinine 0.61, Estimat Glomerular Filtration Rate 94, BUN/Creatinine Ratio 18, Glucose Level 122H, Calcium Level 7.9L, Corrected Calcium 9.0, Total Bilirubin 0.6, Aspartate Amino Transf (AST/SGOT) 24, Alanine Aminotransferase (ALT/SGPT) 22, Alkaline Phosphatase 70, Total Protein 5.7L, Albumin 2.6L 05/30/21 12:53: Glucometer 198H 05/30/21 16:14: Glucometer 131H 05/30/21 20:37: Glucometer 123H 05/31/21 05:51: Glucometer 109 05/31/21 07:15: White Blood Count 27.9H, Red Blood Count 4.00, Hemoglobin 12.1, Hematocrit 37, Mean Corpuscular Volume 92, Mean Corpuscular Hemoglobin 30, Mean Corpuscular Hemoglobin Concent 33, Red Cell Distribution Width 15.0H, Platelet Count 228, Mean Platelet Volume 8.4L, Immature Granulocyte % (Auto) 3, Neutrophils (%) (Auto) 88H, Lymphocytes (%) (Auto) 3L, Monocytes (%) (Auto) 7, Eosinophils (%) (Auto) 0, Basophils (%) (Auto) 0, Neutrophils # (Auto) 24.5H, Lymphocytes # (Auto) 0.8L, Monocytes # (Auto) 1.8H, Eosinophils # (Auto) 0.0, Basophils # (Auto) 0.1, Immature Granulocyte # (Auto) 0.8H, Sodium Level 127L, Potassium Level 4.0, Chloride Level 85L, Carbon Dioxide Level 30, Anion Gap 12, Blood Urea Nitrogen 12, Creatinine 0.63, Estimat Glomerular Filtration Rate 91, BUN/Creatinine Ratio 19, Glucose Level 99, Calcium Level 8.3L, Corrected Calcium 9.3, Total Bilirubin 0.7, Aspartate Amino Transf (AST/SGOT) 25, Alanine Aminotransferase (ALT/SGPT) 31, Alkaline Phosphatase 68, Total Protein 5.9L, Albumin 2.7L, Procalcitonin 0.24H 05/31/21 11:06: Glucometer 110 05/31/21 16:42: Glucometer 155H 05/31/21 20:37: Glucometer 159H 06/01/21 05:20: Glucometer 116H 06/01/21 06:30: White Blood Count 24.2H, Red Blood Count 4.53, Hemoglobin 13.5, Hematocrit 41, Mean Corpuscular Volume 91, Mean Corpuscular Hemoglobin 30, Mean Corpuscular Hemoglobin Concent 33, Red Cell Distribution Width 15.0H, Platelet Count 226, Mean Platelet Volume 8.6L, Immature Granulocyte % (Auto) 2, Neutrophils (%) (Auto) 91H, Lymphocytes (%) (Auto) 2L, Monocytes (%) (Auto) 5, Eosinophils (%) (Auto) 0, Basophils (%) (Auto) 0, Neutrophils # (Auto) 22.1H, Lymphocytes # (Auto) 0.5L, Monocytes # (Auto) 1.1H, Eosinophils # (Auto) 0.0, Basophils # (Auto) 0.0, Immature Granulocyte # (Auto) 0.4H, Sodium Level 126L, Potassium Level 3.9, Chloride Level 84L, Carbon Dioxide Level 29, Anion Gap 13, Blood Urea Nitrogen 11, Creatinine 0.62, Estimat Glomerular Filtration Rate 93, BUN/Creati nine Ratio 18, Glucose Level 131H, Calcium Level 8.6, Corrected Calcium 9.6, Magnesium Level 1.9, Total Bilirubin 0.7, Aspartate Amino Transf (AST/SGOT) 24, Alanine Aminotransferase (ALT/SGPT) 33, Alkaline Phosphatase 79, Total Protein 6.5, Albumin 2.8L 06/01/21 12:37: Glucometer 175H 06/01/21 16:19: Glucometer 192H 06/01/21 20:00: Glucometer 190H 06/02/21 05:35: Glucometer 121H 06/02/21 10:48: Glucometer 151H Pending Labs Laboratory Tests 05/19/21 11:17: Glucometer 227 05/19/21 11:50: White Blood Count 14.2, Red Blood Count 3.82, Hemoglobin 11.7, Hematocrit 36, Mean Corpuscular Volume 93, Mean Corpuscular Hemoglobin 31, Mean Corpuscular Hemoglobin Concent 33, Red Cell Distribution Width 15.6, Platelet Count 280, Mean Platelet Volume 8.6, Immature Granulocyte % (Auto) 1, Neutrophils (%) (Auto) 89, Lymphocytes (%) (Auto) 3, Monocytes (%) (Auto) 7, Eosinophils (%) (Auto) 0, Basophils (%) (Auto) 0, Neutrophils # (Auto) 12.6, Lymphocytes # (Auto) 0.4, Monocytes # (Auto) 0.9, Eosinophils # (Auto) 0.0, Basophils # (Auto) 0.0, Immature Granulocyte # (Auto) 0.2, Neutrophils % (Manual) 88, Lymphocytes % (Manual) 5, Monocytes % (Manual) 5, Eosinophils % (Manual) 0, Basophils % (Manual) 0, Band Neutrophils 2, Anisocytosis SLIGHT, Sodium Level 127, Potassium Level 4.2, Chloride Level 93, Carbon Dioxide Level 22, Anion Gap 12, Blood Urea Nitrogen 19, Creatinine 0.78, Estimat Glomerular Filtration Rate 71, BUN/Creatinine Ratio 24, Glucose Level 228, Calcium Level 9.0, Corrected Calcium 9.6, Total Bilirubin 0.5, Aspartate Amino Transf (AST/SGOT) 31, Alanine Aminotransferase (ALT/SGPT) 46, Alkaline Phosphatase 67, Total Protein 7.3, Albumin 3.2 05/19/21 16:00: Glucometer 188 05/19/21 20:24: Glucometer 209 05/20/21 04:50: White Blood Count 16.0, Red Blood Count 3.70, Hemoglobin 11.2, Hematocrit 34, Mean Corpuscular Volume 92, Mean Corpuscular Hemoglobin 30, Mean Corpuscular Hemoglobin Concent 33, Red Cell Distribution Width 15.7, Platelet Count 286, Mean Platelet Volume 8.3, Immature Granulocyte % (Auto) 1, Neutrophils (%) (Auto) 91, Lymphocytes (%) (Auto) 3, Monocytes (%) (Auto) 5, Eosinophils (%) (Auto) 0, Basophils (%) (Auto) 0, Neutrophils # (Auto) 14.6, Lymphocytes # (Auto) 0.5, Monocytes # (Auto) 0.7, Eosinophils # (Auto) 0.0, Basophils # (Auto) 0.0, Immature Granulocyte # (Auto) 0.1, Sodium Level 128, Potassium Level 4.4, Chloride Level 96, Carbon Dioxide Level 22, Anion Gap 10, Blood Urea Nitrogen 18, Creatinine 0.76, Estimat Glomerular Filtration Rate 73, BUN/Creatinine Ratio 24, Glucose Level 229, Calcium Level 8.5, Corrected Calcium 9.4, Total Bilirubin 0.5, Aspartate Amino Transf (AST/SGOT) 19, Alanine Aminotransferase (ALT/SGPT) 35, Alkaline Phosphatase 56, Total Protein 6.4, Albumin 2.9 05/20/21 10:54: Glucometer 236 05/20/21 15:53: Glucometer 282 05/20/21 20:28: Glucometer 233 05/21/21 05:28: White Blood Count 25.1, Red Blood Count 4.09, Hemoglobin 12.4, Hematocrit 38, Mean Corpuscular Volume 92, Mean Corpuscular Hemoglobin 30, Mean Corpuscular Hemoglobin Concent 33, Red Cell Distribution Width 15.8, Platelet Count 371, Mean Platelet Volume 8.3, Immature Granulocyte % (Auto) 1, Neutrophils (%) (Auto) 91, Lymphocytes (%) (Auto) 2, Monocytes (%) (Auto) 5, Eosinophils (%) (Auto) 0, Basophils (%) (Auto) 0, Neutrophils # (Auto) 22.9, Lymphocytes # (Auto) 0.6, Monocytes # (Auto) 1.3, Eosinophils # (Auto) 0.0, Basophils # (Auto) 0.0, Immature Granulocyte # (Auto) 0.3, Sodium Level 125, Potassium Level 4.4, Chloride Level 93, Carbon Dioxide Level 21, Anion Gap 11, Blood Urea Nitrogen 22, Creatinine 0.81, Estimat Glomerular Filtration Rate 68, BUN/Creatinine Ratio 27, Glucose Level 206, Serum Osmolality 276, Calcium Level 8.9, Corrected Calcium 9.5, Total Bilirubin 0.6, Aspartate Amino Transf (AST/SGOT) 18, Alanine Aminotransferase (ALT/SGPT) 32, Alkaline Phosphatase 74, Total Protein 7.1, Albumin 3.2 05/21/21 06:30: Urine Osmolality 512, Urine Random Sodium <20 05/21/21 10:38: Glucometer 198 05/21/21 16:25: Glucometer 235 05/22/21 05:20: White Blood Count 20.4, Red Blood Count 3.79, Hemoglobin 11.4, Hematocrit 35, Mean Corpuscular Volume 92, Mean Corpuscular Hemoglobin 30, Mean Corpuscular Hemoglobin Concent 33, Red Cell Distribution Width 15.8, Platelet Count 314, Mean Platelet Volume 8.5, Immature Granulocyte % (Auto) 1, Neutrophils (%) (Auto) 93, Lymphocytes (%) (Auto) 2, Monocytes (%) (Auto) 4, Eosinophils (%) (Auto) 0, Basophils (%) (Auto) 0, Neutrophils # (Auto) 19.0, Lymphocytes # (Auto) 0.4, Monocytes # (Auto) 0.9, Eosinophils # (Auto) 0.0, Basophils # (Auto) 0.0, Immature Granulocyte # (Auto) 0.2, Neutrophils % (Manual) 96, Lymphocytes % (Manual) 1, Monocytes % (Manual) 2, Myelocytes % 1, Anisocytosis SLIGHT, Sodium Level 131, Potassium Level 4.7, Chloride Level 99, Carbon Dioxide Level 22, Anion Gap 10, Blood Urea Nitrogen 18, Creatinine 0.72, Estimat Glomerular Filtration Rate 78, BUN/Creatinine Ratio 25, Glucose Level 205, Calcium Level 8.5, Corrected Calcium 9.5, Phosphorus Level 3.4, Magnesium Level 2.3, Total Bilirubin 0.6, Aspartate Amino Transf (AST/SGOT) 13, Alanine Aminotransferase (ALT/SGPT) 23, Alkaline Phosphatase 55, Total Protein 5.9, Albumin 2.7, Digoxin Level 0.63 05/22/21 10:44: Glucometer 241 05/22/21 15:43: Glucometer 210 05/22/21 20:23: Glucometer 255 05/23/21 05:19: White Blood Count 21.6, Red Blood Count 3.97, Hemoglobin 11.9, Hematocrit 37, Mean Corpuscular Volume 93, Mean Corpuscular Hemoglobin 30, Mean Corpuscular Hemoglobin Concent 32, Red Cell Distribution Width 15.9, Platelet Count 327, Mean Platelet Volume 8.4, Immature Granulocyte % (Auto) 1, Neutrophils (%) (Auto) 92, Lymphocytes (%) (Auto) 2, Monocytes (%) (Auto) 5, Eosinophils (%) (Auto) 0, Basophils (%) (Auto) 0, Neutrophils # (Auto) 20.0, Lymphocytes # (Auto) 0.4, Monocytes # (Auto) 1.0, Eosinophils # (Auto) 0.0, Basophils # (Auto) 0.0, Immature Granulocyte # (Auto) 0.2, Sodium Level 131, Potassium Level 5.0, Chloride Level 97, Carbon Dioxide Level 24, Anion Gap 10, Blood Urea Nitrogen 21, Creatinine 0.76, Estimat Glomerular Filtration Rate 73, BUN/Creatinine Ratio 28, Glucose Level 209, Calcium Level 8.6, Corrected Calcium 9.6, Total Bilirubin 0.5, Aspartate Amino Transf (AST/SGOT) 17, Alanine Aminotransferase (ALT/SGPT) 24, Alkaline Phosphatase 64, Total Protein 6.4, Albumin 2.8 05/23/21 05:56: Glucometer 209 05/23/21 10:49: Glucometer 230 05/23/21 15:28: Glucometer 180 05/23/21 20:17: Glucometer 221 05/24/21 05:22: White Blood Count 20.9, Red Blood Count 4.17, Hemoglobin 12.5, Hematocrit 39, Mean Corpuscular Volume 93, Mean Corpuscular Hemoglobin 30, Mean Corpuscular Hemoglobin Concent 32, Red Cell Distribution Width 15.6, Platelet Count 318, Mean Platelet Volume 8.4, Immature Granulocyte % (Auto) 2, Neutrophils (%) (Auto) 91, Lymphocytes (%) (Auto) 2, Monocytes (%) (Auto) 5, Eosinophils (%) (Auto) 0, Basophils (%) (Auto) 0, Neutrophils # (Auto) 19.1, Lymphocytes # (Auto) 0.4, Monocytes # (Auto) 1.0, Eosinophils # (Auto) 0.0, Basophils # (Auto) 0.0, Immature Granulocyte # (Auto) 0.4, Sodium Level 130, Potassium Level 5.2, Chloride Level 96, Carbon Dioxide Level 25, Anion Gap 9, Blood Urea Nitrogen 19, Creatinine 0.73, Estimat Glomerular Filtration Rate 77, BUN/Creatinine Ratio 26, Glucose Level 205, Calcium Level 8.6, Corrected Calcium 9.6, Total Bilirubin 0.5, Aspartate Amino Transf (AST/SGOT) 18, Alanine Aminotransferase (ALT/SGPT) 26, Alkaline Phosphatase 61, Total Protein 6.4, Albumin 2.8 05/24/21 12:20: Glucometer 227 05/24/21 16:44: Glucometer 220 05/24/21 21:04: Glucometer 176 05/25/21 05:30: Glucometer 173 05/25/21 06:41: White Blood Count 20.7, Red Blood Count 4.32, Hemoglobin 13.2, Hematocrit 40, Mean Corpuscular Volume 93, Mean Corpuscular Hemoglobin 31, Mean Corpuscular Hemoglobin Concent 33, Red Cell Distribution Width 15.3, Platelet Count 316, Mean Platelet Volume 8.3, Immature Granulocyte % (Auto) 2, Neutrophils (%) (Auto) 88, Lymphocytes (%) (Auto) 3, Monocytes (%) (Auto) 8, Eosinophils (%) (Auto) 0, Basophils (%) (Auto) 0, Neutrophils # (Auto) 18.1, Lymphocytes # (Auto) 0.5, Monocytes # (Auto) 1.6, Eosinophils # (Auto) 0.0, Basophils # (Auto) 0.0, Immature Granulocyte # (Auto) 0.4, Sodium Level 130, Potassium Level 4.9, Chloride Level 94, Carbon Dioxide Level 27, Anion Gap 9, Blood Urea Nitrogen 18, Creatinine 0.76, Estimat Glomerular Filtration Rate 73, BUN/Creatinine Ratio 24, Glucose Level 178, Calcium Level 8.5, Corrected Calcium 9.5, Total Bilirubin 0.4, Aspartate Amino Transf (AST/SGOT) 14, Alanine Aminotransferase (ALT/SGPT) 23, Alkaline Phosphatase 65, Total Protein 6.2, Albumin 2.8 05/25/21 10:05: Glucometer 167 05/25/21 16:09: Glucometer 217 05/25/21 20:55: Glucometer 207 05/26/21 05:04: Glucometer 122 05/26/21 06:10: White Blood Count 21.5, Red Blood Count 4.77, Hemoglobin 14.2, Hematocrit 44, Mean Corpuscular Volume 92, Mean Corpuscular Hemoglobin 30, Mean Corpuscular He moglobin Concent 32, Red Cell Distribution Width 15.3, Platelet Count 316, Mean Platelet Volume 8.3, Immature Granulocyte % (Auto) 4, Neutrophils (%) (Auto) 81, Lymphocytes (%) (Auto) 5, Monocytes (%) (Auto) 10, Eosinophils (%) (Auto) 0, Basophils (%) (Auto) 0, Neutrophils # (Auto) 17.4, Lymphocytes # (Auto) 1.1, Monocytes # (Auto) 2.1, Eosinophils # (Auto) 0.0, Basophils # (Auto) 0.1, Immature Granulocyte # (Auto) 0.9, Sodium Level 129, Potassium Level 4.9, Chloride Level 91, Carbon Dioxide Level 25, Anion Gap 13, Blood Urea Nitrogen 20, Creatinine 0.70, Estimat Glomerular Filtration Rate 81, BUN/Creatinine Ratio 29, Glucose Level 131, Calcium Level 8.6, Corrected Calcium 9.4, Total Bilirubin 0.6, Aspartate Amino Transf (AST/SGOT) 18, Alanine Aminotransferase (ALT/SGPT) 29, Alkaline Phosphatase 68, Total Protein 6.7, Albumin 3.0 05/26/21 10:51: Glucometer 182 05/26/21 15:44: Glucometer 179 05/26/21 20:15: Glucometer 184 05/27/21 04:27: Glucometer 140 05/27/21 06:37: White Blood Count 18.6, Red Blood Count 4.38, Hemoglobin 13.0, Hematocrit 40, Mean Corpuscular Volume 91, Mean Corpuscular Hemoglobin 30, Mean Corpuscular Hemoglobin Concent 33, Red Cell Distribution Width 15.1, Platelet Count 219, Mean Platelet Volume 8.2, Immature Granulocyte % (Auto) 4, Neutrophils (%) (Auto) 83, Lymphocytes (%) (Auto) 5, Monocytes (%) (Auto) 8, Eosinophils (%) (Auto) 0, Basophils (%) (Auto) 0, Neutrophils # (Auto) 15.4, Lymphocytes # (Auto) 0.9, Monocytes # (Auto) 1.5, Eosinophils # (Auto) 0.0, Basophils # (Auto) 0.0, Immature Granulocyte # (Auto) 0.8, Sodium Level 128, Potassium Level 4.5, Chloride Level 89, Carbon Dioxide Level 27, Anion Gap 12, Blood Urea Nitrogen 20, Creatinine 0.72, Estimat Glomerular Filtration Rate 78, BUN/Creatinine Ratio 28, Glucose Level 184, Calcium Level 8.4, Corrected Calcium 9.3, Total Bilirubin 0.6, Aspartate Amino Transf (AST/SGOT) 16, Alanine Aminotransferase (ALT/SGPT) 28, Alkaline Phosphatase 64, Total Protein 6.2, Albumin 2.9 05/27/21 11:41: Glucometer 174 05/27/21 15:43: Glucometer 203 05/28/21 05:53: Glucometer 110 05/28/21 11:26: Glucometer 141 05/28/21 16:35: Glucometer 156 05/28/21 20:28: Glucometer 150 05/29/21 05:31: Glucometer 103 05/29/21 06:36: White Blood Count 24.1, Red Blood Count 4.53, Hemoglobin 13.6, Hematocrit 42, Mean Corpuscular Volume 92, Mean Corpuscular Hemoglobin 30, Mean Corpuscular Hemoglobin Concent 33, Red Cell Distribution Width 14.6, Platelet Count 249, Mean Platelet Volume 8.6, Immature Granulocyte % (Auto) 4, Neutrophils (%) (Auto) 86, Lymphocytes (%) (Auto) 4, Monocytes (%) (Auto) 6, Eosinophils (%) (Auto) 0, Basophils (%) (Auto) 0, Neutrophils # (Auto) 20.6, Lymphocytes # (Auto) 0.9, Monocytes # (Auto) 1.5, Eosinophils # (Auto) 0.1, Basophils # (Auto) 0.1, Immature Granulocyte # (Auto) 1.0, Neutrophils % (Manual) 88, Lymphocytes % (Manual) 4, Monocytes % (Manual) 5, Atypical Lymphocytes 3, Blood Morphology Comment NORMAL, Sodium Level 125, Potassium Level 4.2, Chloride Level 85, Carbon Dioxide Level 29, Anion Gap 11, Blood Urea Nitrogen 11, Creatinine 0.65, Estimat Glomerular Filtration Rate 88, BUN/Creatinine Ratio 17, Glucose Level 110, Lactic Acid Level 0.96, Calcium Level 8.4, Corrected Calcium 9.1, Total Bilirubin 0.6, Aspartate Amino Transf (AST/SGOT) 22, Alanine Aminotransferase (ALT/SGPT) 31, Alkaline Phosphatase 78, B-Type Natriuretic Peptide 224.3, Total Protein 6.6, Albumin 3.1, Procalcitonin 0.09 05/29/21 10:33: Glucometer 129 05/29/21 15:25: Glucometer 147 05/29/21 20:07: Glucometer 257 05/30/21 05:32: Glucometer 78 05/30/21 06:26: White Blood Count 23.3, Red Blood Count 4.18, Hemoglobin 12.8, Hematocrit 38, Mean Corpuscular Volume 92, Mean Corpuscular Hemoglobin 31, Mean Corpuscular Hemoglobin Concent 33, Red Cell Distribution Width 14.7, Platelet Count 256, Mean Platelet Volume 8.7, Immature Granulocyte % (Auto) 4, Neutrophils (%) (Auto) 86, Lymphocytes (%) (Auto) 4, Monocytes (%) (Auto) 7, Eosinophils (%) (Auto) 0, Basophils (%) (Auto) 0, Neutrophils # (Auto) 20.0, Lymphocytes # (Auto) 0.8, Monocytes # (Auto) 1.6, Eosinophils # (Auto) 0.0, Basophils # (Auto) 0.1, Immature Granulocyte # (Auto) 0.9, Sodium Level 126, Potassium Level 3.9, Chloride Level 86, Carbon Dioxide Level 30, Anion Gap 10, Blood Urea Nitrogen 11, Creatinine 0.61, Estimat Glomerular Filtration Rate 94, BUN/Creatinine Ratio 18, Glucose Level 122, Calcium Level 7.9, Corrected Calcium 9.0, Total Bilirubin 0.6, Aspartate Amino Transf (AST/SGOT) 24, Alanine Aminotransferase (ALT/SGPT) 22, Alkaline Phosphatase 70, Total Protein 5.7, Albumin 2.6 05/30/21 12:53: Glucometer 198 05/30/21 16:14: Glucometer 131 05/30/21 20:37: Glucometer 123 05/31/21 05:51: Glucometer 109 05/31/21 07:15: White Blood Count 27.9, Red Blood Count 4.00, Hemoglobin 12.1, Hematocrit 37, Mean Corpuscular Volume 92, Mean Corpuscular Hemoglobin 30, Mean Corpuscular Hemoglobin Concent 33, Red Cell Distribution Width 15.0, Platelet Count 228, Mean Platelet Volume 8.4, Immature Granulocyte % (Auto) 3, Neutrophils (%) (Auto) 88, Lymphocytes (%) (Auto) 3, Monocytes (%) (Auto) 7, Eosinophils (%) (Auto) 0, Basophils (%) (Auto) 0, Neutrophils # (Auto) 24.5, Lymphocytes # (Auto) 0.8, Monocytes # (Auto) 1.8, Eosinophils # (Auto) 0.0, Basophils # (Auto) 0.1, Immature Granulocyte # (Auto) 0.8, Sodium Level 127, Potassium Level 4.0, Chloride Level 85, Carbon Dioxide Level 30, Anion Gap 12, Blood Urea Nitrogen 12, Creatinine 0.63, Estimat Glomerular Filtration Rate 91, BUN/Creatinine Ratio 19, Glucose Level 99, Calcium Level 8.3, Corrected Calcium 9.3, Total Bilirubin 0.7, Aspartate Amino Transf (AST/SGOT) 25, Alanine Aminotransferase (ALT/SGPT) 31, Alkaline Phosphatase 68, Total Protein 5.9, Albumin 2.7, Procalcitonin 0.24 05/31/21 11:06: Glucometer 110 05/31/21 16:42: Glucometer 155 05/31/21 20:37: Glucometer 159 06/01/21 05:20: Glucometer 116 06/01/21 06:30: White Blood Count 24.2, Red Blood Count 4.53, Hemoglobin 13.5, Hematocrit 41, Mean Corpuscular Volume 91, Mean Corpuscular Hemoglobin 30, Mean Corpuscular Hemoglobin Concent 33, Red Cell Distribution Width 15.0, Platelet Count 226, Mean Platelet Volume 8.6, Immature Granulocyte % (Auto) 2, Neutrophils (%) (Auto) 91, Lymphocytes (%) (Auto) 2, Monocytes (%) (Auto) 5, Eosinophils (%) (Auto) 0, Basophils (%) (Auto) 0, Neutrophils # (Auto) 22.1, Lymphocytes # (Au to) 0.5, Monocytes # (Auto) 1.1, Eosinophils # (Auto) 0.0, Basophils # (Auto) 0.0, Immature Granulocyte # (Auto) 0.4, Sodium Level 126, Potassium Level 3.9, Chloride Level 84, Carbon Dioxide Level 29, Anion Gap 13, Blood Urea Nitrogen 11, Creatinine 0.62, Estimat Glomerular Filtration Rate 93, BUN/Creatinine Ratio 18, Glucose Level 131, Calcium Level 8.6, Corrected Calcium 9.6, Magnesium Level 1.9, Total Bilirubin 0.7, Aspartate Amino Transf (AST/SGOT) 24, Alanine Aminotransferase (ALT/SGPT) 33, Alkaline Phosphatase 79, Total Protein 6.5, Albumin 2.8 06/01/21 12:37: Glucometer 175 06/01/21 16:19: Glucometer 192 06/01/21 20:00: Glucometer 190 06/02/21 05:35: Glucometer 121 06/02/21 10:48: Glucometer 151 Discharge Home Medications: Active Scripts Active Breatherite Spacer-Adult Mask (Inhaler, Assist Devices) 1 Each Spacer Each MC QID qid Proair Hfa (Albuterol Sulfate) 1 Puff Puff 2 Puff IH QID 1 PUFF = 90 MCG Novolog Flexpen (Insulin Aspart) 300 Units/3 Ml Solution 3 Units SQ AC Stool Softener-Laxative Tablet (Sennosides/Docusate Sodium) 1 Each Tablet 2 Ea PO BID Sodium Chloride 1 Gm Tab 1 Gm PO BID Diltiazem 24Hr ER (Diltiazem HCl) 180 Mg Cap.er.24h 360 Mg PO DAILY Metoprolol Succinate 100 Mg Tab.er.24h 100 Mg PO DAILY Digox (Digoxin) 125 Mcg Tablet 0.125 Mg PO DAILY Eliquis (Apixaban) 5 Mg Tablet 5 Mg PO BID Sertraline HCl 25 Mg Tablet 25 Mg PO DAILY Rosuvastatin Calcium 20 Mg Tablet 20 Mg PO DAILY Omeprazole 20 Mg Capsule.dr 20 Mg PO DAILY Losartan Potassium 50 Mg Tablet 50 Mg PO DAILY Furosemide 20 Mg Tablet 20 Mg PO DAILY Amlodipine Besylate 5 Mg Tablet 5 Mg PO DAILY Amiodarone HCl 200 Mg Tablet 200 Mg PO DAILY Reported Metamucil Fiber Singles Packet (Psyllium Husk/Aspartame) 3.4 Gm Powd.pack 3.4 Gm PO Instructions to patient/family Please see electronic discharge instructions given to patient. Diagnosis/Problems Diagnosis/Problems (1) Atrial fibrillation with rapid ventricular response PAOLA HINDS DO Jun 02, 2021 06:14
[2021-06-02] MEDS: inSUlin ASPART (NovoLOG) 1 UNIT/0.01 ML (CHARGE PER UNIT) SC SCH ×2 (06:35→11:00)
[2021-06-02] MEDS: FUROSEMIDE 40 MG/4 ML INJ (LASIX) IVP SCH (07:45)
--- NOTE | 2021-06-02 08:48 | Cardiology Progress Note ---
Progress Note-Cardiology Events since last exam Date Seen by Provider: Jun 02, 2021 Time Seen by Provider: 08:44 Events since last exam I am following her due to atrial fibrillation. She is now off Covid isolation. The plan is to transfer to inpatient rehab soon. She normally follows with Dr. Villanueva at [facility] in [place], [place] for her atrial fibrillation. She remains in atrial fibrillation this morning. She denies any palpitations. She does have some mild shortness of breath. She denies chest discomfort or syncope. No change in her chronic, mild ankle edema. Certain portions of this document may have been dictated utilizing voice recognition technology. Inherent to this technology, typographical and grammatical errors may exist. As much as I am diligent to identify and correct these mistakes, some errors may remain in the document. Vitals Last set of Vitals Signs Vital Signs 05/29/21 06/02/21 16:31 08:05 Temp 35.6 Pulse 111 Resp 22 B/P (MAP) 124/68 Pulse Ox 94 O2 Delivery High Flow N/C O2 Flow Rate 2.00 FiO2 28 Exam Vital Signs Vital Signs Date Time Temp Pulse Resp B/P (MAP) Pulse Ox O2 Delivery O2 Flow Rate FiO2 06/02/21 08:05 35.6 111 22 124/68 94 High Flow N/C 2.00 05/29/21 16:31 28 Physical Exam General: Alert. No acute distress. Eye: No xanthelasma. HENT: Normocephalic. Neck: Jugular venous pressure does not appear elevated. Respiratory: Lungs are clear to auscultation. Respirations are non-labored. Breath sounds are equal. Symmetrical chest wall expansion. Cardiovascular: Mild tachycardia with irregular rhythm. No murmur. No gallop. Trace bilateral pretibial edema with chronic venous stasis change. Gastrointestinal: Soft. Normal bowel sounds. Skin: Warm. Dry. Neurologic: Alert and oriented to person, place, time. Cranial nerves 3-11 grossly intact. Psychiatric: Cooperative. Appropriate mood & affect. Labs Laboratory Tests Test 06/01/21 12:37 06/01/21 16:19 06/01/21 20:00 06/02/21 05:35 Range/Units Glucometer 175 H 192 H 190 H 121 H 70-110 MG/DL Diagnosis/Problems Diagnosis/Problems (1) Persistent atrial fibrillation Assessment & Plan: She had been on amiodarone at home which has been continued. She is on diltiazem, metoprolol and digoxin for rate control and apixaban for stroke prophylaxis. Her heart rates are intermittently elevated. She remains in atrial fibrillation this morning. I will increase her amiodarone to 200 mg twice daily. This should be done for the next 2-4 weeks. 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 Continue metoprolol and statin medication. She is not taking aspirin because she is on apixaban for the atrial fibrillation. (3) Primary hypertension Assessment & Plan: Blood pressure is well controlled with the present combination of medications. (4) Mixed hyperlipidemia Assessment & Plan: Continue rosuvastatin NGUYỄN JOHNSON JR, MD Jun 02, 2021 08:47
[2021-06-02 08:56] VITALS: BP 124/68
[2021-06-02] MEDS ORDERED: AMIODARONE 200 MG (CORDARONE) TAB PO SCH (09:00)
[2021-06-02] MEDS: polyethylene glycoL POWDER 17 GM (MIRALAX) PACK PO SCH (09:00)
[2021-06-02] MEDS: PSYLLIUM POWDER (METAMUCIL) 5.8 GM PACKET PO SCH (09:00)
[2021-06-02] MEDS: LACTULOSE SYRUP 10GM/15ML (ENULOSE) 30ML UDC PO SCH (09:00)
[2021-06-02] MEDS: APIXABAN 5 MG (ELIQUIS) TABLET PO SCH (10:26)
[2021-06-02] MEDS: DOCUSATE SODIUM 100 MG (COLACE) CAP PO SCH (10:26)
[2021-06-02] MEDS: SERTRALINE 50 MG (ZOLOFT) TABLET PO SCH (10:26)
[2021-06-02] MEDS: ROSUVASTATIN 20 MG (CRESTOR) TABLET PO SCH (10:26)
[2021-06-02] MEDS: meTOprolol SUCCINATE 100 MG (TOPROL XL) TAB PO SCH (10:27)
[2021-06-02] MEDS: PANTOPRAZOLE 20 MG TABLET (PROTONIX) PO SCH (10:27)
[2021-06-02] MEDS: SENNA W/DOCUSATE (SENOKOT S) TABLET PO SCH (10:27)
[2021-06-02] MEDS: DIGOXIN 0.125 MG (LANOXIN) TAB PO SCH (10:27)
[2021-06-02] MEDS: ACETAMINOPHEN 325 MG TABLET PO PRN ×2 (10:27→13:15)
[2021-06-02] MEDS: SODIUM CHLORIDE 1 GM TABLET PO SCH (10:40)
--- NOTE | 2021-06-02 10:44 | Occupational Ther Daily Note ---
OT Current Status-Daily Note Subjective Pt alert, sitting up in recliner. Pt stated that she has been moving around all morning and is too tired to do anything else. Pt reluctantly agrees to participate in OT. Mental Status/Objective Patient Orientation: Person, Place, Time, Situation Attachments: IV, Oxygen ADL-Treatment Pt set up for oral care and to wash face. Pt continued to state that she was too tired and needed to take her medications. Supplies left within reach of pt for when she was ready to complete oral care. After session, pt sitting in recliner with family and nrsg present. Call light/phone in reach. All needs met in room. Therapy Code Descriptions/Definitions Functional [place] Measure: 0=Not Assessed/NA 4=Minimal Assistance 1=Total Assistance 5=Supervision or Setup 2=Maximal Assistance 6=Modified [place] 3=Moderate Assistance 7=Complete IndependenceSCALE: Activities may be completed with or without assistive devices. 2-Umlwhavbmh-pcgeaen completes the activity by him/herself with no assistance from a helper. 5-Set-up or Clean-up Assistance-helper sets up or cleans up; patient completes activity. [place] assists only prior to or following the activity. 4-Supervision or Touching Assistance-helper provides verbal cues and/or touching/steadying and/or contact guard assistance as patient completes activity. Assistance may be provided throughout the activity or intermittently. 3-Partial/Moderate Assistance-helper does LESS THAN HALF the effort. [place] lifts, holds or supports trunk or limbs, but provides less than half the effort. 2-Substantial/Maximal Assistance-helper does MORE THAN HALF the effort. [place] lifts or holds trunk or limbs and provides more than half the effort. 4-Axssotbdd-iichwg does ALL the effort. Patient does none of the effort to complete the activity. Or, the assistance of 2 or more helpers is required for the patient to complete the activity. If activity was not attempted, code reason: 7-Patient Refused. 9-Not Applicable-not attempted and the patient did not perform the activity before the current illness, exacerbation or injury. 10-Not Attempted due to Environmental Limitations-(lack of equipment, weather restraints, etc.). 88-Not Attempted due to Medical Conditions or Safety Concerns. OT Senior Care Goals Senior Care Goals Time Frame: Jun 16, 2021 Oral Hygiene (QC): 5 Toileting Hygiene (QC): 4 Shower/Bathe Self (QC): 4 Upper Body Dressing (QC): 4 Lower Body Dressing (QC): 4 On/Off Footwear (QC): 4 1=Demonstrate adherence to instructed precautions during ADL tasks. 2=Patient will verbalize/demonstrate understanding of assistive devices/modifications for ADL. 3=Patient will improve strength/tolerance for activity to enable patient to perform ADL's. OT Education/Plan Problem List/Assessment Assessment: Decreased Activ Tolerance, Impaired Self-Care Skills Discharge Recommendations Plan/Recommendations: Continue POC Treatment Plan/Plan of Care Patient would benefit from OT for education, treatment and training to promote independence in ADL's, mobility, safety and/or upper extremity function for ADL's. Plan of Care: ADL Retraining, Functional Mobility, Group Exercise/Act as Ind, UE Funct Exercise/Act Treatment Duration: Jun 16, 2021 Frequency: 3 times per week Estimated Hrs Per Day: .25 hour per day Agreement: Yes Rehab Potential: Fair Time/GCodes Start Time: 10:28 Stop Time: 10:36 Total Time Billed (hr/min): 8 Billed Treatment Time 1 visit-ADL 1 (8 min) CECILIA NGO Jun 02, 2021 10:44
--- NOTE | 2021-06-02 10:44 | Physical Therapy Daily Note ---
PT Daily Note-Current Subjective Patient yells, "I can't stand up." Appearance incontinent BM Mental Status Patient Orientation: Confused Transfers SCALE: Activities may be completed with or without assistive devices. 3-Fifhtwlwtf-cotxrlu completes the activity by him/herself with no assistance from a helper. 5-Set-up or Clean-up Assistance-helper sets up or cleans up; patient completes activity. [place] assists only prior to or following the activity. 4-Supervision or Touching Assistance-helper provides verbal cues and/or touching/steadying and/or contact guard assistance as patient completes activity. Assistance may be provided throughout the activity or intermittently. 3-Partial/Moderate Assistance-helper does LESS THAN HALF the effort. [place] lift s, holds or supports trunk or limbs, but provides less than half the effort. 2-Substantial/Maximal Assistance-helper does MORE THAN HALF the effort. [place] lifts or holds trunk or limbs and provides more than half the effort. 7-Pzpxycsqt-hikprh does ALL the effort. Patient does none of the effort to complete the activity. Or, the assistance of 2 or more helpers is required for the patient to complete the activity. If activity was not attempted, code reason: 7-Patient Refused. 9-Not Applicable-not attempted and the patient did not perform the activity before the current illness, exacerbation or injury. 10-Not Attempted due to Environmental Limitations-(lack of equipment, weather restraints, etc.). 88-Not Attempted due to Medical Conditions or Safety Concerns. Sit to Stand (QC): 1 (x 2 with blocking bilateral knees) Toilet Transfer (QC): 1 (x 2 with blocking bilateral knees) attempted to perform sit to stand to FWW with patient resisting by leaning backward and not attempting to utilize bilateral LE Assessment [facility] with dependent assist of 2 and blocking bilateral knees with patient incontinent BM. Plan to transfer to [place] on this date per report. PT Short Term Goals Short Term Goals Time Frame: May 29, 2021 Roll Left & Right: 4 Sit to lyin Lying to sitting on side of be: 4 Sit to stand: 4 Chair/nda-fu-hlmpv transfer: 4 Toilet transfer: 4 Walk 10 feet: 3 Walk 50 feet with two turns: 3 PT Assisted Goals Assisted Goals PT Assisted Goals Time Frame: Jun 09, 2021 Roll Left & Right (QC): 5 Sit to Lying (QC): 5 Lying-Sitting on Side/Bed(QC): 5 Sit to Stand (QC): 5 Chair/Dlb-rf-Aiijd Xfer(QC): 5 Toilet Transfer (QC): 5 Car Transfer (QC): 5 Does the Patient Walk: Yes Walk 10 feet (QC): 4 Walk 50ft with 2 Turns (QC): 4 Walk 150 ft (QC): 4 PT Plan Treatment/Plan Treatment Plan: Continue Plan of Care Treatment Plan: Bed Mobility, Education, Functional Activity Tiffany, Functional Strength, Group Therapy, Gait, Safety, Therapeutic Exercise, Transfers Treatment Duration: Jul 07, 2021 Frequency: 6 times per week Estimated Hrs Per Day: .25 hour per day Patient and/or Family Agrees t: Yes Time/GCodes Time In: 1020 Time Out: 1032 Total Billed Treatment Time: 12 Total Billed Treatment 1 visit FA 12 min MARIANA CALIXTO PT Jun 02, 2021 10:44
[2021-06-02 11:52] VITALS: BP 106/60
== END 2021-06-02 14:55 | DRG 177 ==
LOC: ICU 10:43 → 4TH 05-23 10:00
PROVIDERS: ADMIT Internal Medicine; ATTEND Internal Medicine
PROC: 8E0ZXY6 Isolation (ICD-10-PCS; principal; 2021-05-19)
DX: U07.1 COVID-19 (principal); J12.82 Pneumonia due to coronavirus disease 2019; J96.01 Acute respiratory failure with hypoxia; J15.9 Unspecified bacterial pneumonia; E22.2 Syndrome of inappropriate secretion of antidiuretic hormone; I48.19 Other persistent atrial fibrillation; F03.90 Unspecified dementia, unspecified severity, without behavioral disturbance, psychotic disturbance, mood disturbance, and anxiety; Z73.0 Burn-out; E03.9 Hypothyroidism, unspecified; I10 Essential (primary) hypertension; Z79.01 Long term (current) use 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; R73.9 Hyperglycemia, unspecified; E87.70 Fluid overload, unspecified; I25.10 Atherosclerotic heart disease of native coronary artery without angina pectoris; E78.2 Mixed hyperlipidemia; R31.0 Gross hematuria
CPT/HCPCS: 36415; 71045; 80053; 80162; 82947; 83605; 83735; 83880; 83930; 83935; 84100; 84145; 84300; 85007; 85025; 85027; 93005; 94640; 94760; 94761